=== PATIENT | male | born 1940 | race Caucasian/White ===

== ENCOUNTER 2016-09-22 08:57 | Outpatient (CLI) | payer MEDICARE, MEDICAID ==
[~2016-09-22] VITALS: Ht 175.3 cm; Wt 86.4 kg
--- NOTE | ~2016-09-22 | HEMODYNAMI ---
PATIENT:DANAE HUA MEDICAL RECORD: [id number] : 40 LOCATION:DPITER ADMISSION DATE: 09/22/16 Generatedon:09/22/201611:22 Patient name: DANAE HUA Patient #: [id number] SSN: : 1940 Date of study: 09/22/2016 Page: Of Hemodynamic Procedure Report Patient Data Patient Demographics Procedure consent was obtained First Name: DANAE Gender: Male Last Name: MELITA Suffix: [facility] Initial: LULÚ : 1940 Patient #: [id number] Age: 76 year(s) Race: Additional ID: [id number] Contact details Address: [address] [place] [address] State: [place] City: [facility] Zip code: [address] Past Medical History History of disease Date Diagnosis Comments Peripheral vascular disease CHF->KNIGHT CAD Hypertension Allergies Allergen Reaction Date Comments Reported Penicillins 10/08/2015 Penicillins 09/22/2016 Admission Admission Data Admission Date: 09/22/2016 Admission Time: 8:57 Admit Source: Other Lab Results Lab Result Date: 09/22/2016 Lab Result Time: 0:00 Biochemistry Name Units Result Min Max BUN mg/dl 26 --(----)-* 7 18 Creatinine mg/dl 0.9 --(-*--)-- 0.6 1.3 CBC Name Units Result Min Max Hemoglobin g/dl 14.1 --(*---)-- 13.5 17.5 Procedure Procedure Types Cath Procedure Diagnostic Procedure C LH w/Coronaries PCI Procedure Coronary Stent Initial Peripheral Cath Diagnostic Procedure Cath Peripheral Srtki-Ixsdgzw-Bei-Off Procedure Description Procedure Date Procedure Date: 09/22/2016 Procedure Start Time: 10:50 Procedure End Time: 11:22 Procedure Staff Name Function Oni Isabel MD Performing Physician Mc Vega RT Scrub Bhaskar Bravo RN Nurse Heather Ferreira RT Monitor Gomez Chadwick RT Monitor Procedure Data Cath Procedure Fluoroscopy Diagnostic fluoroscopy Total fluoroscopy Time: 3.3 time: 3.3 min min Diagnostic fluoroscopy Total fluoroscopy dose: 738 dose: 738 mGy mGy Contrast Material Contrast Material Type Amount (ml) Isovue 300 136 Entry Location Entry Primary Successful Side Size Upsize Upsize Entry Closure Succes sful Closure Location (Fr) 1 (Fr) 2 (Fr) Remarks Device Remarks Femoral Left 5 Fr 6 Fr Exoseal artery Short Diagnostic catheters Device Type Used For End Catheter Placement Cordis 5Fr Pigtail Procedure Catheter (MP) Cordis 5Fr JL 4.0 Procedure Catheter (MP) Cordis 5Fr 3DRC Catheter Procedure (MP) Procedure Medications Medication Administration Route Dosage Oxygen NC 2 l/min Heparin Flush Bag added to field 2 bags (1000units/500ml NS) Fentanyl I.V. 50 mcg Versed I.V. 1 mg 0.9% NaCl I.V. 100 ml/hr Fentanyl I.V. 50 mcg Versed I.V. 1 mg Fentanyl I.V. 50 mcg Heparin Bolus I.V. 4000 units Fentanyl I.V. 50 mcg Hemodynamics Rest HGB: 14.1 (g/dl) Heart Rate: 65 (bpm) Pressure Samples Time Site Value (mmHg) Purpose Heart Use Rate(bpm) 10:59 LV 139/11,23 Snapshot 79 10:59 AO 137/75(101) Pullback 73 Gradients Valve Time Site Site 2 Mean SEP/DFP Peak To Heart Use 1 (mmHg) (sec/min) Peak Rate (mmHg) (bpm) Aortic 10:59 LV AO 20 60 73 137/75(101) Calculations Valve P-P Mean Valve Index Valve Source Name Gradient Area Flow (cm2) Aortic 20 20 Snapshots Pre Cath Intra NCS Post Cath Vital Signs Time Heart Resp SPO2 etCO2 [id number] NIBP (mmHg) Rhythm Pain Sedation Rate (ipm) (%) (mmHg) (mmHg) Status Level (bpm) 10:23:00 72 18 96 0 0 146/92(122) NSR 0 (11) 10(A) , No pain 10:27:16 71 18 94 0 0 127/88(113) NSR 0 (11) 10(A) , No pain 10:31:24 69 19 96 0 0 141/86(106) NSR 0 (11) 10(A) , No pain 10:35:40 70 20 97 0 0 131/78(113) NSR 0 (11) 10(A) , No pain 10:39:50 69 19 97 0 0 134/79(116) NSR 0 (11) 10(A) , No pain 10:44:04 69 18 97 0 0 137/77(122) NSR 0 (11) 10(A) , No pain 10:48:19 69 18 98 0 0 138/75(117) NSR 0 (11) 9(A) , No pain 10:52:35 69 18 95 0 0 129/74(107) NSR 0 (11) 9(A) , No pain 10:56:45 69 17 97 0 0 138/81(108) NSR 0 (11) 9(A) , No pain 11:00:57 69 17 95 0 0 131/84(114) NSR 0 (11) 9(A) , No pain 11:05:07 69 17 94 0 0 131/83(103) NSR 0 (11) 9(A) , No pain 11:09:17 70 17 97 0 0 147/85(126) NSR 0 (11) 9(A) , No pain 11:13:35 71 19 95 0 0 150/85(124) NSR 0 (11) 10(A) , No pain 11:17:53 70 17 94 0 0 138/86(127) NSR 0 (11) 10(A) , No pain Medications Time Medication Route Dose Verified Delivered Reason Notes Effectiveness by by 10:26:08 Oxygen NC 2 Bhaskar Bhaskar Per physician l/min Lawrence Bravo RN RN 10:26:18 Heparin Flush added 2 Bhaskar Bhaskar used for Bag to bags Lawrence Bravo procedure rn (1000units/500ml field RN NS) 10:48:25 Fentanyl I.V. 50 Bhaskar Bhaskar for sedation mcg Lawrence Bravo RN RN 10:48:34 Versed I.V. 1 mg Bhaskar Bhaskar for sedation Lawrence Bravo RN RN 10:48:51 0.9% NaCl I.V. 100 Bhaskar Bhaskar Per physician ml/hr Lawrence Bravo RN RN 10:54:35 Fentanyl I.V. 50 Bhaskar Bhaskar for sedation mcg Lawrence Bravo RN RN 10:54:40 Versed I.V. 1 mg Bhaskar Bhaskar for sedation Bravo Bravo RN RN 11:05:29 Fentanyl I.V. 50 Bhaskar Muro for sedation [facility] Lawrence Bravo RN RN 11:05:51 Heparin Bolus I.V. 4000 Bhaskar Muro for units Lawrence Bravo RN anticoagulation RN 11:06:33 Fentanyl I.V. 50 Bhaskar Muro for sedation [facility] Lawrence Bravo RN image editor Log Time Note 10:03:17 Bhaskar Bravo RN sent for patient. Start room use. 10:13:19 Time tracking: Regular hours 10:13:22 Plan of Care:Hemodynamics will remain stable., Cardiac rhythm will remain stable., Comfort level will be maintained., Respiratory function will remain adequate., Patient/ family verbilizes understanding of procedure., Procedure tolerated without complication., Recovers from procedure without complications.. 10:16:25 Patient received from Pre/Post Procedure Room to CCL 1 Alert and oriented. Tansferred to table in Supine position. 10:16:27 Warm blankets applied, and umberto hugger turned on for patient comfort. 10:16:27 Correct patient and procedure confirmed by team. 10:16:30 Signed procedure consent form obtained from patient. 10:16:31 ECG and BP/O2 sat monitors applied to patient. 10:16:32 Full Disclosure recording started 10:21:52 Vital chart was started 10:21:53 Baseline sample Acquired. 10:22:02 Rhythm: sinus rhythm 10:22:32 H&P Date Dictated: 09/13/2016 Within 30 days and on chart., H&P Addendum completed by physician on day of procedure. (MUST COMPLETE FOR ALL OUTPATIENTS). 10:22:34 Pre-procedure instructions explained to patient. 10:22:34 Pre-op teaching completed and patient verbalized understanding. 10:22:37 Family in waiting room. 10:22:40 Patient NPO since Midnight. 10:22:48 Patient allergic to Penicillins 10:22:52 Is the patient allergic to Iodine/contrast media? No. 10:22:55 Is patient on blood thinner?Yes 10:23:00 ACC The patient was administered the following blood thiners within the last 24 hours: ACCPlavix 10:23:04 Patient diabetic? No. 10:23:07 ----Pre-sedation anethsthesia assessment.---- 10:23:10 Previous problem with sedation/anesthesia? No ? 10:23:13 Snore? Yes 10:23:15 Sleep apnea? No 10:23:17 Deviated septum? No 10:23:19 Opens mouth fully? Yes 10:23:20 Sticks out tongue? Yes 10:23:27 Airway obstruction? Yes COPD 10:23:33 Dentures? No ? 10:23:38 Pre procedure: right dorsailis pedis pulse 1+ Palpable, but thready & weak; easily obliterated 10:23:43 Patient pain scale 0/10 ?. 10:23:53 IV patent on arrival in left forearm with 0.9% NaCl at [facility]. 10:26:08 Oxygen 2 l/min NC was administered by Bhaskar Bravo RN; Per physician; 10:26:18 Heparin Flush Bag (1000units/500ml NS) 2 bags added to field was administered by Bhaskar Bravo RN; used for procedure; 10:30:04 Lab Result : BUN 26 mg/dl 10:30:04 Lab Result : Hemoglobin 14.1 g/dl 10:30:04 Lab Result : Creatinine 0.9 mg/dl 10:30:08 Lab results completed and on chart. 10:30:13 Right groin area was prepped with chlora-prep and draped in sterile fashion 10:30:16 Alarms reviewed by R. N. 10:30:31 Sharps counted by scrub and verified by R.N. 10:30:37 Use device set Femoral Dx 10:30:40 Acist Syringe opened to sterile field. 10:30:41 Bag Decanter opened to sterile field. 10:30:43 Medline Cath Pack opened to sterile field. 10:30:44 Terumo 5Fr [place] Sheath opened to sterile field. 10:30:47 St Won 260cm J .035 wire opened to sterile field. 10:30:49 Acist Hand Control opened to sterile field. 10:30:50 Acist Manifold opened to sterile field. 10:30:54 Diagnostic Infinity 5Fr Multipack catheter opened to sterile field. 10:30:56 Tegaderm 4 x 4 opened to sterile field. 10:31:44 Physician arrived 10:31:45 --------ALL STOP TIME OUT------ 10:31:46 Final Timeout: patient, procedure, and site verified with staff and physician. All members of the team are in agreement. 10:31:48 Right groin site verified by team. 10:31:52 Physical assessment completed. ASA score P 2 - A patient with mild systemic disease as per Oni Isabel MD. 10:31:56 Sedation plan: IV Moderate Sedation Versed, Fentanyl 10:37:08 Zero performed for pressure channel P1 10:40:09 Admit Source: Other 10:40:16 Baseline sample Acquired. 10:48:25 Fentanyl 50 mcg I.V. was administered by Bhaskar Bravo RN; for sedation; 10:48:34 Versed 1 mg I.V. was administered by Bhaskar Bravo RN; for sedation; 10:48:51 0.9% NaCl 100 ml/hr I.V. was administered by Bhaskar Bravo RN; Per physician; 10:50:13 Procedure started. 10:50:21 Local anesthetic to right femoral artery with Lidocaine 2% by Oni Isabel MD.INITIAL ACCESS ONLY 10:54:35 Fentanyl 50 mcg I.V. was administered by Bhaskar Bravo RN; for sedation; 10:54:40 Versed 1 mg I.V. was administered by Bhaskar Bravo RN; for sedation; 10:57:15 UNABLE TO ADVANCE J WIRE INTO RIGHT ILIAC 10:57:25 Local anesthetic to left femerol artery with Lidocaine 2% by Oni Isabel MD.ADDITIONAL ACCESS 10:57:43 A 5 Fr sheath was inserted into the Left Femoral artery 10:58:00 A Cordis 5Fr Pigtail Catheter (MP) was advanced over the wire and used for Procedure. 10:58:17 Procedure type changed to Cath procedure, Diagnostic procedure, LHC, LHC w/Coronaries, PCI procedure, Coronary Stent Initial, Peripheral Cath Diagnostic Procedure, Cath Peripheral, Vcidw-Izkiqay-Grc-Off 10:59:37 Abdominal Aortagram was performed. 10:59:56 Left leg runoff performed. 11:01:01 Right leg runoff performed. 11:03:06 LV gram done using ALMEIDA 11:03:08 LV hemodynamics recorded. 11:03:17 Catheter removed. 11:03:22 A Cordis 5Fr JL 4.0 Catheter (MP) was advanced over the wire and used for Procedure. 11:03:25 LCA angiography performed. 11:03:32 Catheter removed. 11:03:37 A Cordis 5Fr 3DRC Catheter () was advanced over the wire and used for Procedure. 11:04:13 [place] Whisper J 300cm 0.014 guide wire opened to sterile field. 11:04:14 [place] BasixCompak Inflation Kit opened to sterile field. 11:04:20 RCA angiography performed. 11:04:47 Catheter removed. 11:04:48 Proceeding to intervention. 11:04:57 PCI Cath status Elective 11:05:16 Terumo 6Fr [place] Sheath opened to sterile field. 11:05:29 Fentanyl 50 mcg I.V. was administered by Bhaskar Bravo RN; for sedation; 11:05:35 Sheath upsized to a 6 Fr Short. 11:05:51 Heparin Bolus 4000 units I.V. was administered by Bhaskar Bravo RN; for anticoagulation; 11:06:04 Cordis 6FR XBLAD 4.0 guide catheter opened to sterile field. 11:06:32 ACC PCI Site: [facility] has 80% stenosis. 11:06:33 Fentanyl 50 mcg I.V. was administered by Bhaskar Bravo RN; for sedation; 11:06:42 6 Fr XBLAD 4 guide catheter was inserted over the wire 11:07:43 TimeBridgeISPER wire advanced. 11:09:24 Inflation Number: 1 A Medtronic Resolute 3.0 X 12 stent was prepped and advanced across the Mid CX. The stent was deployed at 17 JOSE for 0:10 (min:sec). 11:09:33 Stent catheter was removed intact over wire. 11:09:34 Wire removed. 11:09:35 Guide catheter removed. 11:09:46 Cordis 6Fr Exoseal opened to sterile field. 11:09:59 Sheath removed intact; hemostasis achieved with Exoseal to the Left Femoral artery. 11:10:05 Procedure ended.(Physican Out) 11:11:48 Fluoroscopy time 03.30 minutes. 11:11:55 Fluoroscopy dose: 738 mGy 11:11:55 Flurop Dose total: 738 11:12:01 Contrast amount:Isovue 300 136ml. 11:12:03 Sharps counted by scrub and verified by R.N. 11:20:09 Post left femerol artery:oozing 11:20:19 Femstop placed over the left femerol artery at 113 mmHg. Hemostasis achieved. 11:20:22 Post Procedure Pulses reassessed and unchanged 11:21:50 Post procedure: left dorsailis pedis pulse Doppler. 11:21:54 Post-procedure physical assessment completed. ASA score P 2 - A patient with mild systemic disease as per Oni Isabel MD. 11:21:58 Post procedure rhythm: sinus rhythm 11:22:00 Procedure and supply charges have been captured, reviewed, submitted and are correct. 11:22:02 Vital chart was stopped 11:22:03 See physician's report for complete and final results. 11:22:07 Report given to Pre/Post Procedure Room. 11:22:12 Patient transfered to Pre/Post Procedure Room with Stretcher. 11:22:15 Procedure ended. 11:22:15 Full Disclosure recording stopped 11:22:27 End room use (Document Last) Intervention Summary Intervention Notes Time ActionType Lesion and Equipment Action# Pressure Duration Attributes Used 11:09:24 Place stent Mid CX Medtronic 1 17 00:10 Resolute 3.0 X 12 stent Device Usage Item Name Manufacture Quantity Catalog Hospital Part Current Minimal Lot# / Number Charge Number Stock Stock Serial# Code Acist Acist 1 59625 093793 061434 832282 20 Syringe Medical Systems Inc Bag Microtek 1 2002S 296998 11500 592432 5 DecGreen Is Good Medical Inc. Medline Cardinal 1 [id number] 902504 26381 426767 5 Cath Pack Health Terumo 5Fr Terumo 1 PEE060 517678 192787 325016 [address] St Won 1 927127 324443 708188 424314 30 260cm J .035 wire Acist Hand Acist 1 73482 651129 471616 178128 5 Control Medical Systems Inc Acist Acist 1 13610 960023 964348 147651 5 Manifold Medical Systems Inc Diagnostic Cardinal 1 PO1021 756421 24792 281379 30 Infinity Health 5Fr Multipack catheter Tegaderm 4 3M 1 1626W 558569 091014 431288 5 x 4 Cordis 5Fr Cardinal 1 996444 5 Pigtail Health Catheter (MP) Cordis 5Fr Cardinal 1 764434 5 JL 4.0 Health Catheter (MP) Cordis 5Fr Cardinal 1 728849 5 3DRC Health Catheter (MP) [place] 1 [id number] 015060 288732 231927 5 Whisper J Vascular 300cm 0.014 guide wire [facility] 1 DO8779 503646 373680 251470 15 [id number] BasixCompak Medical Inflation Kit Terumo 6Fr Terumo 1 JBV392 908002 072834 352991 40 [place] Sheath Cordis 6FR Cardinal 1 [id number] 698399 305688 544924 3 XBLAD 4.0 Health guide catheter Medtronic Medtronic 1 [id number] 899953 969970 9 [id number] Resolute 3.0 X 12 stent Cordis 6Fr Cardinal 1 EX600 061141 662039 977812 10 [facility] Signature Audit [place] Stage Time Signature Unsigned Intra-Procedure 09/22/2016 Gomez Chadwick 11:22:54 AM RT(R) (CV) Signatures Monitor : Heather Signature : Hanna RT Date : Time : Monitor : Gomez Chadwick RT Signature : Date : Time : [place] [id number] [place] [address]
[~2016-09-22 08:57] MED LIST: ASPIRIN81 MG PO; COUMADIN5 MG PO; FOLTX TABLET1 EACH PO; HYDROCODONE-APA1 TAB PO; MUCINEX600 MG PO; PACERONE100 MG PO; PLAVIX75 MG PO
[2016-09-22] MEDS ORDERED: NAMENDA5 MG PO (09:43)
[2016-09-22] MEDS ORDERED: PACERONE200 MG PO (09:44)
[2016-09-22] MEDS ORDERED: LIPITOR10 MG PO (09:44)
[2016-09-22] MEDS ORDERED: FLOMAX0.4 MG PO (09:44)
[2016-09-22] MEDS ORDERED: VIBRAMYCIN 100100 MG PO (09:45)
[2016-09-22 09:54] VITALS: BP 138/79; Ht 175.3 cm; Wt 86.4 kg
[2016-09-22 09:54] LABS: BASOPHILS 0.4 % (0.0-2.0); EOSINOPHILS 1.5 % (0-7); HEMATOCRIT 43.1 % (42.0-54.0); HEMOGLOBIN 14.1 g/dL (13.5-17.5); IMMATURE GRANULOCYTES 0.8 % (0-5); LYMPHOCYTES 19.2 % (15-50); MCH 30.9 pg (26.0-34.0); MCHC 32.7 g/dL (31.0-37.0); MCV 94.5 fL (80.0-100.0); MEAN PLATELET VOLUME 10.3 fL (7.4-10.4); MONOCYTES 6.4 % (2-11); NEUTROPHILS 71.7 % (40-80); PLATELET COUNT 229 10x3/uL (130-400); RBC 4.56 10x6/uL (4.20-6.10); RDW 14.3 % (11.5-14.5)
[2016-09-22 10:05] LABS: CALC OSMOLALITY 282 mosm/kg (275-300); CALCIUM 8.7 mg/dL (8.5-10.1); CARBON DIOXIDE 23.7 mmol/L (21.0-32.0); CHLORIDE - SERUM 103 mmol/L (98-107); CREATININE - SERUM 0.9 mg/dL (0.6-1.3); GLUCOSE 104 mg/dL (74-106); POTASSIUM - SERUM 4.3 mmol/L (3.5-5.1); SODIUM 139 mmol/L (136-145); UREA NITROGEN 26 mg/dL (7-18); eGFR NON AFRICAN AMERICAN 87 mL/min (90-120)
--- NOTE | 2016-09-22 11:45 | NUR ---
RESTING QUIETLY. 2L NC, NO RESP DISTRESS NOTED. VSS. NO C/O CHEST PAIN OR NAUSEA. LEFT GROIN CDI, NO BLEEDING OR HEMATOMA NOTED. FEMSTOP IN PLACE. INSTRUCTED PT TO KEEP HEAD FLAT ON PILLOW AND LEFT LEG STRAIGHT.
--- NOTE | 2016-09-22 12:00 | NUR ---
QUIETLY RESTING IN ROOM. VSS. NO C/O AT THIS TIME. LEFT GROIN CDI, NO BLEEDING OR HEMATOMA NOTED. NO RESP DISTRESS NOTED. WILL CONTINUE TO MONITOR.
--- NOTE | 2016-09-22 12:30 | NUR ---
FEMSTOP PRESSURE DECREASED BY 20. NO BLEEDING NOTED TO LEFT GROIN. VSS. NO C/O CHEST PAIN OR NAUSEA. 2L NC, NO RESP DISTRESS NOTED. AT BEDSIDE, CALL LIGHT WITHIN REACH.
--- NOTE | 2016-09-22 13:03 | NUR ---
FEMSTOP PRESSURE DECREASED BY 20. NO BLEEDING OR HEMATOMA NOTED. VSS. NO C/O CHEST PAIN OR NAUSEA.
--- NOTE | 2016-09-22 13:31 | NUR ---
FEMSTOP PRESSURE DECREASED BY 20. NO BLEEDING NOTED TO SITE. VSS. CALL LIGHT WITHIN REACH.
--- NOTE | 2016-09-22 14:15 | NUR ---
REMAINING FEMSTOP PRESSURE REMOVED. NO BLEEDING NOTED AT SITE. VSS. NO C/O AT THIS TIME.
--- NOTE | 2016-09-22 15:30 | NUR ---
HOB ELEVATED 30 DEGREES. NO BLEEDING NOTED TO LEFT GROIN.
--- NOTE | 2016-09-22 15:50 | NUR ---
LEFT FA PIV D/C'D WITH CATHETER INTACT. BAND AID TO SITE. UP TO BEDSIDE TO GET DRESSED.
--- NOTE | 2016-09-22 16:00 | NUR ---
UP TO RESTROOM TO VOID.
--- NOTE | 2016-09-22 16:10 | NUR ---
DISCHARGE INSTRUCTIONS GIVEN, VERBALIZED UNDERSTANDING.
--- NOTE | 2016-09-22 16:15 | NUR ---
TAKEN OUT VIA WHEELCHAIR BY CATH UX CONSULTANT. LEFT FACILITY WITH FAMILY MEMBER AND ALL PERSONAL BELONGINGS.
--- NOTE | 2016-09-23 08:41 | OP ---
PATIENT NAME: DANAE HUA SR MEDICAL RECORD: [id number] :40 LOCATION:D.CAT ADMISSION DATE: SURGEON: MADHURI MELÉNDEZ MD DATE OF OPERATION: 09/22/2016 PROCEDURES: 1. PTCA stent of the left circumflex. 2. Left heart catheterization. 3. Selective coronary angiography. 4. Left ventriculogram. INDICATIONS: Angina and coronary artery disease. PROCEDURE IN DETAIL: After informed consent was obtained and after a detailed explanation of risks, benefits as well as alternative therapies, the patient elected to proceed with angiogram and angioplasty. The left femoral area had a preexisting sheath from aortofemoral runoff. All catheters exchanged through this sheath. FINDINGS: Left ventriculogram was performed in standard 30-degree ALMEIDA view, reveals good cardiac wall motion throughout all segments. Overall ejection fraction is 60%. SELECTIVE CORONARY ANGIOGRAPHY: 1. Left main has no significant angiographic disease. 2. Left anterior descending has previously placed stents, these are widely patent with no significant restenosis. No disease elsewise throughout the LAD or its branches. 3. Left circumflex has previously placed stents. There is 1 area of 80% in-stent restenosis in the mid vessel. 4. Right coronary has moderate irregularities, but no flow-limiting stenosis. PTCA STENT OF THE LEFT CIRCUMFLEX: The stent used was a 3.0 x 12 mm Resolute, taken to 17 atmospheres. Result was 0% residual stenosis. OVERALL IMPRESSION: Successful percutaneous transluminal coronary angioplasty stent of the left circumflex going from 80% initial stenosis to 0% residual. TRANSINT:[id number] Voice Confirmation ID: [id number] DOCUMENT ID: [id number] MADHURI MELÉNDEZ MD at 0841 CC: [id number] DICTATION DATE: 09/22/16 1114 SUPERVISOR LAUNDRY: 09/22/16 1902 DEP CLI 09/22/16 [facility] [address] [place] [address]
--- NOTE | 2016-09-23 08:41 | OP ---
PATIENT NAME: DANAE HUA SR MEDICAL RECORD: [id number] :40 LOCATION:D.CAT ADMISSION DATE: SURGEON: MADHURI MELÉNDEZ MD DATE OF OPERATION: 09/22/2016 PROCEDURES: 1. Aortofemoral runoff. 2. Abdominal aortography. INDICATIONS: Claudication and peripheral vascular disease. PROCEDURE IN DETAIL: After informed consent was obtained and after a detailed explanation of risks, benefits as well as alternative therapies, the patient elected to proceed with angiogram and aortofemoral runoff. The left femoral area was prepped and draped in normal sterile fashion. The left femoral artery was cannulated via modified Seldinger technique with placement of 6-Danish sheath. All catheters exchanged through this sheath. FINDINGS: Abdominal aortography was performed. The catheter was pulled down for aortofemoral runoff. Abdominal aortography reveals no significant abdominal aortic disease. No dissection or aneurysm formation. No renal artery stenosis. RIGHT LEG: A. Iliac: The common internal and external iliacs are heavily calcified. The external iliacs have previously placed stents, these are patent and very tortuous as well. B. Femoral system: The common and deep femoral are widely patent. Superficial femoral has multiple areas of previously placed stents, these are widely patent with no significant restenosis. No disease elsewise. C. Popliteal and infrapopliteal vessels are patent giving 3-vessel runoff to the foot, although diffusely diseased. LEFT LEG: A. Iliac: The common internal and external iliacs are tortuous, calcified, but no flow-limiting stenosis. B. Femoral system: The common and deep femoral are widely patent. Superficial femoral was totally occluded. There is a very large collateralization off the deep femoral system to distal SFA, this really acts as a femoral popliteal bypass graft due to its size, it is widely patent. The distal SFA is widely patent. C: Popliteal and infrapopliteal vessels are patent giving 3-vessel runoff to the foot. OVERALL IMPRESSION: Wide patency of the previously placed stents on the right SFA. Wide patency of large collateralization off the deep femoral system to the left distal SFA. Continue medical management of peripheral vascular disease and peripheral risk factors. TRANSINT:[id number] Voice Confirmation ID: [id number] DOCUMENT ID: [id number] OPERATIVE REPORT [id number] MELITADANAE MADHURI ZAMORA SR, MD at 0841 CC: [id number] DICTATION DATE: 09/22/16 1113 SNAKER: 09/22/16 1858 DEP CLI 09/22/16 [facility] [address] [place] [address]
== END 2016-09-22 16:15 | disposition home or self-care (01) ==
LOC: D.CATH 08:57
PROVIDERS: Internal Medicine Interventional Cardiology
DX: I25.119 Atherosclerotic heart disease of native coronary artery with unspecified angina pectoris (principal); I70.213 Atherosclerosis of native arteries of extremities with intermittent claudication, bilateral legs
CPT/HCPCS: 93458; C9600

== ENCOUNTER → 2016-10-22 09:03 | Outpatient (CLI) | payer MEDICARE, MEDICAID ==
[2016-09-22 09:54] VITALS: BMI 28.1
[~2016-10-22 09:03] MED LIST changes: +FLOMAX0.4 MG PO; +LIPITOR10 MG PO; +NAMENDA5 MG PO; +PACERONE200 MG PO; +VIBRAMYCIN 100100 MG PO
[2016-10-22 11:13] LABS: % SATURATION 21 % (15-55); IRON 60 ug/dl (35-150); TOTAL IRON BIND CAPACITY 277 ug/dl (260-445); UNSAT IRON BIND CAPACITY 217 ug/dl (150-375)
[2016-10-22 11:37] LABS: MAGNESIUM - SERUM 1.8 mg/dL (1.8-2.4)
[2016-10-22 16:13] LABS: ALBUMIN 3.8 g/dL (3.4-5.0); BILIRUBIN - DIRECT 0.09 mg/dL (0.00-0.30); BILIRUBIN - INDIRECT 0.31 mg/dL (0.00-1.00); BILIRUBIN - TOTAL 0.4 mg/dL (0.2-1.3); CHOL - HDL RATIO 3.7 ratio (2.3-4.9); LDL-HDL RATIO 2.1 ratio (1.5-3.5); PROTEIN - SERUM 7.1 g/dL (6.4-8.2); THYROID STIMULATING HORMONE 0.68 uIU/mL (0.36-3.74)
== END | disposition home or self-care (01) ==
LOC: D.LABREF 09:03
PROVIDERS: Family Medicine
DX: D64.9 Anemia, unspecified (principal); I25.10 Atherosclerotic heart disease of native coronary artery without angina pectoris

== ENCOUNTER → 2016-11-10 15:09 | Outpatient (CLI) | payer MEDICARE, MEDICAID ==
[2016-09-22 09:54] VITALS: BMI 28.1
[~2016-11-10 15:09] MED LIST changes: +HYDROCODON-ACE1 EAC9 PO; +SPIRIVA18 MCG INH; +VENTOLIN HFA18 GM INH
== END | disposition home or self-care (01) ==
LOC: D.LABREF 15:09
DX: L03.119 Cellulitis of unspecified part of limb (principal)

== ENCOUNTER 2016-11-11 10:44 | Inpatient (IN) | payer MEDICARE, MEDICAID ==
[~2016-11-11] VITALS: Ht 175.3 cm; Wt 88.6 kg
[~2016-11-11 10:44] MED LIST changes: -HYDROCODON-ACE1 EAC9 PO; -SPIRIVA18 MCG INH; -VENTOLIN HFA18 GM INH
[2016-11-11 11:00] VITALS: BP 131/73
[2016-11-11] MEDS ORDERED: SPIRIVA18 MCG INH (11:02)
[2016-11-11] MEDS ORDERED: VENTOLIN HFA18 GM INH (11:03)
[2016-11-11] MEDS ORDERED: HYDROCODON-ACE1 EAC9 PO (11:04)
[2016-11-11 12:00] LABS: BASOPHILS 0.2 % (0-2); EOSINOPHILS 1.8 % (0-7); HEMATOCRIT 40.6 % (42.0-54.0); HEMOGLOBIN 13.5 g/dL (13.5-17.5); IMMATURE GRANULOCYTES 0.5 % (0-5); LYMPHOCYTES 12.2 % (15-50); MCH 30.9 pg (26.0-34.0); MCHC 33.3 g/dL (31.0-37.0); MCV 92.9 fL (80.0-100.0); MEAN PLATELET VOLUME 10.7 fL (7.4-10.4); MONOCYTES 9.2 % (2-11); NEUTROPHILS 76.1 % (40-80); PLATELET COUNT 225 10x3/uL (130-400); RBC 4.37 10x6/uL (4.20-6.10); RDW 14.3 % (11.5-14.5); WBC 8.3 10x3/uL (4.8-10.8)
[2016-11-11 12:11] VITALS: BP 161/64; Ht 175.3 cm; Wt 88.6 kg
[2016-11-11 12:13] LABS: ALBUMIN 3.4 g/dL (3.4-5.0); ANION GAP 10.3 mmol/L (8-16); BILIRUBIN - TOTAL 0.29 mg/dL (0.2-1.3); CARBON DIOXIDE 28.9 mmol/L (21.0-32.0); CREATININE - SERUM 1.3 mg/dL (0.6-1.3); POTASSIUM - SERUM 4.2 mmol/L (3.5-5.1); PROTEIN - SERUM 6.9 g/dL (6.4-8.2)
--- NOTE | 2016-11-11 13:44 | NUR ---
RESTING WITH EYES CLOSED,WITHOUT DISTRESS.
[2016-11-11 15:57] VITALS: BP 133/79
[2016-11-11 20:00] VITALS: BP 134/80
[2016-11-12] VITALS: BP 99/54
--- NOTE | 2016-11-12 00:07 | NUR ---
URINE COLECTED AND SENT TO LAB.
[2016-11-12 00:57] LABS: APPEARANCE CLEAR (CLEAR); COLOR STRAW (YELLOW)
[2016-11-12 00:58] LABS: BILIRUBIN NEGATIVE (NEGATIVE); GLUCOSE NEGATIVE (NEGATIVE); KETONE NEGATIVE (NEGATIVE); LEUKOCYTE ESTERASE NEGATIVE (NEGATIVE); NITRITE NEGATIVE (NEGATIVE); PH 6.5 (5.0-6.0); PROTEIN NEGATIVE (NEGATIVE); SPECIFIC GRAVITY 1.005 (1.005-1.020); UROBILINOGEN NORMAL (NORMAL)
[2016-11-12 04:00] VITALS: BP 112/70
--- NOTE | 2016-11-12 04:00 | NUR ---
PATIENT SLEEPING WITH NO DISTRESS NOTED. AGREE WITH STAPLE SIDE LASTER ASSESSMENT.
[2016-11-12 05:44] LABS: BASOPHILS 0.3 % (0-2); EOSINOPHILS 4.3 % (0-7); HEMATOCRIT 40.6 % (42.0-54.0); HEMOGLOBIN 13.2 g/dL (13.5-17.5); IMMATURE GRANULOCYTES 0.3 % (0-5); LYMPHOCYTES 21.9 % (15-50); MCH 30.2 pg (26.0-34.0); MCHC 32.5 g/dL (31.0-37.0); MCV 92.9 fL (80.0-100.0); MEAN PLATELET VOLUME 10.6 fL (7.4-10.4); MONOCYTES 10.2 % (2-11); PLATELET COUNT 240 10x3/uL (130-400); RBC 4.37 10x6/uL (4.20-6.10); RDW 14.2 % (11.5-14.5)
[2016-11-12 05:46] LABS: WBC 5.8 10x3/uL (4.8-10.8)
[2016-11-12 05:56] LABS: ANION GAP 10.5 mmol/L (8-16); BILIRUBIN - TOTAL 0.21 mg/dL (0.2-1.3); CALCIUM 8.8 mg/dL (8.5-10.1); CARBON DIOXIDE 28.6 mmol/L (21.0-32.0); CREATININE - SERUM 1.2 mg/dL (0.6-1.3); POTASSIUM - SERUM 4.1 mmol/L (3.5-5.1); PROTEIN - SERUM 6.4 g/dL (6.4-8.2)
--- NOTE | 2016-11-12 07:00 | NUR ---
REPORT RECEIVED FROM DIAL EQUIPMENT ENGINEER NURSE. CALL LIGHT IN REACH.
[2016-11-12 07:46] VITALS: BP 134/72
--- NOTE | 2016-11-12 08:30 | NUR ---
REQUESTING BENADRYL CREAM FOR ARM. WILL NOTIFY MD. IV TUBING TAGGED. CALL LIGHT IN REACH. PASSWORD OBTAINED AND PLACED IN COMPUTER.
--- NOTE | 2016-11-12 10:55 | NUR ---
ASSESSMENT COMPLETED. AM MEDS ADMINISTERED. SCDs TO BLE. CALL LIGHT IN REACH. WILL CONTINUE WITH PLAN OF CARE.
[2016-11-12 11:51] VITALS: BP 128/68
--- NOTE | 2016-11-12 12:50 | NUR ---
NPO UNTIL AFTER CT. AND GRANDSON IN ROOM. CALL LIGHT IN REACH.
--- NOTE | 2016-11-12 13:06 | NUR ---
TO CT VIA WC.
--- NOTE | 2016-11-12 13:07 | NUR ---
RIGHT ARM VERY REDDENED AND SLIGHTLY SWOLLEN. OFF UNIT AT THIS TIME VIA FOR CT OF CHEST. NO NEW C/O.
--- NOTE | 2016-11-12 13:50 | NUR ---
BACK IN ROOM AT THIS TIME. [facility] IVPB. CALL LIGHT IN REACH.
[2016-11-12 14:44] VITALS: BP 126/70
--- NOTE | 2016-11-12 15:34 | NUR ---
VIBRAMYCIN IVPB. CALL LIGHT IN REACH.
--- NOTE | 2016-11-12 17:32 | NUR ---
NO DISTRESS NOTED AT THIS TIME. CALL LIGHT IN REACH.
--- NOTE | 2016-11-12 18:42 | NUR ---
NO CHANGES IN INITIAL ASSESSMENT. SCDs TO BLE. CALL LIGHT IN REACH. WILL CONTINUE WITH PLAN OF CARE.
[2016-11-12 20:00] VITALS: BP 119/75
[2016-11-13] VITALS: BP 124/82
[2016-11-13 04:00] VITALS: BP 124/57
--- NOTE | 2016-11-13 05:17 | NUR ---
PATIENT SLEPT ALL NIGHT WITH NO COMPLAINTS OR NEEDS REQUESTED. HE IS AMBULATORY AND A&Ox3. PIV TO LEFT FOREARM INFUSING AT 75mL/HR. SCD LEFT OFF PER REQUEST.
--- NOTE | 2016-11-13 07:10 | NUR ---
REPORT RECEIVED FROM SLITTER SCORER CUT OFF OPERATOR NURSE. CALL LIGHT IN REACH.
--- NOTE | 2016-11-13 07:55 | NUR ---
PATIENT IN RIGHT LATERAL POSITION RESTING WITH EYES CLOSED. RESPIRATIONS EVEN AND UNLABORED. BED IN LOW POSITION. SIDE RAILS UP X2. CALL LIGHT IN REACH.
[2016-11-13 08:05] VITALS: BP 114/77
--- NOTE | 2016-11-13 08:18 | NUR ---
ASSESSNEBT COMPLETED. AM MEDS ADMINISTERED. REFUSES SCDs AT THIS TIME. CALL LIGHT IN REACH. WILL CONTINUE WITH PLAN OF CARE.
--- NOTE | 2016-11-13 10:49 | NUR ---
YUNIOR DAVIS. NO NEEDS VOICED AT THIS TIME. CALL LIGHT IN REACH.
--- NOTE | 2016-11-13 12:30 | NUR ---
FAMILY IN ROOM. NO NEEDS VOICED AT THIS TIME. CALL LIGHT IN REACH.
[2016-11-13 12:38] VITALS: BP 131/77
--- NOTE | 2016-11-13 14:29 | NUR ---
ANCEF IVPB AND BENADRYL CREAM TO ARM. CALL LIGHT IN REACH.
--- NOTE | 2016-11-13 15:57 | NUR ---
VIBRAMYCIN IVPB PER ORDER. DR. GARDINER IS IN ROOM TO SPEAK WITH PATIENT AND FAMILY.
[2016-11-13 16:01] VITALS: BP 116/83
--- NOTE | 2016-11-13 17:55 | NUR ---
IV SL'D SO PATIENT CAN TAKE SHOWER.
--- NOTE | 2016-11-13 18:50 | NUR ---
NO CHANGES IN INITIAL ASSESSMENT. CALL LIGHT IN REACH. STILL REFUSES SCDs. CALL LIGHT IN REACH. WILL CONTINUE WITH PLAN OF CARE.
[2016-11-13 20:00] VITALS: BP 132/90
--- NOTE | 2016-11-13 20:17 | NUR ---
PATIENT LAYING IN BED WITH NO COMPLAINTS. BED RAILS UPX2, BED IN LOWEST LOCKED POSITION, CALL LIGHT WITHIN REACH, HOB ELEVATED, SCD's OFF PER REQUEST.
[2016-11-14] VITALS: BP 132/94
--- NOTE | 2016-11-14 00:18 | NUR ---
PATIENT WATCHING TV WITH NO VISIBLE SIGNS OF DISTRESS. BED IN LOWEST POSITION AND CALL LIGHT WITHIN REACH.
[2016-11-14 04:00] VITALS: BP 131/80
[2016-11-14 07:44] VITALS: BP 136/82
[2016-11-14] MEDS ORDERED: VIBRAMYCIN 100100 MG PO (10:07)
--- NOTE | 2016-11-14 10:32 | NUR ---
AM MEDS ADMINISTERED. NORCO PO. IV DC'D WITH TIP INTACT.
--- NOTE | 2016-11-14 11:22 | NUR ---
IV DC'D WITH TIP INTACT.
--- NOTE | 2016-11-14 12:55 | NUR ---
EATING LUNCH AT THIS TIME. DENIES NEEDS.
--- NOTE | 2016-11-14 14:17 | NUR ---
DC INSTRUCTIONS EXPLAINED TO PATIENT AND . VERBALIZED UNDERSTANDING. DC'D TO VEHICLE VIA WC WITH FAMILY.
== END 2016-11-14 14:17 | disposition home or self-care (01) | DRG 603 ==
LOC: D.MS 10:44
PROVIDERS: ADMIT Family Medicine
DX: L03.113 Cellulitis of right upper limb (principal); L03.221 Cellulitis of neck; I89.0 Lymphedema, not elsewhere classified; I50.9 Heart failure, unspecified; I10 Essential (primary) hypertension; E78.5 Hyperlipidemia, unspecified; J44.9 Chronic obstructive pulmonary disease, unspecified; I25.10 Atherosclerotic heart disease of native coronary artery without angina pectoris; I73.9 Peripheral vascular disease, unspecified; F17.200 Nicotine dependence, unspecified, uncomplicated; R91.1 Solitary pulmonary nodule

== ENCOUNTER → 2016-11-24 15:00 | Outpatient (CLI) | payer MEDICARE, MEDICAID ==
[2016-11-11 12:11] VITALS: BMI 28.8
[~2016-11-24 15:00] MED LIST changes: +HYDROCODON-ACE1 EAC9 PO; +SPIRIVA18 MCG INH; +VENTOLIN HFA18 GM INH
== END | disposition home or self-care (01) ==
LOC: D.LABREF 15:00
DX: L03.119 Cellulitis of unspecified part of limb (principal)

== ENCOUNTER → 2016-11-24 19:42 | Outpatient (CLI) | payer MEDICARE, MEDICAID ==
[2016-11-11 12:11] VITALS: BMI 28.8
== END | disposition home or self-care (01) ==
LOC: D.LABREF 19:42
DX: L03.119 Cellulitis of unspecified part of limb (principal)

== ENCOUNTER → 2017-01-28 07:40 | Outpatient (CLI) | payer MEDICARE, MEDICAID ==
[2016-11-11 12:11] VITALS: BMI 28.8
== END | disposition home or self-care (01) ==
LOC: D.RT 07:40
DX: J44.9 Chronic obstructive pulmonary disease, unspecified (principal)

== ENCOUNTER → 2017-05-06 09:03 | Outpatient (CLI) | payer MEDICARE, MEDICAID ==
[2017-04-09 12:34] VITALS: BMI 26.8
[~2017-05-06 09:03] MED LIST changes: +ADVAIR 250/501 DISK INH; +BENZONATATE200 MG PO; +OMNICEF300 MG PO; +PREDNISONE10 MG PO
[2017-05-06 09:41] LABS: CREATININE - SERUM 1.3 mg/dL (0.6-1.3)
== END | disposition home or self-care (01) ==
LOC: D.LAB 09:03 → D.CT 09:30
PROVIDERS: Internal Medicine Pulmonary Disease
DX: R91.1 Solitary pulmonary nodule (principal)

== ENCOUNTER 2017-10-24 07:53 | Outpatient (CLI) | payer MEDICARE, MEDICAID ==
[~2017-10-24] VITALS: Ht 175.3 cm; Wt 87.0 kg
--- NOTE | ~2017-10-24 | DS ---
PATIENT:DANAE SUAZO SR :40 MEDICAL RECORD: [id number] DISCHARGE SUMMARY ADMISSION DATE: 10/24/17 DISCHARGE DATE: 10/25/17 DISCHARGE DIAGNOSES: 1. Angina. 2. Coronary artery disease. 3. Percutaneous transluminal coronary angioplasty stent left anterior descending and left circumflex this admission. 4. Peripheral vascular disease. 5. Claudication. 6. Hypertension. 7. Hyperlipidemia. HOSPITAL COURSE: Mr. Suazo presents with unstable anginal symptomatology, found to have significant disease of the circumflex, LAD and diagonal, underwent successful PTCA stent of these territories, was discharged home with the addition of aspirin and Plavix to his medical regimen. He will follow up with [facility] in 1 month. TRANSINT:[id number] Voice Confirmation ID: [id number] DOCUMENT ID: [id number] MADHURI MELÉNDEZ MD at 1006 CC: [id number] DICTATION DATE: 10/25/17 0937 VETERINARY PATHOLOGIST: 10/26/17 0255 DEP CLI 10/25/[address] [address]
--- NOTE | ~2017-10-24 | OP ---
PATIENT NAME: DANAE HUA SR MEDICAL RECORD: [id number] :40 LOCATION:D.CAT ADMISSION DATE: SURGEON: MADHURI MELÉNDEZ MD DATE OF OPERATION: 10/25/2017 PROCEDURES: 1. PTCA and stent of LAD. 2. PTCA and stent of LAD diagonal. 3. Selective coronary angiography. 4. Intravascular ultrasound. INDICATION: Angina and coronary artery disease. PROCEDURE IN DETAIL: After informed consent was obtained and after detailed explanation of risks, benefits as well as alternative therapies, the patient elected to proceed with angiogram and angioplasty. The left femoral area was prepped and draped in normal sterile fashion. The left femoral artery was cannulated via modified Seldinger technique with placement of a 6-Burkinan sheath. All catheters exchanged through this sheath. FINDINGS: The left anterior descending has greater than 70% in-stent restenosis in the mid vessel confirmed by intravascular ultrasound. This was addressed with a 3.0 x 12-mm Tsaile. The diagonal was 80% to 90% stenosed. This was addressed with a 2.5 x 8-mm Ramírez. Result was 0% residual throughout. OVERALL IMPRESSION: Successful PTCA and stent of the LAD and LAD diagonal going from 80% to 90% initial stenosis to 0% residual stenosis. TRANSINT:[id number] Voice Confirmation ID: [id number] DOCUMENT ID: [id number] MADHURI MELÉNDEZ MD at 1006 CC: [id number] DICTATION DATE: 10/25/17 0936 RESEARCH STATISTICIAN: 10/25/17 1334 DEP CLI 10/25/17 [place] [id number] [place] [id number]
--- NOTE | ~2017-10-24 | HEMODYNAMI ---
PATIENT:DANAE HUA SR MEDICAL RECORD: [id number] : 40 [facility] [id number] ADMISSION DATE: 10/24/17 Generatedon:10/25/20179:33 Patient name: DANAE HUA Patient #: [id number] SSN: : 1940 Date of study: 10/25/2017 Page: Of Hemodynamic Procedure Report Patient Data Patient Demographics Procedure consent was obtained First Name: DANAE Gender: Male Last Name: MELITA Suffix: [facility] Initial: LULÚ : 1940 Patient #: [id number] Age: 77 year(s) Race: Additional ID: [id number] Contact details Address: [address] [place] [address] State: [place] City: [facility] Zip code: [address] Past Medical History History of disease Date Diagnosis Comments Peripheral vascular disease CHF->KNIGHT CAD Hypertension Allergies Allergen Reaction Date Comments Reported Penicillins 10/08/2015 Penicillins 09/22/2016 Penicillins 10/24/2017 Admission Admission Data Admission Date: 10/24/2017 Admission Time: 7:53 Room #: D.2127 Height (in.): 5.9 BSA: 0.34 (m2) Height (cm.): 14.99 BMI: 3716.31 (kg/m2) Weight (lbs.): 184 Weight (kg.): 83.46 Lab Results Lab Result Date: 10/24/2017 Lab Result Time: 0:00 Biochemistry Name Units Result Min Max BUN mg/dl 22 --(----)-* 7 18 Creatinine mg/dl 1.1 --(--*-)-- 0.6 1.3 CBC Name Units Result Min Max Hemoglobin g/dl 13.4 -*(----)-- 13.5 17.5 Procedure Procedure Types Cath Procedure Diagnostic Procedure FFR/IVUS Intra-Coronary IVUS Initial Sedation Charges Moderate Sedation up to 15 minutes PCI Procedure Coronary Stent Coronary Stent Initial Coronary Stent Additional Procedure Description Procedure Date Procedure Date: 10/25/2017 Procedure Start Time: 9:14 Procedure End Time: 9:31 Procedure Staff Name Function Oni Isabel MD Performing Physician Darci Ibrahim RT Monitor Mandy Garcia RT Scrub Bhaskar Bravo RN Nurse Procedure Data Cath Procedure Fluoroscopy Diagnostic fluoroscopy Total fluoroscopy Time: 5.1 time: 5.1 min min Diagnostic fluoroscopy Total fluoroscopy dose: 439 dose: 439 mGy mGy Contrast Material Contrast Material Type Amount (ml) Isovue 300 74 Entry Location Entry Primary Successful Side Size Upsize Upsize Entry Closure Succes sful Closure Location (Fr) 1 (Fr) 2 (Fr) Remarks Device Remarks Femoral Left 6 Fr Exoseal artery Short Estimated blood loss: 10 ml Procedure Complications No complications Procedure Medications Medication Administration Route Dosage Oxygen etCO2 Nasal cannula 2 l/min Heparin Flush Bag added to field 2 bags (1000units/500ml NS) 0.9% NaCl I.V. 100 ml/hr Fentanyl I.V. 50 mcg Versed I.V. 1 mg Heparin Bolus I.V. 4000 units Fentanyl I.V. 50 mcg Versed I.V. 1 mg Hemodynamics Rest BSA: 0.34 (m2) HGB: 13.4 (g/dl) O2 Consumption: Estimated: 39.26 (ml/min) O2 Con sumption indexed: Estimated:115.47 (ml/min/m) Heart Rate: 72 (bpm) Snapshots Pre Cath Intra NCS Post Cath Vital Signs Time Heart Resp SPO2 etCO2 NIBP (mmHg) Rhythm Pain Sedation Rate (ipm) (%) (mmHg) Status Level (bpm) 9:07:16 69 16 97 30.8 Measuring NSR 0 (11) 10(A) , No pain 9:08:38 71 16 97 33 Time NSR 0 (11) 10(A) Exceeded , No pain 9:10:55 69 16 96 22.5 Measuring NSR 0 (11) 9(A) , No pain 9:12:17 69 16 94 28.5 Time NSR 0 (11) 9(A) Exceeded , No pain 9:15:17 69 15 97 26.3 153/79(127) NSR 0 (11) 9(A) , No pain 9:19:33 72 16 96 23.3 138/92(111) NSR 0 (11) 9(A) , No pain 9:23:49 65 17 94 30 135/85(109) NSR 0 (11) 9(A) , No pain 9:28:03 69 16 97 20.3 139/87(114) NSR 0 (11) 9(A) , No pain 9:30:24 69 16 97 29.3 156/81(121) NSR 0 (11) 9(A) , No pain Medications Time Medication Route Dose Verified Delivered Reason Notes Effectiveness by by 9:05:36 Oxygen etCO2 2 Oni Muro Per physician Nasal l/min Chalo Bravo RN cannula 9:05:44 Heparin Flush added 2 Oni Muro used for Bag to bags Chalo Bravo RN procedure (1000units/500ml field NS) 9:05:54 0.9% NaCl I.V. 100 Oni Muro Per physician ml/hr Chalo Bravo RN 9:07:50 Fentanyl I.V. 50 Oni Muro for hypokalemia mcg Chalo Bravo RN 9:07:58 Versed I.V. 1 mg Oni Muro for sedation Chalo Bravo RN 9:17:09 Heparin Bolus I.V. 4000 Oni Muro for units Chalo Bravo RN anticoagulation 9:17:16 Fentanyl I.V. 50 Oni Muro for hypokalemia mcg Chalo Bravo RN 9:17:20 Versed I.V. 1 mg Oni Muro for sedation Chalo Bravo RN Procedure Log Time Note 8:30:24 Bhaskar Bravo RN sent for patient. Start room use. 8:36:18 Time tracking: Regular hours (M-F 7:00 - 5:00) 8:36:19 Patient Height : 5.9 inches 8:36:19 Patient Weight : 184 lbs 8:36:21 Plan of Care:Hemodynamics will remain stable., Cardiac rhythm will remain stable., Comfort level will be maintained., Respiratory function will remain adequate., Patient/ family verbilizes understanding of procedure., Procedure tolerated without complication., Recovers from procedure without complications.. 8:36:23 Signed procedure consent form obtained from patient. 8:36:35 H&P Date Dictated: 10/24/2017 Within 30 days and on chart.. 8:51:20 Patient received from Med II to CCL 3 Alert and oriented. Tansferred to table in Supine position. 8:51:21 Warm blankets applied, and umberto hugger turned on for patient comfort. 8:51:21 Correct patient and procedure confirmed by team. 8:51:24 ECG and BP/O2 sat monitors applied to patient. 9:05:25 Vital chart was started 9:05:36 Oxygen 2 l/min etCO2 Nasal cannula was administered by Bhaskar Bravo RN; Per physician; 9:05:44 Heparin Flush Bag (1000units/500ml NS) 2 bags added to field was administered by Bhaskar Bravo RN; used for procedure; 9:05:48 Baseline sample Acquired. 9:05:54 0.9% NaCl 100 ml/hr I.V. was administered by Bhaskar Bravo RN; Per physician; 9:05:54 Rhythm: paced 9:05:56 Full Disclosure recording started 9:05:57 Pre-procedure instructions explained to patient. 9:05:57 Pre-op teaching completed and patient verbalized understanding. 9:06:01 Family in patients room. 9:06:04 Patient NPO since Midnight. 9:06:05 Is the patient allergic to Iodine/contrast media? No. 9:06:06 Is patient on blood thinner?Yes 9:06:08 ACC The patient was administered the following blood thiners within the last 24 hours: ACCPlavix 9:06:09 Patient diabetic? No. 9:06:12 Previous problem with sedation/anesthesia? No ? 9:06:13 Snore? No 9:06:13 Sleep apnea? No 9:06:14 Deviated septum? No 9:06:15 Opens mouth fully? Yes 9:06:16 Sticks out tongue? Yes 9:06:22 Airway obstruction? Yes COPD 9:06:31 Dentures? No Lost Teeth 9:06:35 Pre procedure: right dorsailis pedis pulse 1+ Palpable, but thready & weak; easily obliterated 9:06:37 Pre procedure: left dorsailis pedis pulse 1+ Palpable, but thready & weak; easily obliterated 9:06:39 Patient pain scale 0/10 ?. 9:06:44 IV patent on arrival in right forearm with 0.9% NaCl at [facility]. 9:06:46 Lab results completed and on chart. 9:06:51 Bilateral groins area was prepped with chlora-prep and draped in sterile fashion 9:06:52 Alarms reviewed by R. N. 9:06:52 Sharps counted by scrub and verified by R.N. 9:06:54 --------ALL STOP TIME OUT------ 9:06:54 Final Timeout: patient, procedure, and site verified with staff and physician. All members of the team are in agreement. 9:06:56 Bilateral groins site verified by team. 9::58 Physical assessment completed. ASA score P 2 - A patient with mild systemic disease as per Oni Isabel MD. 9:07:01 Sedation plan: IV Moderate Sedation Medication:Versed, Fentanyl 9:07:50 Fentanyl 50 mcg I.V. was administered by Bhaskar Bravo RN; for hypokalemia; 9::58 Versed 1 mg I.V. was administered by Bhaskar Bravo RN; for sedation; 9:09:03 Vital chart was stopped 9:09:04 Vital chart was started 9:13:23 Use device set Femoral Dx 9:13:45 Use device set TAUTH PCI 9:13:53 PERCUTANEOUS ENTRY 19GA needle opened to sterile field. 9:13:55 Tegaderm 4 x 4 (1626W) opened to sterile field. 9:13:56 ACIST Hand Control (58877) opened to sterile field. 9:13:56 ACIST Manifold (66908) opened to sterile field. 9:13:57 ACIST Syringe (68184) opened to sterile field. 9:13:58 Bag Decanter (2001S) opened to sterile field. 9:13:59 Medline Cath Pack ([id number]) opened to sterile field. 9:13:59 DIAGNOSTIC WIRE .035 260cm J wire (459063) opened to sterile field. 9:14:02 INFLATOR Merit BasixCompak (US0366) opened to sterile field. 9:14:11 CHOICE PT Extra Support J 300cm guide wire ([id number]) opened to sterile field. 9:14:23 SHEATH Prelude 6Fr 0.035 (MAH-5M-27-035) opened to sterile field. 9:14:23 [place] E[place] IVUS Catheter (72244U) opened to sterile field. 9:14:24 GUIDE 6FR XBLAD 3.5 SH catheter (16898704) opened to sterile field. 9:14:32 Procedure started. 9:14:44 Local anesthetic to left femerol artery with Lidocaine 2% by Oni Isabel MD.INITIAL ACCESS ONLY 9:14:55 A 6 Fr Short sheath was inserted into the Left Femoral artery 9:15:19 6 Fr XBLAD 3.5 SH guide catheter was inserted over the wire 9:16:15 Guide Catheter removed. unable to cannulate vessel. 9:16:25 GUIDE 6FR XBLAD 4.0 SH catheter (16407201) opened to sterile field. 9:16:55 6 Fr XBLAD 4 SH guide catheter was inserted over the wire 9:17:09 Heparin Bolus 4000 units I.V. was administered by Bhaskar Bravo RN; for anticoagulation; 9:17:16 Fentanyl 50 mcg I.V. was administered by Bhaskar Bravo RN; for hypokalemia; 9:17:17 Choice PT XS wire advanced. 9:17:20 Versed 1 mg I.V. was administered by Bhaskar Bravo RN; for sedation; 9:17:32 Wire advanced across lesion. 9:18:21 IVUS catheter advanced over wire. 9:18:23 IVUS pass to LAD lesion performed. 9:18:26 IVUS catheter removed over wire. 9:22:50 Place stent Inflation Number: 1 A NICOLETTE RX 3.0 x 12 stent ([id number]) was prepped and advanced across the Mid LAD. The stent was deployed at 17 JOSE for 0:10 (min:sec). 9::44 Wire redirected to DIAG. 9:24:17 Inflation number: 1 The stent balloon was then re-inflated across the 1st Diag to 11 JOSE for 0:10 (min:sec). 9:25:37 Procedure type changed to Cath procedure, Diagnostic procedure, FFR/IVUS, Intra-Coronary IVUS Initial, Sedation Charges, Moderate Sedation up to 15 minutes, PCI procedure, Coronary Stent, Coronary Stent Initial, Coronary Stent Additional 9:26:00 Stent catheter was removed intact over wire. 9::44 Place stent Inflation Number: 2 A NICOLETTE RX 2.5 x 08 stent ([id number]) was prepped and advanced across the 1st Diag. The stent was deployed at 15 JOSE for 0:10 (min:sec). 9:27:59 Stent catheter was removed intact over wire. 9:28:00 Wire removed. 9:28:00 Guide catheter removed. 9:28:03 EXOSEAL 6Fr (EX600) opened to sterile field. 9:28:13 Sheath removed intact; hemostasis achieved with Exoseal to the Left Femoral artery. 9:28:15 Procedure ended.(Physican Out) 9:30:02 Fluoroscopy time 05.10 minutes. 9:30:05 Flurop Dose total: 439 9:30:05 Fluoroscopy dose: 439 mGy 9:30:09 Contrast amount:Isovue 300 74ml. 9:30:11 Sharps counted by scrub and verified by R.N. 9:30:13 Insertion/operative site no bleeding no hematoma. 9:30:17 Post-op/insertion site Left Femoral artery dressed using a 4 x 4 and Tegaderm. 9:30:19 Post Procedure Pulses reassessed and unchanged 9:30:22 Post-procedure physical assessment completed. ASA score P 2 - A patient with mild systemic disease as per Oni Isabel MD. 9:30:25 Post procedure rhythm: unchanged. 9:30:28 Estimated blood loss: 10 ml 9:30:30 Post procedure instruction explained to patient.Patient verbalizes understanding. 9:30:31 Patient needs reinforcement of post procedure teaching. 9:30:48 Procedure and supply charges have been captured, reviewed, submitted and are correct. 9:30:51 Procedure Complication : No complications 9:31:14 See physician's report for complete and final results. 9:31:16 Report given to Pre/Post Procedure Room. 9:31:19 Patient transfered to Pre/Post Procedure Room with Stretcher. 9:31:20 Procedure Stopped 9:31:21 Procedure ended. 9:31:21 Full Disclosure recording stopped 9:32:49 End room use (Document Last) 9:33:13 Vital chart was stopped Intervention Summary Intervention Notes Time ActionType Lesion and Equipment Used Action# Pressure Duration Attributes 9:22:50 Place stent Mid LAD NICOLETTE RX 3.0 x 1 17 00:10 12 stent ([id number]) 9:24:17 Reinflate 1st Diag NICOLETTE RX 3.0 x 1 11 00:10 stent 12 stent balloon ([id number]) 9:26:44 Place stent 1st Diag NICOLETTE RX 2.5 x 2 15 00:10 08 stent ([id number]) Device Usage Item Name Manufacture Quantity Catalog Number Hospital Part Current Minimal Lot# / Charge Number Stock Stock Serial# Code PERCUTANEOUS [employer] 1 [id number] 366277 5 ENTRY 19GA needle Tegaderm 4 x 4 3M 1 1626W 946365 715608 465084 5 (1626W) ACIST Hand Acist 1 44874 930585 328220 328532 5 Control (79060) Medical Systems Inc ACIST Manifold Acist 1 99153 492840 564203 701141 5 (89245) [employer] Inc ACIST Syringe Acist 1 25960 201559 996050 828948 20 (47687) Medical Systems Inc Bag Decanter Microtek 1 2002S 718605 52372 332615 5 (2002S) Medical Inc. Medline Cath Cardinal 1 [id number] 550193 32075 364067 5 [employer] ([id number]) DIAGNOSTIC WIRE St Won 1 403929 660587 455380 591354 30 .035 260cm J wire (177020) INFLATOR Merit Merit 1 TQ8726 780116 030860 756390 15 [employer]azard[employer]mn[employer]upo Leñoso SACV Medical (BI4627) CHOICE PT Extra Flom 1 [id number] 493192 913317 985827 5 Support J 300cm Scientific guide wire (7605947Y7) SHEATH Prelude Merit 1 VXD-2S-78-35 972028 6251832 778532 5 6Fr 0.035 Medical (HIO-3M-41-035) [place] 1 07180P 557386 160428 228859 8 [place] IVUS Catheter (70717Z) GUIDE 6FR XBLAD Cardinal 1 [id number] 046160 640866 542068 3 3.5 catheter Health (70945424) GUIDE 6FR XBLAD Cardinal 1 [id number] 211362 3080 982203 3 4.0 catheter Health (26192348) NICOLETTE RX 3.0 x Medtronic 1 [id number] 399302 3210979 727667 5 [id number] 12 stent ([id number]) NICOLETTE RX 2.5 x Medtronic 1 [id number] 572722 1629110 162640 5 [id number] 08 stent ([id number]) EXOSEAL 6Fr Cardinal 1 EX600 547013 783833 682967 10 (EX600) Health Signature Audit [place] Stage Time Signature Unsigned Intra-Procedure 10/25/2017 Darci Ibrahim 9:33:01 AM RT(R) Signatures Monitor : Darci Ibrahim RT Signature : Date : Time : [place] [address]84[address] [place] [address]
--- NOTE | ~2017-10-24 | HEMODYNAMI ---
PATIENT:DANAE HUA SR MEDICAL RECORD: [id number] : 40 LOCATION:D.CAT ADMISSION DATE: 10/24/17 Generatedon:10/24/201710:41 Patient name: DANAE HUA Patient #: [id number] SSN: : 1940 Date of study: 10/24/2017 Page: Of Hemodynamic Procedure Report Patient Data Patient Demographics Procedure consent was obtained First Name: DANAE Gender: Male Last Name: MELITA Suffix: [facility] Initial: LULÚ : 1940 Patient #: [id number] Age: 77 year(s) Race: Additional ID: [id number] Contact details Address: [address] [place] [address] State: [place] City: [facility] Zip code: [address] Past Medical History History of disease Date Diagnosis Comments Peripheral vascular disease CHF->KNIGHT CAD Hypertension Allergies Allergen Reaction Date Comments Reported Penicillins 10/08/2015 Penicillins 09/22/2016 Penicillins 10/24/2017 Admission Admission Data Admission Date: 10/24/2017 Admission Time: 7:53 Height (in.): 5.9 BSA: 0.34 (m2) Height (cm.): 14.99 BMI: 3716.31 (kg/m2) Weight (lbs.): 184 Weight (kg.): 83.46 Lab Results Lab Result Date: 10/24/2017 Lab Result Time: 0:00 Biochemistry Name Units Result Min Max BUN mg/dl 22 --(----)-* 7 18 Creatinine mg/dl 1.1 --(--*-)-- 0.6 1.3 CBC Name Units Result Min Max Hemoglobin g/dl 13.4 -*(----)-- 13.5 17.5 Procedure Procedure Types Cath Procedure Diagnostic Procedure [facility] w/Coronaries FFR/IVUS Intra-Coronary IVUS Initial PCI Procedure Coronary Stent Coronary Stent Initial Peripheral Cath Diagnostic Procedure Cath Peripheral Ardyc-Cpzybkr-Cpq-Off Procedure Description Procedure Date Procedure Date: 10/24/2017 Procedure Start Time: 10:16 Procedure End Time: 10:38 Procedure Staff Name Function Oni Isabel MD Performing Physician Lona Moreno RN Nurse Mandy Garcia RT Scrub Mc Vega RT Monitor Procedure Data Cath Procedure Fluoroscopy Diagnostic fluoroscopy Total fluoroscopy Time: 4.3 time: 4.3 min min Diagnostic fluoroscopy Total fluoroscopy dose: 970 dose: 970 mGy mGy Contrast Material Contrast Material Type Amount (ml) Isovue 300 119 Entry Location Entry Primary Successful Side Size Upsize Upsize Entry Closure Succes sful Closure Location (Fr) 1 (Fr) 2 (Fr) Remarks Device Remarks Femoral Left 5 Fr 6 Fr Exoseal artery Short Estimated blood loss: 10 ml Diagnostic catheters Device Type Used For End Catheter Placement MULTIPACK Pigtail 5 Fr Procedure catheter MULTIPACK JL 4.0 5Fr Procedure catheter MULTIPACK 3DRC 5Fr Procedure catheter Procedure Complications No complications Procedure Medications Medication Administration Route Dosage Oxygen NC 2 l/min Lidocaine 2% added to field 20 Heparin Flush Bag added to field 2 bags (1000units/500ml NS) 0.9% NaCl I.V. 100 ml/hr Versed I.V. 1 mg Fentanyl I.V. 50 mcg Versed I.V. 1 mg Fentanyl I.V. 50 mcg Heparin Bolus I.V. 4000 units Versed I.V. 1 mg Fentanyl I.V. 50 mcg Integrilin (Bolus I.V. 7.9 ml 2mg/ml) Versed I.V. 1 mg Fentanyl I.V. 50 mcg Plavix P.O. 600 mg Hemodynamics Rest BSA: 0.34 (m2) HGB: 13.4 (g/dl) O2 Consumption: Estimated: 38.97 (ml/min) O2 Con sumption indexed: Estimated:114.62 (ml/min/m) Heart Rate: 70 (bpm) Pressure Samples Time Site Value (mmHg) Purpose Heart Use Rate(bpm) 10:18 LV 133/50,64 Snapshot 73 10:18 LV 141/6,8 Snapshot 73 Snapshots Pre Cath Intra NCS Post Cath Vital Signs Time Heart Resp SPO2 etCO2 NIBP (mmHg) Rhythm Pain Sedation Rate (ipm) (%) (mmHg) Status Level (bpm) 10:03:01 70 10 96 18.8 137/84(117) NSR 0 (11) 10(A) , No pain 10:07:44 71 13 93 30.2 145/81(111) NSR 0 (11) 10(A) , No pain 10:12:27 69 14 95 34.5 144/82(110) NSR 0 (11) 10(A) , No pain 10:17:07 70 13 95 0 145/83(112) NSR 0 (11) 10(A) , No pain 10:21:48 71 11 97 30.7 136/78(105) NSR 0 (11) 10(A) , No pain 10:26:33 71 14 98 36.9 152/77(126) NSR 0 (11) 9(A) , No pain 10:31:13 70 13 98 13.5 138/74(116) NSR 0 (11) 9(A) , No pain 10:36:12 69 13 98 36.2 Measuring NSR 0 (11) 9(A) , No pain 10:36:39 69 14 98 36.9 148/76(120) NSR 0 (11) 10(A) , No pain Medications Time Medication Route Dose Verified Delivered Reason Notes Effectiveness by by 10:01:42 Oxygen NC 2 Oni Buffie used for l/min Chalo Moreno RN procedure 10:01:49 Lidocaine 2% added 20ml Oni Oni for local to vial Chalo Isabel MD anesthetic field 10:01:56 Heparin Flush added 2 Oni Oni used for Bag to bags Chalo Isabel MD procedure (1000units/500ml field NS) 10:02:06 0.9% NaCl I.V. 100 Oni Buffie Per ml/hr Chalo Moreno RN physician 10:14:43 Versed I.V. 1 mg Oni Buffie for sedation Chalo Moreno RN 10:14:49 Fentanyl I.V. 50 Oni Buffie for sedation mcg Chalo Moreno RN 10:18:33 Versed I.V. 1 mg Oni Buffie for sedation Chalo Moreno RN 10:18:37 Fentanyl I.V. 50 Oni Buffie for sedation mcg Chalo Moreno RN 10:24:11 Versed I.V. 1 mg Oni Buffie for sedation Chalo Moreno RN 10:24:14 Fentanyl I.V. 50 Oni Buffie for sedation mcg Chalo Moreno RN 10:26:15 Heparin Bolus I.V. 4000 Oni Zamorano for sedation verified units Chalo Moreno RN with dr isabel 10:28:52 Versed I.V. 1 mg Oni Zamorano for sedation Chalo Moreno RN 10:28:55 Fentanyl I.V. 50 Oni Zamorano for sedation mcg Chalo Moreno RN 10:30:41 Integrilin I.V. 7.9 Oni Zamorano for Wasted (Bolus 2mg/ml) ml Chalo Moreno RN antiplatelet 2.1 ml therapy of vial 10:37:11 Plavix P.O. 600 Oni Zamorano for mg Chalo Moreno RN antiplatelet therapy Procedure Log Time Note 9:24:10 Signed procedure consent form obtained from patient. 9:24:12 Time tracking: Regular hours (M-F 7:00 - 5:00) 9:24:17 Plan of Care:Hemodynamics will remain stable., Cardiac rhythm will remain stable., Comfort level will be maintained., Respiratory function will remain adequate., Patient/ family verbilizes understanding of procedure., Procedure tolerated without complication., Recovers from procedure without complications.. 9:24:32 H&P Date Dictated: 10/19/2017 Within 30 days and on chart., H&P Addendum completed by physician on day of procedure. (MUST COMPLETE FOR ALL OUTPATIENTS). 9:24:53 Lab Result : BUN 22 mg/dl 9:24:53 Lab Result : Creatinine 1.1 mg/dl 9:24:53 Lab Result : Hemoglobin 13.4 g/dl 9:25:02 Patient allergic to Penicillins 9:28:04 Patient Height : 5.9 inches 9:28:08 Patient Weight : 184 lbs 9:38:50 Mandy Garcia RT(R) sent for patient. Start room use. 9:45:05 Patient received from Pre/Post Procedure Room to CCL 1 Alert and oriented. Tansferred to table in Supine position. 9:45:06 Warm blankets applied, and umberto hugger turned on for patient comfort. 9:45:06 Correct patient and procedure confirmed by team. 9:45:07 ECG and BP/O2 sat monitors applied to patient. 9:45:08 Pre-procedure instructions explained to patient. 9:45:09 Pre-op teaching completed and patient verbalized understanding. 9:45:10 Family in waiting room. 9:45:11 Patient NPO since Midnight. 9:45:16 Is the patient allergic to Iodine/contrast media? No. 9:57:59 Is patient on blood thinner?No 9:58:00 Patient diabetic? No. 9:58:04 Previous problem with sedation/anesthesia? No ? 9:58:05 Snore? No 9:58:06 Sleep apnea? No 9:58:08 Deviated septum? No 9:58:09 Opens mouth fully? Yes 9:58:11 Sticks out tongue? Yes 9:58:14 Airway obstruction? Yes copd 9:58:22 Dentures? No Lost teeth 10:01:42 Oxygen 2 l/min NC was administered by Lona Moreno RN; used for procedure; 10:01:49 Lidocaine 2% 20ml vial added to field was administered by Oni Isabel MD; for local anesthetic; 10:01:56 Heparin Flush Bag (1000units/500ml NS) 2 bags added to field was administered by Oni Isabel MD; used for procedure; 10:02:06 0.9% NaCl 100 ml/hr I.V. was administered by Lona Moreno RN; Per physician; 10:02:11 Vital chart was started 10:02:12 Pre procedure: right dorsailis pedis pulse Doppler 10:02:15 Pre procedure: left dorsailis pedis pulse Doppler 10:02:17 Patient pain scale 0/10 ?. 10:02:28 IV patent on arrival in left antecubital with 0.9% NaCl at [facility]. 10:02:30 Lab results completed and on chart. 10:02:38 Bilateral groins area was prepped with chlora-prep and draped in sterile fashion 10:02:39 Alarms reviewed by R. N. 10:02:39 Sharps counted by scrub and verified by R.N. 10:02:41 Use device set Femoral Dx 10:02:43 ACIST Syringe (08438) opened to sterile field. 10:02:43 Bag Decanter () opened to sterile field. 10:02:43 Medline Cath Pack ([id number]) opened to sterile field. 10:02:46 ACIST Hand Control (82353) opened to sterile field. 10:02:47 ACIST Manifold (88360) opened to sterile field. 10:02:48 Tegaderm 4 x 4 (1626W) opened to sterile field. 10:02:48 PERCUTANEOUS ENTRY 19GA needle opened to sterile field. 10:02:50 DIAGNOSTIC Multipack 5Fr catheter set (DR7961) opened to sterile field. 10:02:51 DIAGNOSTIC WIRE .035 260cm J wire (278418) opened to sterile field. 10:02:53 SHEATH Prelude 5Fr 0.035 (JDW-5Q-34-035) opened to sterile field. 10::57 Baseline sample Acquired. 10:03:04 Rhythm: paced 10:03:06 Full Disclosure recording started 10:04:29 Baseline sample Acquired. 10:12:52 Physician arrived 10::53 --------ALL STOP TIME OUT------ ::53 Final Timeout: patient, procedure, and site verified with staff and physician. All members of the team are in agreement. 10:12:55 Bilateral groins site verified by team. 10::57 Physical assessment completed. ASA score P 2 - A patient with mild systemic disease as per Oni Isabel MD. 10:12:59 Sedation plan: IV Moderate Sedation Medication:Versed, Fentanyl 10:14:43 Versed 1 mg I.V. was administered by Lona Moreno RN; for sedation; 10:14:49 Fentanyl 50 mcg I.V. was administered by Lona Moreno RN; for sedation; 10:16:50 Procedure started. 10:16:54 Local anesthetic to left femerol artery with Lidocaine 2% by Oni Isabel MD.INITIAL ACCESS ONLY 10:17:12 Zero performed for pressure channel P1 10:17:43 A 5 Fr sheath was inserted into the Left Femoral artery 10:18:23 A MULTIPACK Pigtail 5 Fr catheter was advanced over the wire and used for Procedure. 10:18:33 Versed 1 mg I.V. was administered by Lona Moreno RN; for sedation; 10:18:37 Fentanyl 50 mcg I.V. was administered by Lona Moreno RN; for sedation; 10:19:01 LV gram done using ALMEIDA 10:19:03 Injector settings: Ml/sec: 10, Volume: 20, 10:19:09 EF : 60 % 10::53 Abdominal angiogram w/ runoff was performed. 10:19:59 Left leg runoff performed. 10:19:59 Right leg runoff performed. 10:20:53 Catheter exchanged over wire. 10:20:58 A MULTIPACK JL 4.0 5Fr catheter was advanced over the wire and used for Procedure. 10:21:40 LCA angiography performed. 10:22:15 Catheter exchanged over wire. 10:22:19 A MULTIPACK 3DRC 5Fr catheter was advanced over the wire and used for Procedure. 10:23:32 CHOICE PT Extra Support 182cm wire ([id number]) opened to sterile field. 10:23:32 SHEATH Prelude 6Fr 0.035 (ULY-5D-38-035) opened to sterile field. 10:23:33 INFLATOR Merit BasixCompak (WP0519) opened to sterile field. 10:23:41 RCA angiography performed. 10:24:11 Versed 1 mg I.V. was administered by Lona Moreno RN; for sedation; 10:24:14 Fentanyl 50 mcg I.V. was administered by Lona Moreno RN; for sedation; 10:24:22 Catheter removed. 10:24:45 Sheath upsized to a 6 Fr Short. 10:25:04 [place] IVUS Catheter (54614P) opened to sterile field. 10:25:58 GUIDE 6FR XB 4.0 catheter ([id number]) opened to sterile field. 10:26:03 6 Fr xb4 guide catheter was inserted over the wire 10:26:11 choice pt wire advanced. 10:26:15 Heparin Bolus 4000 units I.V. was administered by Lona Moreno RN; for sedation; verified with dr isabel 10:26:28 Wire advanced across lesion. 10:26:34 IVUS catheter advanced over wire. 10:27:05 IVUS pass to Circ lesion performed. 10:28:52 Versed 1 mg I.V. was administered by Lona Moreno RN; for sedation; 10::55 Fentanyl 50 mcg I.V. was administered by Lona Moreno RN; for sedation; 10:30:41 Integrilin (Bolus 2mg/ml) 7.9 ml I.V. was administered by Lona Moreno RN; for antiplatelet therapy; Wasted 2.1 ml of vial 10:30:42 IVUS catheter removed over wire. 10:31:28 Place stent Inflation Number: 1 A NICOLETTE RX 3.5 x 15 stent ([id number]) was prepped and advanced across the Mid CX. The stent was deployed at 17 JOSE for 0:10 (min:sec). 10:31:37 Inflation number: 2 The stent balloon was then re-inflated across the Mid CX to 17 JOSE for 0:10 (min:sec). 10:32:44 Stent catheter was removed intact over wire. 10:32:45 Wire removed. 10:32:45 Guide catheter removed. 10:32:51 EXOSEAL 6Fr (EX600) opened to sterile field. 10:32:58 Sheath removed intact; hemostasis achieved with Exoseal to the Left Femoral artery. 10:32:59 Procedure ended.(Physican Out) 10:35:06 Fluoroscopy time 04.30 minutes. 10:35:09 Flurop Dose total: 970 10:35:09 Fluoroscopy dose: 970 mGy 10:35:12 Contrast amount:Isovue 300 119ml. 10:35:14 Sharps counted by scrub and verified by R.N. 10:35:14 Insertion/operative site no bleeding no hematoma. 10:35:17 Post-op/insertion site Left Femoral artery dressed using a 4 x 4 and Tegaderm. 10:35:22 Post left femerol artery:stable, soft, clean and dry 10:35:35 Post Procedure Pulses reassessed and unchanged 10:35:38 Post-procedure physical assessment completed. ASA score P 2 - A patient with mild systemic disease as per Oni Isabel MD. 10:35:40 Post procedure rhythm: unchanged. 10:35:42 Estimated blood loss: 10 ml 10:35:44 Post procedure instruction explained to patient.Patient verbalizes understanding. 10:35:44 Patient needs reinforcement of post procedure teaching. 10:36:00 Procedure type changed to Cath procedure, Diagnostic procedure, LHC, LHC w/Coronaries, FFR/IVUS, Intra-Coronary IVUS Initial, PCI procedure, Coronary Stent, Coronary Stent Initial, Peripheral Cath Diagnostic Procedure, Cath Peripheral, Qvukl-Hrovkje-Vvy-Off 10:36:38 Procedure and supply charges have been captured, reviewed, submitted and are correct. 10:36:40 Procedure Complication : No complications 10:36:42 Vital chart was stopped 10:36:43 See physician's report for complete and final results. 10:36:45 Report given to Pre/Post Procedure Room. 10:36:48 Patient transfered to Pre/Post Procedure Room with Stretcher. 10:37:11 Plavix 600 mg P.O. was administered by Lona Moreno RN; for antiplatelet therapy; 10:38:51 Procedure ended. 10:38:51 Full Disclosure recording stopped 10:38:55 End room use (Document Last) Intervention Summary Intervention Notes Time ActionType Lesion and Equipment Used Action# Pressure Duration Attributes 10:31:28 Place stent Mid CX NICOLETTE RX 3.5 x 1 17 00:10 15 stent ([id number]) 10:31:37 Reinflate Mid CX NICOLETTE RX 3.5 x 2 17 00:10 stent 15 stent balloon ([id number]) Device Usage Item Name Manufacture Quantity Catalog Number Hospital Part Current Minimal Lot# / Charge Number Stock Stock Serial# Code ACIST Syringe Acist 1 32140 980736 703181 [id number] 20 (85201) Medical Systems AdelaVoice Bag Decanter Microtek 1 2001S 103152 07585 884187 5 (2001S) Medical Inc. Medline Cath Cardinal 1 [id number] 375226 37549 462397 5 Pack Health ([id number]) ACIST Hand Acist 1 34921 195327 691461 418112 5 Control (76158) Medical Systems AdelaVoice ACIST Manifold Acist 1 50405 929680 179819 705190 5 (71061) Medical Systems Inc Tegaderm 4 x 4 3M 1 1626W 929210 362984 374919 5 (1626W) PERCUTANEOUS Cook Medical 1 C86091 617933 807986 5 ENTRY 19GA needle DIAGNOSTIC Cardinal 1 GM1217 336673 00154 290801 30 Multipack 5Fr Health catheter set (AC8972) DIAGNOSTIC WIRE St Won 1 797135 668022 302921 175691 30 .035 260cm J wire (827880) SHEATH Prelude Merit 1 NWK-9V-95-035 102748 564234 403671 5 5Fr 0.035 Medical (DDC-8J-15-035) MULTIPACK Cardinal 1 934861 5 Pigtail 5 Fr Health catheter MULTIPACK JL Cardinal 1 035220 5 4.0 5Fr Health catheter MULTIPACK 3DRC Cardinal 1 057340 5 5Fr catheter Health CHOICE PT Extra [place] 1 [id number] 645158 527042 859842 5 Support 182cm Scientific wire ([id number]) SHEATH Prelude Merit 1 HVW-5Y-56-35 478620 2089894 564961 5 6Fr 0.035 Medical (ZYJ-2O-49-035) INFLATOR Merit Merit 1 HW8602 103688 912251 652435 15 BasixCompak Medical (YJ7486) [place] 1 99754C 938501 942977 557765 8 [place] IVUS Catheter (82948C) GUIDE 6FR XB Cardinal 1 [id number] 926077 048173 859850 2 4.0 catheter Health (60503748) NICOLETTE RX 3.5 x Medtronic 1 [id number] 519054 8309603 857537 5 [id number] 15 stent ([id number]) EXOSEAL 6Fr Cardinal 1 EX600 338844 014271 292926 10 (EX600) Health Signature Audit Mobile Stage Time Signature Unsigned Intra-Procedure 10/24/2017 Mc Vega 10:41:01 AM RT(R) Signatures Monitor : Mc Vega RT Signature : Date : Time : [facility] [address] [place] [address]
--- NOTE | ~2017-10-24 | OP ---
PATIENT NAME: DANAE HUA SR MEDICAL RECORD: [id number] :40 LOCATION:D.CAT ADMISSION DATE: SURGEON: MADHURI MELÉNDEZ MD DATE OF OPERATION: 10/24/2017 PROCEDURES: 1. Aortofemoral runoff. 2. Abdominal aortography. INDICATION: Claudication and peripheral vascular disease. PROCEDURE IN DETAIL: After informed consent was obtained and after a detailed description of risks, benefits as well as alternative therapies, the patient elected to proceed with angiogram and aortofemoral runoff. The left femoral area was prepped and draped in normal sterile fashion. Left femoral artery was cannulated via modified Seldinger technique with placement of 6-Kazakh sheath. All catheters exchanged through this sheath. FINDINGS: The abdominal aortography was performed. The catheter was pulled down for aortofemoral runoff. Abdominal angiography reveals no significant abdominal aortic disease, no dissection or aneurysm formation. RIGHT LEG: A. Iliac: The common internal and external iliacs have moderate irregularities, but no flow-limiting stenosis. B. Femoral system: The common and deep femoral are widely patent. Superficial femoral has multiple previously placed stents. These are patent with no significant restenosis. Moderate irregularities else [place] throughout the femoral system. C. Popliteal and infrapopliteal system: The popliteal is widely patent. Infrapopliteal vessels are diffusely diseased. The anterior tibial is totally occluded. There is 2-vessel runoff through the posterior tibial and peroneal although diffusely diseased. LEFT LEG: A. Iliac: The common internal and external iliacs have moderate irregularities, but no flow-limiting stenosis. B. Femoral system: The common and deep femoral are widely patent. Superficial femoral was totally occluded throughout the entire proximal to mid course. Distal superficial femoral fills via collaterals off the deep system. This is widely patent. These are very large collaterals with excellent flow. Previously placed stents below this are widely patent. C. Popliteal and infrapopliteal vessels: The popliteal is widely patent and the anterior tibial is totally occluded. There is 2-vessel runoff through the peroneal and popliteal. OVERALL IMPRESSION: Wide patency of the previously placed stents. Excellent collateralization on the left SFA with previously placed stents widely patent. Continue medical management of the peripheral vascular disease. TRANSINT:[id number] Voice Confirmation ID: [id number] DOCUMENT ID: [id number] OPERATIVE REPORT [id number] MELITADANAE RODRIGUES SR, JEFFREY MD at 1006 CC: [id number] DICTATION DATE: 10/24/17 1045 ACCOUNT SERVICE REPRESENTATIVE: 10/24/17 1137 DEP CLI 10/25/17 [place] [address] [place] [address]
--- NOTE | ~2017-10-24 | OP ---
PATIENT NAME: DANAE HUA SR MEDICAL RECORD: [id number] :40 LOCATION:D.CAT ADMISSION DATE: SURGEON: MADHURI MELÉNDEZ MD DATE OF OPERATION: 10/24/2017 PROCEDURES: 1. PTCA stent left circumflex. 2. Left heart catheterization. 3. Selective angiography. 4. Left ventriculogram. 5. Intravascular ultrasound. INDICATION: Angina and coronary artery disease. PROCEDURE IN DETAIL: After informed consent was obtained and after a detailed description of risks, benefits as well as alternative therapies, the patient elected to proceed with angiogram and angioplasty. The left femoral area had a preexisting sheath from aortofemoral runoff. All catheters exchanged through this sheath. FINDINGS: Left ventriculogram was performed in standard 30-degree ALMEIDA view, reveals preserved cardiac wall motion, ejection fraction 55% to 60%. SELECTIVE CORONARY ANGIOGRAPHY: 1. Left main is with no significant angiographic disease. 2. Left anterior descending has a 70+ percent stenosis in the mid vessel. The diagonal has 80+ percent stenosis. 3. The left circumflex has a greater than 70% stenosis in the mid vessel confirmed by intravascular ultrasound. 4. Right coronary artery has moderate irregularities, but no flow-limiting stenosis. PTCA STENT OF THE LEFT CIRCUMFLEX: The stent used was 3.5 x 15 mm [place]. Result was 0% residual stenosis. OVERALL IMPRESSION: Successful percutaneous transluminal coronary angioplasty stent of the left circumflex going from 70% to 80% initial stenosis to 0% residual. PLAN: For EXPERIMENTAL PSYCHOLOGIST stent of the LAD in the near future. TRANSINT:[id number] Voice Confirmation ID: [id number] DOCUMENT ID: [id number] MADHURI MELÉNDEZ MD at 1006 CC: [id number] DICTATION DATE: 10/24/17 1045 POLICE CHIEF DEPUTY: 10/24/17 1136 DEP CLI 10/25/17 [place] [id number] [place] [id number]
[2017-10-24 08:38] VITALS: BP 139/89; BMI 29.1
[2017-10-24 08:41] LABS: BASOPHILS 0.2 % (0-2); HEMOGLOBIN 13.4 g/dL (13.5-17.5); IMMATURE GRANULOCYTES 0.3 % (0-5); LYMPHOCYTES 26.3 % (15-50); MCH 30.5 pg (26.0-34.0); MCHC 33.5 g/dL (31.0-37.0); MCV 90.9 fL (80.0-100.0); MEAN PLATELET VOLUME 10.8 fL (7.4-10.4); MONOCYTES 9.3 % (2-11); NEUTROPHILS 60.9 % (40-80); PLATELET COUNT 219 10x3/uL (130-400); RDW 15.1 % (11.5-14.5); WBC 8.6 10x3/uL (4.8-10.8)
[2017-10-24 08:54] LABS: ANION GAP 13.5 mmol/L (8-16); CALCIUM 8.9 mg/dL (8.5-10.1); CARBON DIOXIDE 25.9 mmol/L (21.0-32.0); CREATININE - SERUM 1.1 mg/dL (0.6-1.3); POTASSIUM - SERUM 4.4 mmol/L (3.5-5.1)
[2017-10-24 13:45] VITALS: BP 134/94; Ht 175.3 cm; Wt 87.0 kg
[2017-10-24 15:17] VITALS: BP 134/94
[2017-10-24 20:49] VITALS: BP 130/85
[2017-10-25 01:03] VITALS: BP 120/76
[2017-10-25 05:01] VITALS: BP 132/74
== END 2017-10-25 13:40 | disposition home or self-care (01) ==
LOC: D.CATH 07:53 → D.M2 07:53 → D.CATH 10:00 → D.M2 13:30 → D.CLR 10-25 09:41 → D.CATH 10-25 13:40
PROVIDERS: Internal Medicine Interventional Cardiology
DX: I25.119 Atherosclerotic heart disease of native coronary artery with unspecified angina pectoris (principal); T82.855A Stenosis of coronary artery stent, initial encounter; I70.213 Atherosclerosis of native arteries of extremities with intermittent claudication, bilateral legs; I10 Essential (primary) hypertension; E78.5 Hyperlipidemia, unspecified; Z01.812 Encounter for preprocedural laboratory examination
CPT/HCPCS: 93458; 92978 ×2; C9600 ×2; C9601

== ENCOUNTER → 2017-11-02 09:19 | Outpatient (CLI) | payer MEDICARE, MEDICAID ==
[2017-10-24 13:45] VITALS: BMI 27.3
== END | disposition home or self-care (01) ==
LOC: D.CT 09:00
DX: R91.1 Solitary pulmonary nodule (principal)

== ENCOUNTER 2018-03-09 08:00 | Outpatient (CLI) | payer MEDICARE, MEDICAID ==
[2018-03-09] MEDS ORDERED: SUDAFED 30 MG T30 MG (08:18)
[2018-03-09] MEDS ORDERED: [UNRECOGNIZED DRUG - OTHER] (08:27)
[2018-03-09] MEDS ORDERED: ALKA SELTZER COLD (08:27)
[2018-03-14 09:49] VITALS: BMI 26.2
== END 2018-03-09 08:01 | disposition home or self-care (01) ==
LOC: D.OPS 08:00
DX: R91.1 Solitary pulmonary nodule (principal); Z53.9 Procedure and treatment not carried out, unspecified reason

== ENCOUNTER 2018-03-14 08:07 | Outpatient (CLI) | payer MEDICARE, MEDICAID ==
[2018-03-09 07:59] LABS: BASOPHILS 0.4 % (0-2); EOSINOPHILS 2.2 % (0-7); HEMATOCRIT 35.3 % (42.0-54.0); HEMOGLOBIN 11.7 g/dL (13.5-17.5); IMMATURE GRANULOCYTES 0.2 % (0-5); LYMPHOCYTES 24.7 % (15-50); MCH 29.6 pg (26.0-34.0); MCHC 33.1 g/dL (31.0-37.0); MCV 89.4 fL (80.0-100.0); NEUTROPHILS 62.5 % (40-80); PLATELET COUNT 216 10x3/uL (130-400); RBC 3.95 10x6/uL (4.20-6.10); RDW 15.9 % (11.5-14.5); WBC 8.3 10x3/uL (4.8-10.8)
[2018-03-09 08:08] LABS: INR 1.03 (0.85-1.17); PROTIME 13.1 SECONDS (11.6-15.0)
[2018-03-09 08:09] LABS: APTT 28.3 SECONDS (22.8-39.4)
[2018-03-09 08:22] LABS: CALCIUM 8.8 mg/dL (8.5-10.1); CARBON DIOXIDE 26.6 mmol/L (21.0-32.0); CREATININE - SERUM 1.2 mg/dL (0.6-1.3); POTASSIUM - SERUM 4.6 mmol/L (3.5-5.1)
[2018-03-09 08:40] VITALS: BP 149/80; BMI 26.2
[~2018-03-14] VITALS: Ht 175.3 cm; Wt 80.5 kg
[~2018-03-14 08:07] MED LIST changes: +ALKA SELTZER COLD; +SUDAFED 30 MG T30 MG; +[UNRECOGNIZED DRUG - OTHER]
[2018-03-14 09:49] VITALS: BP 136/78; Ht 175.3 cm; Wt 80.5 kg
== END 2018-03-14 14:00 ==
LOC: D.SP 08:07
PROVIDERS: Specialist
DX: R91.1 Solitary pulmonary nodule (principal); Z01.810 Encounter for preprocedural cardiovascular examination; Z01.811 Encounter for preprocedural respiratory examination; Z01.812 Encounter for preprocedural laboratory examination

== ENCOUNTER 2018-04-07 10:45 | Inpatient (IN) | payer MEDICARE, MEDICAID ==
[~2018-04-07] VITALS: Ht 175.3 cm; Wt 77.6 kg
--- NOTE | ~2018-04-07 | MORECARE ---
CASE MANAGEMENT DISCHARGE SUMMARY PATIENT: DANAE HUA UNIT: [id number] ADM DATE: 04/07/18 AGE: 77 : [birth year] SEX: M ROOM/BED: D.2226 AUTHOR: HEVER CAMPO PHYSICIAN: REFERRING PHYSICIAN: KATHARINA GONZALES DO DATE OF SERVICE: 04/10/18 Discharge Plan Patient Name: DANAE HUA Facility: [facility]:[place] : 1940 Planned Disposition: Home Anticipated Discharge Date: Discharge Date: Expected LOS: Initial Reviewer: [email or web address] Initial Review Date: 04/10/2018 Generated: 04/10/18 10:56 am Comments DCP- Discharge Planning Updated by [email or web address]: Yulia Reece on 04/10/18 8:[address] Patient Name: DANAE HUA Admission Status: Elective Accout number: [id number] Admission Date: 04-07-2018 : 1940 Admission Diagnosis: Attending: KATHARINA GONZALES Current LOS: 3 Anticipated DC Date: Planned Disposition: Home Primary Insurance: [facility] [employer] Discharge Planning Comments: CM SPOKE WITH PATIENT ABOUT DC PLANNING/NEEDS. STATES TO DC TO HOME WITH TODAY OR TOMORROW. STATES HAS NUBULIZER MACHINE AT HOME. STATES NO NEEDS. CM WILL FOLLOW AND ASSIST NEEDED WITH DC PLANNING/NEEDS. IMM SIGNED. Inside B2B Sales: Yulia Reece DCPIA - Discharge Planning Initial Assessment Updated by [email or web address]: Yulia Reece on 04/10/18 9:52 am * Is the patient Alert and Oriented? Yes * PCP LAUREN * Pharmacy [facility] [address] * Preadmission Environment Home with Family * ADLs Independent * Equipment Nebulizer * List name and contact numbers for known caregivers / representatives who currently or will assist patient after discharge: KETTY, , * Community resources currently utilized None * Additional services required to return to the preadmission environment? No * Can the patient safely return to the preadmission environment? Yes * Has this patient been hospitalized within the prior 30 days at any hospital? No Coverage Notice Reviewer: [email or web address] - Yulia Reece Notice Issued Date-Time: 04/10/2018 9:54 Notice Type: IM Discharge Notice Notice Delivered To: Patient Relationship to Patient: Self Television And Radio Repairer Name: Delivery Method: HAND - Hand Delivered Pooja Days: Prior Verbal Notification: Recipient Understood Notice: Yes Recipient Signature: Yes Med Rec Note Co-signed by Attending: Coverage Notice Comment: Patient Name: DANAE HUA Page [phone] at 0956 All edits/amendments must be made on the electronic document DICTATION DATE: 04/10/18955 CENTRAL SUPPLY SUPERVISOR: GARCIA 04/10/18955 RPT#: [id number] DC DATE: STATUS: ADM IN [facility] [address] [place] [address] END OF REPORT
--- NOTE | ~2018-04-07 | MORECARE ---
CASE MANAGEMENT DISCHARGE SUMMARY PATIENT: DANAE HUA UNIT: [id number] ADM DATE: 04/07/18 AGE: 77 : 40 SEX: M ROOM/BED: D.2226 AUTHOR: HEVER CAMPO PHYSICIAN: REFERRING PHYSICIAN: KATHARINA GONZALES DO DATE OF SERVICE: 04/11/18 Discharge Plan Patient Name: DANAE HUA Facility: [facility]:[place] : 1940 Planned Disposition: Home Anticipated Discharge Date: Discharge Date: Expected LOS: Initial Reviewer: [id number] Initial Review Date: 04/10/2018 Generated: 04/11/18 1:13 pm Comments DCP- Discharge Planning Updated by [email or web address]: Yulia Reece on 04/11/18 11:[address] Patient Name: DANAE HUA Encounter No: [id number] : 1940 Primary Insurance: [facility] MEDICARE SOLUTIONS Anticipated DC Date: Planned Disposition: Home External Planned Provider: : DCP follow-up note: Patient and family in agreement with discharge plan. No changes to plan. Case management will follow and assist as needed. IMM HAS BEEN SERVED. Yulia Reece DCP- Discharge Planning Updated by [id number]: Yulia Reece on 04/10/18 8:[address] Patient Name: DANAE HUA Admission Status: Elective Accout number: [id number] Admission Date: 04-07-2018 : 1940 Admission Diagnosis: Attending: KATHARINA GONZALES Current LOS: 3 Anticipated DC Date: Planned Disposition: Home Primary Insurance: [employer] MEDICARE SOLUTIONS Discharge Planning Comments: CM SPOKE WITH PATIENT ABOUT DC PLANNING/NEEDS. STATES TO DC TO HOME WITH TODAY OR TOMORROW. STATES HAS NUBULIZER MACHINE AT HOME. STATES NO NEEDS. CM WILL FOLLOW AND ASSIST NEEDED WITH DC PLANNING/NEEDS. IMM SIGNED. Incident Response Specialist: Yulia Reece DCPIA - Discharge Planning Initial Assessment Updated by [email or web address]: Yulia Reece on 04/10/18 9:52 am * Is the patient Alert and Oriented? Yes * PCP HAGNRO * Pharmacy [facility] [address] * Preadmission Environment Home with Family * ADLs Independent * Equipment Nebulizer * List name and contact numbers for known caregivers / representatives who currently or will assist patient after discharge: KETTY, MALIA, * Community resources currently utilized None * Additional services required to return to the preadmission environment? No * Can the patient safely return to the preadmission environment? Yes * Has this patient been hospitalized within the prior 30 days at any hospital? 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
--- NOTE | ~2018-04-07 | CN ---
PATIENT NAME:DANAE SUAZO MEDICAL RECORD: [id number] : 40 LOCATION:D.MS [address]26 ADMIT DATE: 04/07/18 ACCOUNT: [id number] CONSULTING PHYSICIAN: MADHURI MELÉNDEZ MD REFERRING PHYSICIAN: KATHARINA GONZALES DO DATE OF CONSULTATION: 04/10/2018 DIAGNOSES: 1. Paroxysmal atrial fibrillation. 2. Sick sinus syndrome. 3. Status post pacemaker. 4. Shortness of breath, dyspnea on exertion. 5. Coronary artery disease. 6. Previous PTCA stent. 7. COPD. 8. Hyperlipidemia. HISTORY OF PRESENT ILLNESS: Mr. Suazo presents with shortness of breath, dyspnea on exertion, found to be in and out of atrial fibrillation, pacemaker was interrogated. He does have paroxysmal atrial fibrillation. His atrial fibrillation burden is approximately 9.3%. He is on amiodarone 200 mg b.i.d. He did not tolerate sotalol secondary to the beta blockade affect. He is on no other AV blocking medications. His systolic blood pressure is approximately 100. PHYSICAL EXAMINATION: GENERAL APPEARANCE: Well-nourished, well-developed, appears stated age. Level of distress, comfortable. PSYCHIATRIC: Mental status, alert, normal affect. Orientation, oriented to time, place and person. EYES: Lids and conjunctiva, noninjected. No discharge, no pallor. ENT: Lips, teeth, gums, normal dentition. Oropharynx, no cyanosis, no pallor. NECK: Carotid arteries, bilateral normal upstroke, no bruits, no thrills. JUGULAR VEINS: No jugular venous pressure or distention. CERVICAL LYMPH NODES: Nontender, nonenlarged. THYROID: Not enlarged. Nontender. No nodules. LUNGS: Respiratory effort, unlabored. CHEST: Normal curvature. No thoracic deformity. No chest wall tenderness. Percussion, resonant. Auscultation, clear. No wheezes, no rales, no rhonchi. CARDIOVASCULAR: Precordial exam, nondisplaced. No heaves or pericardial thrills. Rate and rhythm, regular. Heart sounds, normal S1, normal S2. No S3, no gallop, no rub. Systolic murmur, not heard. Diastolic murmur, not heard. EXTREMITIES: No cyanosis, no edema. Peripheral pulses, full and equal in all extremities, except as noted. No bruits appreciated. ABDOMEN: Soft, nondistended. Normal aorta. No bruit. Nontender. No masses. Liver, nontender, no hepatomegaly. Spleen, nontender, no splenomegaly. MUSCULOSKELETAL: No joint tenderness. No joint swelling. No erythema. NEUROLOGICAL: Normal gait, normal strength, normal tone. SKIN: Warm and dry. OVERALL IMPRESSION: Paroxysmal atrial fibrillation. At this time, really the only agent we can add is digoxin due to his low blood pressure and clearly bradycardias is not of concern secondary to the pacemaker. We will add digoxin on a daily basis and I hope this will decrease his atrial fibrillation burden. CONSULT REPORT [id number] DANAE SUAZO SR TRANSINT:[id number] Voice Confirmation ID: [id number] DOCUMENT ID: [id number] MADHURI MELÉNDEZ MD at 0924 CC: [id number] DICTATION DATE: 04/10/18 1031 DELIVERY DEPARTMENT SUPERVISOR: 04/10/18 1219 DIS IN 04/11/18 [address] [place] [address]
--- NOTE | ~2018-04-07 | MORECARE ---
CASE MANAGEMENT DISCHARGE SUMMARY PATIENT: DANAE HUA UNIT: [id number] ADM DATE: 04/07/18 AGE: 77 : 40 SEX: M ROOM/BED: D.2226 AUTHOR: HEVER CAMPO PHYSICIAN: REFERRING PHYSICIAN: KATHARINA GONZALES DO DATE OF SERVICE: 04/17/18 Discharge Plan Patient Name: DANAE HUA Facility: [facility]:[place] : 1940 Planned Disposition: Home Anticipated Discharge Date: Discharge Date: 04/11/2018 Expected LOS: Initial Reviewer: [id number] Initial Review Date: 04/10/2018 Generated: 04/17/18 9:21 am Comments DCP- Discharge Planning Updated by [id number]: Yulia Reece on 04/11/18 11:[address] Patient Name: DANAE HUA Encounter No: [id number] : 1940 Primary Insurance: [facility] MEDICARE SOLUTIONS Anticipated DC Date: Planned Disposition: Home External Planned Provider: : DCP follow-up note: Patient and family in agreement with discharge plan. No changes to plan. Case management will follow and assist as needed. IMM HAS BEEN SERVED. Yulia Reece DCP- Discharge Planning Updated by [email or web address]: Yulia Reece on 04/10/18 8:[address] Patient Name: DANAE HUA Admission Status: Elective Accout number: [id number] Admission Date: 04-07-2018 : 1940 Admission Diagnosis: Attending: KATHARINA GONZALES Current LOS: 3 Anticipated DC Date: Planned Disposition: Home Primary Insurance: [employer] SOLUTIONS Discharge Planning Comments: CM SPOKE WITH PATIENT ABOUT DC PLANNING/NEEDS. STATES TO DC TO HOME WITH TODAY OR TOMORROW. STATES HAS NUBULIZER MACHINE AT HOME. STATES NO NEEDS. CM WILL FOLLOW AND ASSIST NEEDED WITH DC PLANNING/NEEDS. IMM SIGNED. Room Attendant: Yulia Reece DCPIA - Discharge Planning Initial Assessment Updated by [email or web address]: Yulia Reece on 04/10/18 9:52 am * Is the patient Alert and Oriented? Yes * PCP HANGRO * Pharmacy [facility] [address] * Preadmission Environment Home with Family * ADLs Independent * Equipment Nebulizer * List name and contact numbers for known caregivers / representatives who currently or will assist patient after discharge: KETTY, MALIA, * Community resources currently utilized None * Additional services required to return to the preadmission environment? No * Can the patient safely return to the preadmission environment? Yes * Has this patient been hospitalized within the prior 30 days at any hospital? 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
[2018-04-07 17:15] LABS: BASOPHILS 0.1 % (0-2); EOSINOPHILS 0.7 % (0-7); HEMATOCRIT 38.1 % (42.0-54.0); HEMOGLOBIN 12.7 g/dL (13.5-17.5); IMMATURE GRANULOCYTES 0.7 % (0-5); LYMPHOCYTES 20.8 % (15-50); MCH 29.2 pg (26.0-34.0); MCHC 33.3 g/dL (31.0-37.0); MCV 87.6 fL (80.0-100.0); MEAN PLATELET VOLUME 9.8 fL (7.4-10.4); MONOCYTES 8.7 % (2-11); PLATELET COUNT 224 10x3/uL (130-400); RBC 4.35 10x6/uL (4.20-6.10); WBC 10.5 10x3/uL (4.8-10.8)
[2018-04-07 17:35] LABS: ALBUMIN 2.9 g/dL (3.4-5.0); ANION GAP 14.1 mmol/L (8-16); BILIRUBIN - TOTAL 0.41 mg/dL (0.2-1.3); CALCIUM 8.2 mg/dL (8.5-10.1); CARBON DIOXIDE 27.1 mmol/L (21.0-32.0); CREATININE - SERUM 1.2 mg/dL (0.6-1.3); MAGNESIUM - SERUM 2.1 mg/dL (1.8-2.4); POTASSIUM - SERUM 4.2 mmol/L (3.5-5.1); PROTEIN - SERUM 6.2 g/dL (6.4-8.2)
[2018-04-07 17:53] VITALS: BP 141/80; BMI 25.3
[2018-04-07 20:56] VITALS: BP 112/58
[2018-04-08 00:51] VITALS: BP 117/71
[2018-04-08 05:09] VITALS: BP 118/73
[2018-04-08 06:22] LABS: BASOPHILS 0 % (0-2); EOSINOPHILS 0 % (0-7); HEMATOCRIT 35.4 % (42.0-54.0); HEMOGLOBIN 11.7 g/dL (13.5-17.5); IMMATURE GRANULOCYTES 0.5 % (0-5); LYMPHOCYTES 8.1 % (15-50); MCH 28.7 pg (26.0-34.0); MCHC 33.1 g/dL (31.0-37.0); MCV 86.8 fL (80.0-100.0); MONOCYTES 1.7 % (2-11); NEUTROPHILS 89.7 % (40-80); PLATELET COUNT 209 10x3/uL (130-400); RBC 4.08 10x6/uL (4.20-6.10); RDW 15.8 % (11.5-14.5)
[2018-04-08 06:25] LABS: WBC 5.8 10x3/uL (4.8-10.8)
[2018-04-08 06:45] LABS: ALBUMIN 2.6 g/dL (3.4-5.0); ALKALINE PHOSPHATASE 32 U/L (46-116); ALT (SGPT) 30 U/L (10-68); BILIRUBIN - TOTAL 0.25 mg/dL (0.2-1.3); CALC OSMOLALITY 281 mosm/kg (275-300); CALCIUM 8.5 mg/dL (8.5-10.1); CARBON DIOXIDE 24.4 mmol/L (21.0-32.0); CHLORIDE - SERUM 103 mmol/L (98-107); POTASSIUM - SERUM 4.5 mmol/L (3.5-5.1); PROTEIN - SERUM 6.3 g/dL (6.4-8.2); SODIUM 137 mmol/L (136-145); UREA NITROGEN 21 mg/dL (7-18); eGFR NON AFRICAN AMERICAN 77 mL/min (90-120)
[2018-04-08 06:47] LABS: GLUCOSE 187 mg/dL (74-106)
[2018-04-08 09:42] VITALS: Ht 175.3 cm; Wt 77.6 kg
[2018-04-08 12:49] VITALS: BP 133/70
[2018-04-08 17:47] VITALS: BP 140/88
[2018-04-08 20:50] VITALS: BP 144/62
[2018-04-09 05:27] VITALS: BP 121/60
[2018-04-09 05:32] LABS: BASOPHILS 0 % (0-2); EOSINOPHILS 0 % (0-7); HEMATOCRIT 33.3 % (42.0-54.0); HEMOGLOBIN 10.9 g/dL (13.5-17.5); IMMATURE GRANULOCYTES 0.5 % (0-5); LYMPHOCYTES 4.2 % (15-50); MCH 28.6 pg (26.0-34.0); MCHC 32.7 g/dL (31.0-37.0); MCV 87.4 fL (80.0-100.0); MEAN PLATELET VOLUME 9.9 fL (7.4-10.4); MONOCYTES 4.1 % (2-11); NEUTROPHILS 91.2 % (40-80); PLATELET COUNT 234 10x3/uL (130-400); RBC 3.81 10x6/uL (4.20-6.10); RDW 15.9 % (11.5-14.5)
[2018-04-09 05:36] LABS: WBC 13.1 10x3/uL (4.8-10.8)
[2018-04-09 06:07] LABS: ALBUMIN 2.5 g/dL (3.4-5.0); ALKALINE PHOSPHATASE 43 U/L (46-116); ALT (SGPT) 26 U/L (10-68); BILIRUBIN - TOTAL 0.17 mg/dL (0.2-1.3); CALC OSMOLALITY 285 mosm/kg (275-300); CALCIUM 8.6 mg/dL (8.5-10.1); CARBON DIOXIDE 25.2 mmol/L (21.0-32.0); CHLORIDE - SERUM 104 mmol/L (98-107); GLUCOSE 172 mg/dL (74-106); PHOSPHOROUS 1.7 mg/dL (2.5-4.9); POTASSIUM - SERUM 4.1 mmol/L (3.5-5.1); PROTEIN - SERUM 6.1 g/dL (6.4-8.2); SODIUM 139 mmol/L (136-145); UREA NITROGEN 25 mg/dL (7-18); eGFR NON AFRICAN AMERICAN 77 mL/min (90-120)
[2018-04-09 10:28] VITALS: BP 153/72
[2018-04-09 12:37] VITALS: BP 123/74
[2018-04-09 17:10] VITALS: BP 120/64
[2018-04-09 22:54] VITALS: BP 106/68
[2018-04-10 05:09] VITALS: BP 133/68
[2018-04-10 05:50] LABS: BASOPHILS 0 % (0-2); EOSINOPHILS 0 % (0-7); HEMATOCRIT 32.3 % (42.0-54.0); HEMOGLOBIN 10.7 g/dL (13.5-17.5); IMMATURE GRANULOCYTES 0.7 % (0-5); LYMPHOCYTES 4.3 % (15-50); MCH 29.1 pg (26.0-34.0); MCHC 33.1 g/dL (31.0-37.0); MCV 87.8 fL (80.0-100.0); MEAN PLATELET VOLUME 10.1 fL (7.4-10.4); MONOCYTES 3.9 % (2-11); NEUTROPHILS 91.1 % (40-80); PLATELET COUNT 235 10x3/uL (130-400); RBC 3.68 10x6/uL (4.20-6.10); RDW 16.3 % (11.5-14.5)
[2018-04-10 06:01] LABS: ALBUMIN 2.4 g/dL (3.4-5.0); ALKALINE PHOSPHATASE 41 U/L (46-116); ALT (SGPT) 30 U/L (10-68); BILIRUBIN - TOTAL 0.13 mg/dL (0.2-1.3); CALC OSMOLALITY 288 mosm/kg (275-300); CALCIUM 8.6 mg/dL (8.5-10.1); CARBON DIOXIDE 27.3 mmol/L (21.0-32.0); CHLORIDE - SERUM 105 mmol/L (98-107); CREATININE - SERUM 0.9 mg/dL (0.6-1.3); GLUCOSE 132 mg/dL (74-106); MAGNESIUM - SERUM 1.9 mg/dL (1.8-2.4); POTASSIUM - SERUM 4.2 mmol/L (3.5-5.1); PROTEIN - SERUM 5.7 g/dL (6.4-8.2); SODIUM 141 mmol/L (136-145); UREA NITROGEN 29 mg/dL (7-18); eGFR NON AFRICAN AMERICAN 87 mL/min (90-120)
[2018-04-10 06:09] LABS: PHOSPHOROUS 2.3 mg/dL (2.5-4.9)
[2018-04-10 06:29] LABS: WBC 17.1 10x3/uL (4.8-10.8)
[2018-04-10 11:26] LABS: PLT FUNCT.(P2Y12) PLAVIX 277 PRU (194-418)
[2018-04-10 12:51] LABS: APPEARANCE CLEAR (CLEAR); BILIRUBIN NEGATIVE (NEGATIVE); COLOR YELLOW (YELLOW); GLUCOSE 50 mg/dL (NEGATIVE); KETONE SMALL mg/dL (NEGATIVE); NITRITE NEGATIVE (NEGATIVE); PROTEIN NEGATIVE (NEGATIVE); SPECIFIC GRAVITY 1.025 (1.005-1.020); UROBILINOGEN NORMAL (NORMAL)
[2018-04-10 13:05] VITALS: BP 91/45
[2018-04-10 16:25] VITALS: BP 105/52
[2018-04-10 20:00] VITALS: BP 107/62
[2018-04-11 04:00] VITALS: BP 148/75
[2018-04-11 04:57] LABS: BASOPHILS 0.1 % (0-2); EOSINOPHILS 0.1 % (0-7); HEMATOCRIT 32.9 % (42.0-54.0); HEMOGLOBIN 10.6 g/dL (13.5-17.5); IMMATURE GRANULOCYTES 1.1 % (0-5); LYMPHOCYTES 13.9 % (15-50); MCH 28.6 pg (26.0-34.0); MCHC 32.2 g/dL (31.0-37.0); MCV 88.7 fL (80.0-100.0); MEAN PLATELET VOLUME 9.9 fL (7.4-10.4); MONOCYTES 6.6 % (2-11); NEUTROPHILS 78.2 % (40-80); PLATELET COUNT 237 10x3/uL (130-400); RBC 3.71 10x6/uL (4.20-6.10); RDW 16.3 % (11.5-14.5)
[2018-04-11 05:02] LABS: ALBUMIN 2.3 g/dL (3.4-5.0); BILIRUBIN - TOTAL 0.2 mg/dL (0.2-1.3); CALCIUM 8.6 mg/dL (8.5-10.1); CARBON DIOXIDE 31.1 mmol/L (21.0-32.0); CREATININE - SERUM 1.1 mg/dL (0.6-1.3); POTASSIUM - SERUM 4.1 mmol/L (3.5-5.1); PROTEIN - SERUM 5.4 g/dL (6.4-8.2)
[2018-04-11 05:03] LABS: WBC 12.7 10x3/uL (4.8-10.8)
[2018-04-11 08:33] VITALS: BP 159/73
[2018-04-11] MEDS ORDERED: MEDROL DOSE PACK4 MG PO (11:27)
[2018-04-11] MEDS ORDERED: DOXYCYCLINE HY100 M2 PO (11:29)
[2018-04-11 11:55] VITALS: BP 156/88
[2018-04-11 16:41] VITALS: BP 123/81
== END 2018-04-11 19:35 | disposition home or self-care (01) | DRG 190 ==
LOC: D.RT 10:45 → D.MS 15:47 → D.RT 05-08 11:00
PROVIDERS: Family Medicine; Thoracic Surgery (Cardiothoracic Vascular Surgery)
DX: J44.0 Chronic obstructive pulmonary disease with (acute) lower respiratory infection (principal); J18.9 Pneumonia, unspecified organism; C34.92 Malignant neoplasm of unspecified part of left bronchus or lung; F17.203 Nicotine dependence unspecified, with withdrawal; J98.11 Atelectasis; I50.32 Chronic diastolic (congestive) heart failure; J44.1 Chronic obstructive pulmonary disease with (acute) exacerbation; D72.829 Elevated white blood cell count, unspecified; J30.1 Allergic rhinitis due to pollen; E27.8 Other specified disorders of adrenal gland; I25.10 Atherosclerotic heart disease of native coronary artery without angina pectoris; I11.0 Hypertensive heart disease with heart failure; R63.4 Abnormal weight loss; G89.29 Other chronic pain; N40.0 Benign prostatic hyperplasia without lower urinary tract symptoms; Z95.0 Presence of cardiac pacemaker; I48.0 Paroxysmal atrial fibrillation; Z68.25 Body mass index [BMI] 25.0-25.9, adult

== ENCOUNTER 2018-06-23 08:33 | Outpatient (CLI) | payer MEDICARE, MEDICAID ==
[~2018-06-23] VITALS: Ht 175.3 cm; Wt 80.5 kg
--- NOTE | ~2018-06-23 | HEMODYNAMI ---
PATIENT:DAANE HUA SR MEDICAL RECORD: [id number] : 40 LOCATION:D.CAT ADMISSION DATE: 06/23/18 Generatedon:06/23/201813:24 Patient name: DANAE HUA Patient #: [id number] SSN: : 1940 Date of study: 06/23/2018 Page: Of Hemodynamic Procedure Report Patient Data Patient Demographics Procedure consent was obtained First Name: DANAE Gender: Male Last Name: MELITA Suffix: [facility] Initial: LULÚ : 1940 Patient #: [id number] Age: 77 year(s) Race: Additional ID: [id number] Contact details Address: [address] [place] [address] State: [place] City: [facility] Zip code: [address] Past Medical History History of disease Date Diagnosis Comments Peripheral vascular disease CHF->KNIGHT CAD Hypertension Allergies Allergen Reaction Date Comments Reported Penicillins 10/08/2015 Penicillins 09/22/2016 Penicillins 10/24/2017 Penicillins 06/23/2018 Admission Admission Data Admission Date: 06/23/2018 Admission Time: 8:33 Height (in.): 69 BSA: 1.96 (m2) Height (cm.): 175.26 BMI: 25.99 (kg/m2) Weight (lbs.): 176 Weight (kg.): 79.83 Lab Results Lab Result Date: 06/23/2018 Lab Result Time: 0:00 Biochemistry Name Units Result Min Max BUN mg/dl 20 --(----)*- 7 18 Creatinine mg/dl 1.2 --(---*)-- 0.6 1.3 CBC Name Units Result Min Max Hemoglobin g/dl 12.5 *-(----)-- 13.5 17.5 Procedure Procedure Types Cath Procedure Diagnostic Procedure LHC LH w/Coronaries Sedation Charges Moderate Sedation up to 15 minutes PCI Procedure Coronary Stent Coronary Stent Initial Procedure Description Procedure Date Procedure Date: 06/23/2018 Procedure Start Time: 13:04 Procedure End Time: 13:23 Procedure Staff Name Function Oni Isabel MD Performing Physician Mandy Garcia RT Monitor Marciano Patel RT Scrub Socorro Hudson RN Nurse Procedure Data Cath Procedure Fluoroscopy Diagnostic fluoroscopy Total fluoroscopy Time: 4 time: 4 min min Diagnostic fluoroscopy Total fluoroscopy dose: 702 dose: 702 mGy mGy Contrast Material Contrast Material Type Amount (ml) Isovue 300 101 Entry Location Entry Primary Successful Side Size Upsize Upsize Entry Closure Succes sful Closure Location (Fr) 1 (Fr) 2 (Fr) Remarks Device Remarks Femoral Right 5 Fr 6 Fr Exoseal artery Short Estimated blood loss: 10 ml Diagnostic catheters Device Type Used For End Catheter Placement MULTIPACK Pigtail 5 Fr Procedure catheter MULTIPACK JL 4.0 5Fr Procedure catheter MULTIPACK 3DRC 5Fr Procedure catheter Procedure Complications No complications Procedure Medications Medication Administration Route Dosage 0.9% NaCl I.V. 100 ml/hr Oxygen etCO2 Nasal cannula 2 l/min Lidocaine 2% added to field 20 Heparin Flush Bag added to field 2 bags (1000units/500ml NS) Versed I.V. 2 mg Fentanyl I.V. 50 mcg Versed I.V. 2 mg Fentanyl I.V. 50 mcg Heparin Bolus I.V. 4000 units Hemodynamics Rest BSA: 1.96 (m2) HGB: 12.5 (g/dl) O2 Consumption: Estimated: 229.17 (ml/min) O2 Co nsumption indexed: Estimated:116.92 (ml/min/m) Heart Rate: 76 (bpm) Snapshots Pre Cath Intra NCS Post Cath Vital Signs Time Heart Resp SPO2 etCO2 NIBP (mmHg) Rhythm Pain Sedation Rate (ipm) (%) (mmHg) Status Level (bpm) 12:24:40 82 19 99 33.7 130/76(97) NSR 0 (11) 10(A) , No pain 12:28:50 77 14 99 34.5 129/80(110) NSR 0 (11) 10(A) , No pain 12:33:00 73 13 98 32 132/77(110) NSR 0 (11) 10(A) , No pain 12:45:33 62 14 99 24.7 125/78(104) NSR 0 (11) 10(A) , No pain 12:49:43 69 14 98 19.5 126/79(107) NSR 0 (11) 10(A) , No pain 12:53:47 69 12 97 28.5 107/91(103) NSR 0 (11) 10(A) , No pain 12:58:42 69 11 98 28 117/77(108) NSR 0 (11) 10(A) , No pain 13:02:48 56 12 98 21 124/79(115) NSR 0 (11) 10(A) , No pain 13:06:58 69 13 98 20 129/70(103) NSR 0 (11) 10(A) , No pain 13:11:08 60 11 98 16 134/76(113) NSR 0 (11) 9(A) , No pain 13:15:22 63 11 97 32.3 130/74(123) NSR 0 (11) 9(A) , No pain 13:19:31 70 12 99 33 129/82(110) NSR 0 (11) 10(A) , No pain 13:23:43 69 12 98 30 130/72(112) NSR 0 (11) 10(A) , No pain Medications Time Medication Route Dose Verified Delivered Reason Notes Effectiveness by by 12:26:58 0.9% NaCl I.V. 100 Oni Socorro used for ml/hr Chalo Hudson rehab manager 12:27:05 Oxygen etCO2 2 Oni Socorro used for Nasal l/min Chalo Hudson procedure cannula RN 12:27:10 Lidocaine 2% added 20ml Oni Oni for local to vial Chalo Isabel MD anesthetic field 12:27:15 Heparin Flush added 2 Oni Oni used for Bag to bags Chalo Isabel MD procedure (1000units/500ml field NS) 13:02:08 Versed I.V. 2 mg Oni Socorro for sedation Chalo Hudson RN 13:02:14 Fentanyl I.V. 50 Oni Socorro for sedation mcg Chalo Hudson RN 13:09:04 Versed I.V. 2 mg Oni Socorro for sedation Chalo Hudson RN 13:09:08 Fentanyl I.V. 50 Oni Socorro for sedation mcg Chalo Hudson RN 13:14:00 Heparin Bolus I.V. 4000 Oni Socorro for verif ied units Chalo Hudson anticoagulation with Dr. KIRK Isabel Procedure Log Time Note 12:11:03 Marciano Patel RT(R) sent for patient. Start room use. 12:11:04 Diagnostic Cath status Elective 12::05 Signed procedure consent form obtained from patient. 12:11:06 Time tracking: Regular hours (M-F 7:00 - 5:00) 12:11:11 Plan of Care:Hemodynamics will remain stable., Cardiac rhythm will remain stable., Comfort level will be maintained., Respiratory function will remain adequate., Patient/ family verbilizes understanding of procedure., Procedure tolerated without complication., Recovers from procedure without complications.. 12:11:35 H&P Date Dictated: 06/14/2018 Within 30 days and on chart., H&P Addendum completed by physician on day of procedure. (MUST COMPLETE FOR ALL OUTPATIENTS). 12:13:26 Patient allergic to Penicillins 12::44 Lab Result : Hemoglobin 12.5 g/dl 12::44 Lab Result : Creatinine 1.2 mg/dl 12::44 Lab Result : BUN 20 mg/dl 12:19:18 Patient received from Pre/Post Procedure Room to CCL 1 Alert and oriented. Tansferred to table in Supine position. 12:19:23 Warm blankets applied, and umberto hugger turned on for patient comfort. 12:19:24 Correct patient and procedure confirmed by team. 12:19:25 ECG and BP/O2 sat monitors applied to patient. 12:23:43 Vital chart was started 12:26:58 0.9% NaCl 100 ml/hr I.V. was administered by Socorro Hudson RN; used for procedure; 12:27:05 Oxygen 2 l/min etCO2 Nasal cannula was administered by Socorro Husdon RN; used for procedure; 12:27:10 Lidocaine 2% 20ml vial added to field was administered by Oni Isabel MD; for local anesthetic; 12:27:15 Heparin Flush Bag (1000units/500ml NS) 2 bags added to field was administered by Oni Isabel MD; used for procedure; 12:30:01 Baseline sample Acquired. 12:30:05 Rhythm: sinus rhythm , paced 12:30:06 Pre-procedure instructions explained to patient. 12:30:06 Full Disclosure recording started 12:30:07 Pre-op teaching completed and patient verbalized understanding. 12:30:08 Family in patients room. 12:30:09 Patient NPO since Midnight. 12:30:11 Is patient on blood thinner?Yes 12:30:13 ACC The patient was administered the following blood thiners within the last 24 hours: ACCPlavix 12:30:15 Patient diabetic? No. 12:30:17 Previous problem with sedation/anesthesia? No ? 12:30:18 Snore? Yes 12:30:19 Sleep apnea? No 12:30:20 Opens mouth fully? Yes 12:30:20 Deviated septum? No 12:30:21 Sticks out tongue? Yes 12:30:25 Airway obstruction? Yes COPD 12:30:33 Dentures? Yes OUT 12:30:46 Pre procedure: right dorsailis pedis pulse 2+ Normal; easily identifiable; not easily obliterated 12:30:48 Patient pain scale 0/10 ?. 12:30:52 IV patent on arrival in left hand with 0.9% NaCl at [facility]. 12:30:54 Lab results completed and on chart. 12:31:00 Right groin area was prepped with chlora-prep and draped in sterile fashion 12:31:02 Sharps counted by scrub and verified by R.N. 12:31:02 Alarms reviewed by R. N. 12:31:06 Use device set Femoral Dx 12:31:07 ACIST Syringe (41571) opened to sterile field. 12:31:08 ACIST Hand Control (94133) opened to sterile field. 12:31:08 Bag Decanter (2002S) opened to sterile field. 12:31:09 ACIST Manifold (28794) opened to sterile field. 12:31:10 Tegaderm 4 x 4 (1626W) opened to sterile field. 12:31:11 DIAGNOSTIC WIRE .035 260cm J wire (787331) opened to sterile field. 12:31:11 Medline Cath Pack ([id number]) opened to sterile field. 12:31:13 DIAGNOSTIC Multipack 5Fr catheter set ([id number]) opened to sterile field. 12:31:15 SHEATH 5FR [place] (YLP156) opened to sterile field. 12:32:36 Patient Height : 69 inches 12:32:41 Patient Weight : 176 lbs 12:44:37 Vital chart was started 12:57:42 Baseline sample Acquired. 13::05 --------ALL STOP TIME OUT------ 13::06 Final Timeout: patient, procedure, and site verified with staff and physician. All members of the team are in agreement. 13:01:08 Right groin site verified by team. 13:01:11 Physical assessment completed. ASA score P 2 - A patient with mild systemic disease as per Oni Isabel MD. 13:01:15 Sedation plan: IV Moderate Sedation Medication:Versed, Fentanyl 13::08 Versed 2 mg I.V. was administered by Socorro Hudson RN; for sedation; 13::14 Fentanyl 50 mcg I.V. was administered by Socorro Hudson RN; for sedation; ::29 Procedure started. 13:04:29 Full Disclosure recording started 13:04:47 Local anesthetic to right femoral artery with Lidocaine 2% by Oni Isabel MD.INITIAL ACCESS ONLY 13:05:29 Use device set Multipack Set 13:05:32 DIAGNOSTIC Multipack 5Fr catheter set ([id number]) opened to sterile field. 13:07:28 A 5 Fr sheath was inserted into the Right Femoral artery 13:08:09 A MULTIPACK Pigtail 5 Fr catheter was advanced over the wire and used for Procedure. 13:08:41 LV gram done using ALMEIDA 13:08:45 Injector settings: Ml/sec: 10, Volume: 20, 13:09:04 Versed 2 mg I.V. was administered by Socorro Hudson RN; for sedation; 13:09:08 Fentanyl 50 mcg I.V. was administered by Socorro Hudson RN; for sedation; 13:09:41 EF : 55 % 13:09:50 Catheter exchanged over wire. 13:10:16 A MULTIPACK JL 4.0 5Fr catheter was advanced over the wire and used for Procedure. 13:11:29 LCA angiography performed. 13:11:40 Catheter exchanged over wire. 13:12:42 A MULTIPACK 3DRC 5Fr catheter was advanced over the wire and used for Procedure. 13:13:00 LV gram done using ALMEIDA 13:13:02 Catheter exchanged over wire. 13:13:26 SHEATH 6FR [place] (QED669) opened to sterile field. 13:13:26 CHOICE PT Extra Support 182cm wire ([id number]) opened to sterile field. 13:13:27 INFLATOR Merit BasixCompak (NJ5677) opened to sterile field. 13:13:27 GUIDE 6FR XBLAD 4.0 catheter ([id number]) opened to sterile field. 13:13:35 Sheath upsized to a 6 Fr Short. 13:14:00 Heparin Bolus 4000 units I.V. was administered by Socorro Hudson RN; for anticoagulation; verified with Dr. Isabel 13:14:22 6 Fr XBLAD 4 guide catheter was inserted over the wire 13:15:04 CHOICE ES 182 wire advanced. 13:15:56 Wire advanced across lesion. 13:17:13 Place stent Inflation Number: 1 A NICOLETTE RX 3.5 x 12 stent ([id number]) was prepped and advanced across the Mid LAD. The stent was deployed at 19 JOSE for 0:10 (min:sec). 13:17:40 Inflation number: 2 The stent balloon was then re-inflated across the Mid LAD to 21 JOSE for 0:10 (min:sec). 13:18:05 Stent catheter was removed intact over wire. 13:18:06 Wire removed. 13:18:07 Guide catheter removed. 13:18:13 EXOSEAL 6Fr (EX600) opened to sterile field. 13:18:28 Sheath removed intact; hemostasis achieved with Exoseal to the Right Femoral artery. 13:18:30 Procedure ended.(Physican Out) 13:21:41 Fluoroscopy time 04.00 minutes. 13:21:45 Flurop Dose total: 702 13:21:45 Fluoroscopy dose: 702 mGy 13:21:48 Contrast amount:Isovue 300 101ml. 13:21:51 Sharps counted by scrub and verified by R.N. 13:22:04 Post-op/insertion site Right Femoral artery dressed using a 4 x 4 and Tegaderm. 13:22:09 Post-procedure physical assessment completed. ASA score P 2 - A patient with mild systemic disease as per Oin Isabel MD. 13:22:12 Post procedure rhythm: paced 13:22:14 Estimated blood loss: 10 ml 13:22:15 Post procedure instruction explained to patient.Patient verbalizes understanding. 13:22:16 Patient needs reinforcement of post procedure teaching. 13:23:19 Procedure type changed to Cath procedure, Diagnostic procedure, LHC, LHC w/Coronaries, Sedation Charges, Moderate Sedation up to 15 minutes, PCI procedure, Coronary Stent, Coronary Stent Initial 13:23:43 Procedure and supply charges have been captured, reviewed, submitted and are correct. 13:23:45 Procedure Complication : No complications 13:23:47 Vital chart was stopped 13:23:47 See physician's report for complete and final results. 13:23:48 Report given to Pre/Post Procedure Room. 13:23:51 Patient transfered to Pre/Post Procedure Room with Bed. 13:23:53 Procedure ended. 13:23:53 Full Disclosure recording stopped 13:23:56 End room use (Document Last) Intervention Summary Intervention Notes Time ActionType Lesion and Equipment Used Action# Pressure Duration Attributes 13:17:13 Place stent Mid LAD NICOLETTE RX 3.5 x 1 19 00:10 12 stent ([id number]) 13:17:40 Reinflate Mid LAD NICOLETTE RX 3.5 x 2 21 00:10 stent 12 stent balloon ([id number]) Device Usage Item Name Manufacture Quantity Catalog Number Hospital Part Current M inimal Lot# / Charge Number Stock Stock Serial# Code ACIST Syringe Acist 1 51716 806154 467973 137416 2 0 (16573) Medical Systems Inc Bag Decanter Microtek 1 2001S 673299 17878 727920 5 (2001S) Medical Inc. ACIST Hand Acist 1 90995 456936 207165 466978 5 Control Medical (14429) Systems Inc ACIST Manifold Acist 1 93650 932481 218933 863008 5 (38521) Medical Systems Inc Tegaderm 4 x 4 3M 1 1626W 042521 499061 829704 5 (1626W) Medline Cath Medline 1 [id number] 350987 68199 562271 5 Pack ([id number]) DIAGNOSTIC St Won 1 551043 626161 162888 321887 3 0 WIRE .035 260cm J wire (050006) DIAGNOSTIC Cardinal 2 DS0453 386918 86647 673876 3 0 Multipack 5Fr Health catheter set (NZ4156) SHEATH 5FR Terumo 1 MGK707 579691 759771 078147 5 [place] (NFC146) MULTIPACK Cardinal 1 196690 5 Pigtail 5 Fr Health catheter MULTIPACK JL Cardinal 1 [id number] 5 4.0 5Fr Health catheter MULTIPACK 3DRC Cardinal 1 585502 5 5Fr catheter Health SHEATH 6FR Terumo 1 TSV162 506740 679211 456843 4 0 [place] (IOC188) CHOICE PT [facility] 1 [id number] 044561 273943 192298 5 Extra Support Scientific 182cm wire ([id number]) INFLATOR Merit Merit 1 PW5001 923858 231168 973294 1 5 [place] (MR7090) GUIDE 6FR Cardinal 1 [id number] 180453 489735 332375 3 XBLAD 4.0 Health catheter ([id number]) NICOLETTE RX 3.5 x Medtronic 1 [id number] 577237 0331474 029628 5 [id number] 12 stent ([id number]) EXOSEAL 6Fr Cardinal 1 EX600 321288 727849 344324 1 0 (EX600) Health Signature Audit [place]ado Stage Time Signature Unsigned Intra-Procedure 06/23/2018 Mandy Garcia 1:24:14 PM RT(R) Signatures Monitor : Mandy Garcia Signature : RT Date : Time : [place] [id number] [place] [address]
[~2018-06-23 08:33] MED LIST changes: +DOXYCYCLINE HY100 M2 PO; +MEDROL DOSE PACK4 MG PO
[2018-06-23] MEDS ORDERED: DECADRON4 MG PO (08:49)
[2018-06-23] MEDS ORDERED: REMERON15 MG PO (08:50)
[2018-06-23 08:58] VITALS: BP 121/85; Ht 175.3 cm; Wt 80.5 kg
[2018-06-23 09:21] LABS: ANION GAP 14.2 mmol/L (8-16); CALCIUM 8.7 mg/dL (8.5-10.1); CARBON DIOXIDE 26.6 mmol/L (21.0-32.0); CREATININE - SERUM 1.2 mg/dL (0.6-1.3); POTASSIUM - SERUM 3.8 mmol/L (3.5-5.1)
[2018-06-23 09:34] LABS: BASOPHILS 0.3 % (0-2); EOSINOPHILS 1.5 % (0-7); HEMATOCRIT 38.4 % (42.0-54.0); HEMOGLOBIN 12.5 g/dL (13.5-17.5); IMMATURE GRANULOCYTES 0.1 % (0-5); MCH 28.9 pg (26.0-34.0); MCHC 32.6 g/dL (31.0-37.0); MCV 88.9 fL (80.0-100.0); MEAN PLATELET VOLUME 10.4 fL (7.4-10.4); MONOCYTES 11.4 % (2-11); NEUTROPHILS 58.7 % (40-80); RBC 4.32 10x6/uL (4.20-6.10); RDW 17.2 % (11.5-14.5); WBC 7.3 10x3/uL (4.8-10.8)
[2018-06-23 09:35] LABS: PLATELET COUNT 349 10x3/uL (130-400)
--- NOTE | 2018-06-23 19:41 | OP ---
PATIENT NAME: DANAE HUA SR MEDICAL RECORD: [id number] :[birth year] LOCATION:D.CAT ADMISSION DATE: SURGEON: MADHURI MELÉNDEZ MD DATE OF OPERATION: 06/23/2018 PROCEDURES: 1. PTCA and stent of LAD. 2. Left heart catheterization. 3. Selective coronary angiography. 4. Left ventriculogram. INDICATION: Angina and coronary artery disease. PROCEDURE IN DETAIL: After informed consent was obtained and after detailed explanation of risks, benefits as well as alternative therapies, the patient elected to proceed with angiogram and angioplasty. The right femoral area was prepped and draped in normal sterile fashion. Right femoral artery was cannulated via modified Seldinger technique with placement of a 6-[place] sheath. All catheters exchanged through this sheath. FINDINGS: Left ventriculogram was performed in a standard 30-degree [place] view, reveals good cardiac wall motion throughout all segments. Overall ejection fraction estimated 60%. SELECTIVE CORONARY ANGIOGRAPHY: 1. Left main is with no significant angiographic disease. 2. Left anterior descending has previously placed stents, these have up to 80% in-stent restenosis in the mid vessel, otherwise only mild irregularities. 3. Left circumflex has previously placed stents, these are widely patent with no significant restenosis. 4. Right coronary has mild irregularities, but no flow-limiting stenosis. PTCA AND STENT OF THE LAD: The stent used is a 3.5 x 12-mm [place]. Result was 0% residual stenosis. OVERALL IMPRESSION: Successful PTCA and stent of the left anterior descending going from 80% in-stent restenosis to 0% residual stenosis. TRANSINT:[id number] Voice Confirmation ID: [id number] DOCUMENT ID: [id number] MADHURI MELÉNDEZ MD at 1941 CC: [id number] DICTATION DATE: 06/23/18 1322 AIRCRAFT ENGINE DISMANTLER: 06/23/18 1408 DEP CLI 06/23/18 [address] [place] [address]
== END 2018-06-23 17:45 ==
LOC: D.CATH 08:33
PROVIDERS: Internal Medicine Interventional Cardiology
DX: I25.119 Atherosclerotic heart disease of native coronary artery with unspecified angina pectoris (principal); Z01.812 Encounter for preprocedural laboratory examination

== ENCOUNTER → 2018-07-26 12:05 | Outpatient (CLI) | payer MEDICARE, MEDICAID ==
[2018-06-23 08:58] VITALS: BMI 26.2
[~2018-07-26 12:05] MED LIST changes: +CARBOPLATIN; +DECADRON4 MG PO; +FOLIC ACID1 MG PO; +KEYTRUDA; +LANOXIN125 MCG PO; +PEMETREXED; +REMERON15 MG PO; +ZOFRAN4 MG PO
== END | disposition home or self-care (01) ==
LOC: D.US 12:05
DX: M79.661 Pain in right lower leg (principal)

== ENCOUNTER 2018-08-04 14:12 | Emergency (ER) | payer MEDICARE, MEDICAID ==
[~2018-08-04] VITALS: Ht 175.3 cm; Wt 79.5 kg
[~2018-08-04 14:12] MED LIST changes: -CARBOPLATIN; -FOLIC ACID1 MG PO; -KEYTRUDA; -LANOXIN125 MCG PO; -PEMETREXED; -ZOFRAN4 MG PO
[2018-08-04 14:17] VITALS: Ht 175.3 cm; Wt 79.5 kg
[2018-08-04] MEDS ORDERED: LANOXIN125 MCG PO (14:19)
[2018-08-04] MEDS ORDERED: FOLIC ACID1 MG PO (14:19)
[2018-08-04] MEDS ORDERED: DECADRON4 MG PO (14:20)
[2018-08-04] MEDS ORDERED: ZOFRAN4 MG PO (14:21)
[2018-08-04] MEDS ORDERED: CARBOPLATIN (14:24)
[2018-08-04] MEDS ORDERED: PEMETREXED (14:24)
[2018-08-04] MEDS ORDERED: KEYTRUDA (14:25)
[2018-08-04 15:14] LABS: BASOPHILS 0.1 % (0-2); EOSINOPHILS 0 % (0-7); HEMATOCRIT 37.2 % (42.0-54.0); HEMOGLOBIN 12.3 g/dL (13.5-17.5); IMMATURE GRANULOCYTES 2.4 % (0-5); LYMPHOCYTES 7.9 % (15-50); MCH 29.1 pg (26.0-34.0); MCHC 33.1 g/dL (31.0-37.0); MCV 87.9 fL (80.0-100.0); MEAN PLATELET VOLUME 10.1 fL (7.4-10.4); MONOCYTES 5.2 % (2-11); NEUTROPHILS 84.4 % (40-80); PLATELET COUNT 319 10x3/uL (130-400); RBC 4.23 10x6/uL (4.20-6.10); RDW 18.1 % (11.5-14.5); WBC 14.3 10x3/uL (4.8-10.8)
[2018-08-04 15:26] LABS: ANION GAP 18.3 mmol/L (8-16); BILIRUBIN - TOTAL 0.35 mg/dL (0.2-1.3); CALCIUM 8.9 mg/dL (8.5-10.1); CARBON DIOXIDE 21.6 mmol/L (21.0-32.0); CREATININE - SERUM 1.3 mg/dL (0.6-1.3); POTASSIUM - SERUM 3.9 mmol/L (3.5-5.1)
[2018-08-04 15:53] LABS: THYROID STIMULATING HORMONE 0.12 uIU/mL (0.36-3.74)
[2018-08-04 16:10] LABS: APPEARANCE CLEAR (CLEAR); BILIRUBIN NEGATIVE (NEGATIVE); COLOR STRAW (YELLOW); GLUCOSE 250 mg/dL (NEGATIVE); KETONE NEGATIVE (NEGATIVE); NITRITE NEGATIVE (NEGATIVE); PROTEIN NEGATIVE (NEGATIVE); UROBILINOGEN NORMAL (NORMAL)
[2018-08-04 16:29] VITALS: BP 136/73
== END 2018-08-04 16:33 | disposition home or self-care (01) ==
LOC: D.ER 14:12
PROVIDERS: Emergency Medicine
DX: T45.1X5A Adverse effect of antineoplastic and immunosuppressive drugs, initial encounter (principal); Y92.019 Unspecified place in single-family (private) house as the place of occurrence of the external cause; F09 Unspecified mental disorder due to known physiological condition; E74.39 Other disorders of intestinal carbohydrate absorption; C34.90 Malignant neoplasm of unspecified part of unspecified bronchus or lung

== ENCOUNTER → 2018-08-28 15:10 | Outpatient (CLI) | payer MEDICARE, MEDICAID ==
[2018-08-04 14:17] VITALS: BMI 25.9
[~2018-08-28 15:10] MED LIST changes: +CARBOPLATIN; +FLUTICASONE PRO16 GM NASAL; +FOLIC ACID1 MG PO; +KEYTRUDA; +LANOXIN125 MCG PO; +MEGACE400 MG/10 PO; +PEMETREXED; +SINGULAIR10 MG PO; +ZOFRAN4 MG PO
== END | disposition home or self-care (01) ==
LOC: D.CT 15:10
PROVIDERS: ATTEND Internal Medicine Pulmonary Disease
DX: C34.12 Malignant neoplasm of upper lobe, left bronchus or lung (principal)

== ENCOUNTER 2018-09-01 09:15 | Outpatient (CLI) | payer MEDICARE, MEDICAID ==
[~2018-09-01] VITALS: Ht 175.3 cm; Wt 85.0 kg
--- NOTE | ~2018-09-01 | HEMODYNAMI ---
PATIENT:DANAE HUA SR MEDICAL RECORD: [id number] : 40 LOCATION:D.CAT ADMISSION DATE: 09/01/18 Generatedon:09/01/201812:10 Patient name: DANAE HUA Patient #: [id number] SSN: : 1940 Date of study: 09/01/2018 Page: Of Hemodynamic Procedure Report Patient Data Patient Demographics Procedure consent was obtained First Name: DANAE Gender: Male Last Name: MELITA Suffix: [facility] Initial: LULÚ : 1940 Patient #: [id number] Age: 78 year(s) Race: Additional ID: [id number] Contact details Address: [address] [place] [address] State: [place] City: [facility] Zip code: [address] Past Medical History History of disease Date Diagnosis Comments Peripheral vascular disease CHF->KNIGHT CAD Hypertension Allergies Allergen Reaction Date Comments Reported Penicillins 10/08/2015 Penicillins 09/22/2016 Penicillins 10/24/2017 Penicillins 06/23/2018 Penicillins 09/01/2018 Admission Admission Data Admission Date: 09/01/2018 Admission Time: 9:15 Height (in.): 69 BSA: 1.96 (m2) Height (cm.): 175.26 BMI: 25.99 (kg/m2) Weight (lbs.): 176 Weight (kg.): 79.83 Lab Results Lab Result Date: 09/01/2018 Lab Result Time: 0:00 Biochemistry Name Units Result Min Max BUN mg/dl 20 --(----)*- 7 18 Creatinine mg/dl 1.1 --(--*-)-- 0.6 1.3 CBC Name Units Result Min Max Hematocrit % 36 *-(----)-- 42 54 Hemoglobin g/dl 12.1 *-(----)-- 13.5 17.5 Procedure Procedure Types Cath Procedure Peripheral Cath Diagnostic Procedure Quarry Manager Peripheral Procedures Cwulb-Vturbdx-Ebf-Off Procedure Description Procedure Date Procedure Date: 09/01/2018 Procedure Start Time: 12:01 Procedure End Time: 12:08 Procedure Staff Name Function Oni Isabel MD Performing Physician Mandy Garcia RT Monitor Darci Ibrahim RT Scrub Fabrice Kinsey RN Nurse Procedure Data Cath Procedure Fluoroscopy Diagnostic fluoroscopy Total fluoroscopy dose: 156 dose: 156 mGy mGy Contrast Material Contrast Material Type Amount (ml) Isovue 300 57 Entry Location Entry Primary Successful Side Size Upsize Upsize Entry Closure Succes sful Closure Location (Fr) 1 (Fr) 2 (Fr) Remarks Device Remarks Femoral Left 6 Fr Exoseal artery Short Estimated blood loss: 5 ml Diagnostic catheters Device Type Used For End Catheter Placement DIAGNOSTIC UF 5Fr Procedure catheter ([id number]) Procedure Complications No complications Procedure Medications Medication Administration Route Dosage 0.9% NaCl I.V. 100 ml/hr Oxygen etCO2 Nasal cannula 2 l/min Heparin Flush Bag added to field 2 bags (1000units/500ml NS) Lidocaine 2% added to field 20 Versed I.V. 2 mg Fentanyl I.V. 100 mcg Versed I.V. 1 mg Hemodynamics Rest BSA: 1.96 (m2) HGB: 12.1 (g/dl) O2 Consumption: Estimated: 227.29 (ml/min) O2 Co nsumption indexed: Estimated:115.96 (ml/min/m) Heart Rate: 74 (bpm) Snapshots Pre Cath Intra NCS Post Cath Vital Signs Time Heart Resp SPO2 etCO2 NIBP (mmHg) Rhythm Pain Sedation Rate (ipm) (%) (mmHg) Status Level (bpm) 11:45:39 87 15 97 0 160/90(121) Paced 0 (11) 10(A) , No pain 11:49:53 72 16 99 25.4 136/92(121) Paced 0 (11) 10(A) , No pain 11:54:01 59 14 99 29.1 138/83(117) Paced 0 (11) 10(A) , No pain 11:58:11 74 16 98 38.1 136/78(103) Paced 0 (11) 10(A) , No pain 12:02:19 70 13 99 31.4 128/80(114) Paced 0 (11) 9(A) , No pain 12:06:26 69 15 99 32.8 120/77(113) Paced 0 (11) 9(A) , No pain Medications Time Medication Route Dose Verified Delivered Reason Notes Eff ectiveness by by 11:52:37 0.9% NaCl I.V. 100 Fabrice Fabrice Per ml/hr Tio Kinsey physician RN RN 11:52:56 Oxygen etCO2 2 Fabrice Fabrice for low 02 Nasal l/min Lorigan Lorigan sats cannula RN RN 11:53:09 Heparin Flush added 2 Fabrice Fabrice used for Bag to bags Lorigan Tio procedure (1000units/500ml field RN RN NS) 11:53:19 Lidocaine 2% added 20ml Fabrice Fabrice for local to vial Lorigan Lorigan anesthetic field RN RN 11:58:34 Versed I.V. 2 mg Fabrice Fabrice for Lorigan Lorigan sedation RN RN 11:58:42 Fentanyl I.V. 100 Fabrice Fabrice for mcg Lorigan Lorigan sedation RN RN 12:02:08 Versed I.V. 1 mg Fabrice Fabrice for Lorigan Lorigan sedation RN c iron worker Log Time Note 11:29:45 Signed procedure consent form obtained from patient. 11:29:46 Diagnostic Cath status Elective 11:29:48 Time tracking: Regular hours (M-F 7:00 - 5:00) 11:29:57 Plan of Care:Hemodynamics will remain stable., Cardiac rhythm will remain stable., Comfort level will be maintained., Respiratory function will remain adequate., Patient/ family verbilizes understanding of procedure., Procedure tolerated without complication., Recovers from procedure without complications.. 11:30:22 Darci ROE(R) sent for patient. Start room use. 11:32:00 H&P Date Dictated: 08/24/2018 Within 30 days and on chart., H&P Addendum completed by physician on day of procedure. (MUST COMPLETE FOR ALL OUTPATIENTS). 11:32:09 Patient Height : 69 inches 11:32:12 Patient Weight : 176 lbs 11:32:20 Patient allergic to Penicillins 11:39:19 Patient received from Pre/Post Procedure Room to CCL 2 Alert and oriented. Tansferred to table in Supine position. 11:39:20 Warm blankets applied, and umberto hugger turned on for patient comfort. 11:39:23 Correct patient and procedure confirmed by team. 11:39:24 ECG and BP/O2 sat monitors applied to patient. 11:44:33 Vital chart was started 11:49:55 Baseline sample Acquired. 11:50:01 Rhythm: sinus rhythm , paced 11:50:02 Full Disclosure recording started 11:50:02 Pre-procedure instructions explained to patient. 11:50:03 Pre-op teaching completed and patient verbalized understanding. 11:50:09 Family in patients room. 11:50:10 Patient NPO since Midnight. 11:50:13 Is patient on blood thinner?Yes 11:50:16 ACC The patient was administered the following blood thiners within the last 24 hours: ACCPlavix 11:50:18 Patient diabetic? No. 11:50:20 Previous problem with sedation/anesthesia? No ? 11:50:22 Snore? Yes 11:50:23 Sleep apnea? No 11:50:24 Deviated septum? No 11:50:24 Opens mouth fully? Yes 11:50:25 Sticks out tongue? Yes 11:50:27 Airway obstruction? No ? 11:50:29 Dentures? No ? 11:50:33 Pre procedure: right dorsailis pedis pulse Doppler 11:50:36 Pre procedure: left dorsailis pedis pulse 2+ Normal; easily identifiable; not easily obliterated 11:50:40 Patient pain scale 0/10 ?. 11:50:49 IV patent on arrival in left hand with 0.9% NaCl at [facility]. 11:51:14 Lab Result : BUN 20 mg/dl 11:51:14 Lab Result : Creatinine 1.1 mg/dl 11:51:14 Lab Result : Hemoglobin 12.1 g/dl 11:51:14 Lab Result : Hematocrit 36 % 11:51:17 Lab results completed and on chart. 11:51:21 Bilateral groins area was prepped with chlora-prep and draped in sterile fashion 11:51:21 Alarms reviewed by R. N. 11:51:22 Sharps counted by scrub and verified by R.N. 11:51:25 Use device set CATH PACK 11:51:26 ACIST Syringe (69393) opened to sterile field. 11:51:27 ACIST Hand Control (13904) opened to sterile field. 11:51:27 ACIST Manifold (40090) opened to sterile field. 11:51:27 Medline Cath Pack ([id number]) opened to sterile field. 11:51:28 Bag Decanter (2002S) opened to sterile field. 11:51:28 DIAGNOSTIC WIRE .035 260cm J wire (282045) opened to sterile field. 11:51:35 SHEATH 6FR [place] (VGU244) opened to sterile field. 11:52:37 0.9% NaCl 100 ml/hr I.V. was administered by Fabrice Kinsey RN; Per physician; 11:52:56 Oxygen 2 l/min etCO2 Nasal cannula was administered by Fabrice Kinsey RN; for low 02 sats; 11:53:09 Heparin Flush Bag (1000units/500ml NS) 2 bags added to field was administered by Fabrice Kinsey RN; used for procedure; 11:53:19 Lidocaine 2% 20ml vial added to field was administered by Fabrice Kinsey RN; for local anesthetic; 11:55:24 --------ALL STOP TIME OUT------ 11:55:24 Final Timeout: patient, procedure, and site verified with staff and physician. All members of the team are in agreement. 11:55:26 Bilateral groins site verified by team. 11:55:30 Maximum allowable Isovue 300 dose 300ml. Physician notified. (300ml for normal creatinines. For patients with creatinine of 1.7 or higher multiply weight(kg) x 5 divided by creatinine.) 11:55:33 Fire Safety Assessment: A--An alcohol-based skin anteseptic being used preoperatively., C--Open oxygen or nitrous oxide is being used., D--An ESU, laser, or fiber-optic light is being used. 11:55:40 Physical assessment completed. ASA score P 2 - A patient with mild systemic disease as per Oni Isabel MD. 11:55:43 Sedation plan: IV Moderate Sedation Medication:Versed, Fentanyl 11:58:34 Versed 2 mg I.V. was administered by Fabrice Kinsey RN; for sedation; 11:58:42 Fentanyl 100 mcg I.V. was administered by Fabrice Kinsey RN; for sedation; 12:00:26 Procedure started. 12:00:45 Zero performed for pressure channel P1 12:01:06 Local anesthetic to left femerol artery with Lidocaine 2% by Oni Isabel MD.INITIAL ACCESS ONLY 12:01:25 A 6 Fr Short sheath was inserted into the Left Femoral artery 12:01:51 A DIAGNOSTIC UF 5Fr catheter ([id number]) was advanced over the wire and used for Procedure. 12:02:08 Versed 1 mg I.V. was administered by Fabrice Kinsey RN; for sedation; 12:02:45 Abdominal angiogram w/ runoff was performed. 12:02:48 Left leg runoff performed. 12:03:39 Right leg runoff performed. 12:04:33 Catheter removed. 12:04:49 EXOSEAL 5Fr (EX500) opened to sterile field. 12:05:12 Sheath removed intact; hemostasis achieved with Exoseal to the Left Femoral artery. 12:05:22 Procedure ended.(Physican Out) 12:06:25 Flurop Dose total: 156 12:06:25 Fluoroscopy dose: 156 mGy 12:06:36 Contrast amount:Isovue 300 57ml. 12:06:44 Sharps counted by scrub and verified by R.N. 12:06:48 Post-op/insertion site Left Femoral artery dressed using a 4 x 4 and Tegaderm. 12:06:59 Post-procedure physical assessment completed. ASA score P 2 - A patient with mild systemic disease as per Oni Isabel MD. 12:07:03 Post procedure rhythm: sinus rhythm , paced 12:07:06 Estimated blood loss: 5 ml 12:07:08 Post procedure instruction explained to patient.Patient verbalizes understanding. 12:07:08 Patient needs reinforcement of post procedure teaching. 12:08:08 Procedure and supply charges have been captured, reviewed, submitted and are correct. 12:08:09 Procedure Complication : No complications 12:08:12 Vital chart was stopped 12:08:13 See physician's report for complete and final results. 12:08:15 Report given to Pre/Post Procedure Room. 12:08:17 Patient transfered to Pre/Post Procedure Room with Bed. 12:08:19 Procedure ended. 12:08:19 Full Disclosure recording stopped 12:08:22 End room use (Document Last) Device Usage Item Name Manufacture Quantity Catalog Hospital Part Current Minimal L ot# / Number Charge Number Stock Stock Serial# Code ACIST Acist 1 50721 [id number] 624416 839044 20 Syringe Medical (65235) Systems Inc ACIST Hand Acist 1 41408 578550 915118 907923 5 Control Medical (50226) Systems Inc ACIST Acist 1 97673 790894 435649 886611 5 Manifold Medical (67975) Systems Inc Medline Medline 1 [id number] 246057 76107 490914 5 Cath Pack ([id number]) Bag Microtek 1 2002S 329670 49521 007634 5 Decanter Medical Inc. (2001S) DIAGNOSTIC St Won 1 559913 777245 669335 743225 30 WIRE .035 260cm J wire (972501) SHEATH 6FR Terumo 1 ZXP874 564944 561781 029914 40 [place] (BAB987) DIAGNOSTIC Cardinal 1 [id number] 005536 392047 306160 10 UF 5Fr Health catheter ([id number]) EXOSEAL 5Fr Cardinal 1 EX500 908231 273203 097404 10 (EX500) Health Signature Audit [place] Stage Time Signature Unsigned Intra-Procedure 09/01/2018 Mandy Garcia 12:10:30 PM RT(R) Signatures Monitor : Mandy Garcia Signature : RT Date : Time : [id number] [place] [address]
[~2018-09-01 09:15] MED LIST changes: -FLUTICASONE PRO16 GM NASAL; -MEGACE400 MG/10 PO; -SINGULAIR10 MG PO
[2018-09-01 10:07] VITALS: BP 143/83; Ht 175.3 cm; Wt 85.0 kg
[2018-09-01] MEDS ORDERED: FLUTICASONE PRO16 GM NASAL (10:14)
[2018-09-01] MEDS ORDERED: SINGULAIR10 MG PO (10:16)
[2018-09-01] MEDS ORDERED: FLOMAX0.4 MG PO (10:16)
[2018-09-01] MEDS ORDERED: MEGACE400 MG/10 PO (10:16)
[2018-09-01 10:23] LABS: ANION GAP 15.9 mmol/L (8-16); CARBON DIOXIDE 24.3 mmol/L (21.0-32.0); CREATININE - SERUM 1.1 mg/dL (0.6-1.3); POTASSIUM - SERUM 4.2 mmol/L (3.5-5.1)
[2018-09-01 11:05] LABS: BASOPHILS 0.4 % (0-2); EOSINOPHILS 0.8 % (0-7); HEMOGLOBIN 12.1 g/dL (13.5-17.5); IMMATURE GRANULOCYTES 1.3 % (0-5); MCH 29.8 pg (26.0-34.0); MCHC 33.6 g/dL (31.0-37.0); MCV 88.7 fL (80.0-100.0); MEAN PLATELET VOLUME 10.4 fL (7.4-10.4); MONOCYTES 13.6 % (2-11); NEUTROPHILS 55.9 % (40-80); PLATELET COUNT 298 10x3/uL (130-400); RBC 4.06 10x6/uL (4.20-6.10); RDW 19.5 % (11.5-14.5)
--- NOTE | 2018-09-01 12:31 | NUR ---
RECEIVED PT FROM PLATING ENGINEER, PT IS DROWSY, DENIES ANY C/O PAIN OR NAUSEA. DRESSING IS CDI TO LEFT GROIN, PEDAL PULSES PALPABLE. HOB IS FLAT, P TINSTRUCTED TO KEEP HEAD FLAT TO PILLOW AND LEFT LEG STRAIGHT AND PT VERBALIZES UNDERSTANDING. CALL LIGHT IN REACH, NO FAMILY AT BEDSIDE.
--- NOTE | 2018-09-01 12:38 | NUR ---
DRESSING REMAINS CDI TO LEFT GROIN, AREA IS SOFT AND NONTENDER. VSS. HOB IS FLAT, PEDAL PULSES PALPABLE. SON AT BEDSIDE.
--- NOTE | 2018-09-01 13:31 | NUR ---
1245 DRESSING CDI TO LEFT GROIN, PACED RHYTHM, PT DENIES ANY C/O CHEST PAIN. PEDAL PULSES PALPABLE, HOB IS FLAT,SON AT BEDSIDE.
--- NOTE | 2018-09-01 13:32 | NUR ---
HOB ELEVATD 30 DEGREES AND SANDWICH/O FLUIDS SERVED. PT IS ALERT AND DENIES ANY C/O. DRESSING REMAINS CDI, PEDAL PULSES PALPABLE. SONE AT BEDSIDE, PT DENIES NEEDS AT THIS TIME.
--- NOTE | 2018-09-01 13:54 | NUR ---
HOB FULLY ELEVATED, DRESSING IS CDI TO LEFT GROIN, AREA IS SOFT AND NONTENDER. PEDAL PULSES PALPABLE. DC INSTRUCTIONS REVIEWED WITH PT AND SON WHO VERBALIZE UNDERSTANDING. WRITTEN COPIES PROVIDED.
--- NOTE | 2018-09-01 14:50 | NUR ---
1410 DRESSING REMAINS CDI TO LEFT GROIN, AREA IS SOFT AND NONTENDER. PEDAL PULSES PALPABLE. VSS. DR MELÉNDEZ HAS ROUNDED. IV DC'D WITH CATH INTACT AND PT IS DRESSING FOR DC TO HOME WITH ASSIST 1420 PT HAS DRESSED FOR DC TO HOME, DENIES ANY C/O. PT ESCORTED TO PRIVATE AUTO VIA WC BY NURSE WITH SON DRIVING HIM HOME.
== END 2018-09-01 14:20 | disposition home or self-care (01) ==
LOC: D.CATH 09:15
PROVIDERS: ATTEND Internal Medicine Interventional Cardiology
DX: I70.219 Atherosclerosis of native arteries of extremities with intermittent claudication, unspecified extremity (principal)

== ENCOUNTER → 2018-12-14 15:22 | Outpatient (CLI) | payer MEDICARE, MEDICAID ==
[2018-09-01 10:07] VITALS: BMI 27.6
[~2018-12-14 15:22] MED LIST changes: +FLUTICASONE PRO16 GM NASAL; +MEGACE400 MG/10 PO; +SINGULAIR10 MG PO
== END | disposition home or self-care (01) ==
LOC: D.RAD 14:00
PROVIDERS: ATTEND Family Medicine
DX: R05 Cough (principal); J44.9 Chronic obstructive pulmonary disease, unspecified

== ENCOUNTER → 2018-12-27 08:50 | Outpatient (CLI) | payer MEDICARE, MEDICAID ==
[2018-09-01 10:07] VITALS: BMI 27.6
--- NOTE | ~2018-12-27 | EC ---
PATIENT:DANAE HUA SR DATE OF SERVICE: 12/27/18 SEX: M MEDICAL RECORD: [id number] DATE OF : 40 LOCATION:[facility] AGE OF PATIENT: 78 ADMISSION DATE: 12/27/18 REFERRING PHYSICIAN: INTERPRETING PHYSICIAN: MADHURI ISABEL MD ECHOCARDIOGRAM REPORT ECHO CHARGES 4 ECHO COMPLETE Date: 12/27/18 CLINICAL DIAGNOSIS: A-FIB/LUNG CANCER H/O PVD/CAD/COPD/PACEMAKER PLACEMENT ECHOCARDIOGRAPHIC MEASUREMENTS (adult normal given) AC root (d.<3.7cm) 3.6 cm LV Septum d (<1.2 cm> 1.4 cm Valve Excursion 0.9 cm LV Septum (systole) 1.6 cm Left Atria (s.<4.0cm> 4.4 cm LVPW d(<1.2cm) 1.1 cm RV (d.<2.3cm) 2.8 cm LVPW (sytole) 1.8 cm LV diastole(<5.6CM) 4.8 cm MV E-F(>70mm/sec) cm LV systole 2.8 cm LVOT Diameter 1.9 cm MV exc.(>10mm) cm Est.ejection fraction (50-75%) % DOPPLER: LVIT cm/sec A 116 cm/sec E 61.0 cm/sec LA cm/sec RVSP 36.2 mmHg LVOT 110 cm/sec AOP1/2T m/s Asc. Ao 235 cm/sec RVOT 73.0 cm/sec RA cm/sec PA 117 cm/sec AV Gradient Peak 22.0 mmHg AV Mean 8.8 mmHg AV Area 1.3 cm MV Gradient Peak 5.9 mmHg MV Mean 2.0 mmHg MV Area cm COMMENTS: OP - HC Foreign Languages Professor: 1 CESAR JOSEPH Executive Producer Promos: 1 Dr. Isabel TAPE# PACS Pericardial Effusion N DATE OF SERVICE: 12/27/2018 FINDINGS: 1. Left ventricular chamber size is within normal limits. Left ventricular systolic function is mildly depressed at 40%. 2. Left atrium is enlarged at 4.4 cm. Right atrium is as well mildly dilated. 3. Right atrium has an echogenic structure that appears to be thrombus. 4. Valvular structures: Aortic valve demonstrates mild calcific aortic stenosis. Valve area calculates to 1.3 cm-squared with a gradient of 22 mm ECHOCARDIOGRAM REPORT [id number] DANAE HUA SR across the valve. 5. Elsewise Doppler interrogation reveals trace tricuspid regurgitation. No other valvular insufficiency or stenosis. Pulmonary systolic pressure is estimated at 36 mmHg. OVERALL IMPRESSION: 1. Mildly depressed ejection fraction at 40%. Mild aortic stenosis. 2. Echogenic structure seen in IVC and right atrium, compatible with thrombus. TRANSINT:[id number] Voice Confirmation ID: [id number] DOCUMENT ID: [id number] MADHURI ISABEL MD CC: [id number] DICTATION DATE: 12/27/18 1102 WASTEWATER PROJECT ENGINEER: 12/27/18 1212 [facility] [address] [id number]
== END | disposition home or self-care (01) ==
LOC: D.HCCARDIO 12-25 11:00
PROVIDERS: ATTEND Internal Medicine Interventional Cardiology
DX: I25.10 Atherosclerotic heart disease of native coronary artery without angina pectoris (principal)

== ENCOUNTER 2019-04-13 10:02 | Outpatient (CLI) | payer MEDICARE, MEDICAID ==
[~2019-04-13] VITALS: Ht 175.3 cm; Wt 86.8 kg
--- NOTE | ~2019-04-13 | HEMODYNAMI ---
PATIENT:DANAE HUA MEDICAL RECORD: [id number] : 40 LOCATION:[facility]ITER ADMISSION DATE: 04/13/19 Generatedon:04/13/201913:34 Patient name: DANAE HUA Patient #: [id number] SSN: : 1940 Date of study: 04/13/2019 Page: Of Hemodynamic Procedure Report Patient Data Patient Demographics Procedure consent was obtained First Name: DANAE Gender: Male Last Name: MELITA Suffix: [facility] Initial: LULÚ : 1940 Patient #: [id number] Age: 78 year(s) Race: Additional ID: [id number] Contact details Address: [address] [place] [address] State: [place] City: [facility] Zip code: [address] Past Medical History History of disease Date Diagnosis Comments Peripheral vascular disease CHF->KNIGHT CAD Hypertension Allergies Allergen Reaction Date Comments Reported Penicillins 10/08/2015 Penicillins 09/22/2016 Penicillins 10/24/2017 Penicillins 06/23/2018 Penicillins 09/01/2018 Admission Admission Data Admission Date: 04/13/2019 Admission Time: 10:02 Procedure Procedure Types Cath Procedure Diagnostic Procedure ROLANDO Procedure Description Procedure Date Procedure Date: 04/13/2019 Procedure Start Time: 13:23 Procedure End Time: 13:33 Procedure Staff Name Function Oni Isabel MD Performing Physician Darci Ibrahim RT Monitor Lona Moreno RN Nurse Jose Alejandro Cam CRNA Additional personnel Noe Rivas Network Project Manager Procedure Data Cath Procedure Fluoroscopy Diagnostic fluoroscopy Total fluoroscopy Time: 0 time: 0 min min Diagnostic fluoroscopy Total fluoroscopy dose: 0 dose: 0 mGy mGy Estimated blood loss: 0 ml Procedure Complications No complications Procedure Medications Medication Administration Route Dosage Oxygen etCO2 Nasal cannula 2 l/min Refer to Anesthesia Notes for Sedation Medications Hurricaine [place] P.O. 1 Sprays Hemodynamics Rest Pre Cath Intra NCS Post Cath Vital Signs Time Heart Resp SPO2 etCO2 NIBP (mmHg) Rhythm Pain Sedation Rate (ipm) (%) (mmHg) Status Level (bpm) 13:11:21 80 23 98 29.1 138/81(100) NSR (Missing) 10(A) 13:17:17 129 36 98 26.9 109/89(102) NSR (Missing) 10(A) 13:21:23 103 18 98 21.6 110/62(70) NSR (Missing) 10(A) 13:26:22 107 21 96 16.4 Measuring NSR (Missing) 9(A) 13:28:48 106 28 96 22.4 90/55(73) NSR (Missing) 9(A) 13:31:40 102 20 97 23.1 121/70(96) NSR (Missing) 9(A) Medications Time Medication Route Dose Verified Delivered Reason Notes Effectiv eness by by 13:10:55 Oxygen etCO2 2 Oni Zamorano used for Nasal l/min Chalo Moreno RN procedure cannula 13:11:02 Refer to Oni Zamorano Anesthesia Chalo Moreno RN Notes for Sedation Medications 13:11:12 Hurricaine P[address] Oni Zamorano Per [place] Sprays Chalo Moreno RN physician Procedure Log Time Note 12:45:58 Lona Moreno RN sent for patient. Start room use. 13:05:12 Time tracking: Regular hours (M-F 7:00 - 5:00) 13:05:16 Plan of Care:Hemodynamics will remain stable., Cardiac rhythm will remain stable., Comfort level will be maintained., Respiratory function will remain adequate., Patient/ family verbilizes understanding of procedure., Procedure tolerated without complication., Recovers from procedure without complications.. 13:05:31 Patient arrived from Pre/Post Procedure Room to CCL 3. Patient remains on bed/stretcher for procedure. 13:05:33 Signed procedure consent form obtained from patient. 13:05:34 Warm blankets applied, and umberto hugger turned on for patient comfort. 13:05:34 Correct patient and procedure confirmed by team. 13:05:35 ECG and BP/O2 sat monitors applied to patient. 13:10:07 Jose Alejandro Cam CRNA present and monitoring patient for TIVA. 13:10:17 Vital chart was started 13:10:26 Rhythm: sinus rhythm 13:10:27 Full Disclosure recording started 13:10:35 H&P Date Dictated: 04/10/2019 Within 30 days and on chart., H&P Addendum completed by physician on day of procedure. (MUST COMPLETE FOR ALL OUTPATIENTS). 13:10:35 Pre-procedure instructions explained to patient. 13:10:36 Pre-op teaching completed and patient verbalized understanding. 13:10:43 Family in patients room. 13:10:45 Patient NPO since Midnight. 13:10:47 Is the patient allergic to Iodine/contrast media? No. 13:10:49 Noe Rivas Crm Consultant present for ROLANDO. 13:10:55 Oxygen 2 l/min etCO2 Nasal cannula was administered by Lona Moreno RN; used for procedure; Verbal order read back and verified. 13:10:58 Is patient on blood thinner?Yes 13:11:02 Refer to Anesthesia Notes for Sedation Medications was administered by Lona Moreno RN; ; Verbal order read back and verified. 13:11:12 Hurricaine [place] 1 Sprays P.O. was administered by Lona Moreno RN; Per physician; Verbal order read back and verified. 13:12:08 ACC The patient was administered the following blood thiners within the last 24 hours: ACCPlavix 13:12:10 Patient diabetic? No. 13:12:12 Previous problem with sedation/anesthesia? No ? 13:12:14 Snore? Yes 13:12:34 Sleep apnea? No 13:12:36 Deviated septum? No 13:12:37 Opens mouth fully? Yes 13:12:38 Sticks out tongue? Yes 13:12:42 Airway obstruction? Yes COPD 13:12:50 Dentures? No ? 13:13:00 Patient pain scale 0/10 ?. 13:13:07 IV patent on arrival in left forearm with 0.9% NaCl at O. 13:13:09 Lab results completed and on chart. 13:13:15 Alarms reviewed by Ev Montesinos 13:21:57 --------ALL STOP TIME OUT------ 13:21:58 Final Timeout: patient, procedure, and site verified with staff and physician. All members of the team are in agreement. 13:22:17 Physical assessment completed. ASA score P 3 - A patient with severe systemic disease as per Oni Isabel MD. 13:22:22 Sedation plan: TIVA Medication:Propofol 13:23:29 Procedure started. 13:23:36 ROLANDO started. 13:27:14 ROLANDO completed. 13:27:26 Procedure ended.(Physican Out) 13:27:29 Fluoroscopy time 00.00 minutes. 13:27:30 Fluoroscopy dose: 0 mGy 13:27:30 Flurop Dose total: 0 13:27:45 Dose Area Product 0 mGy/cm. 13:27:54 Post-procedure physical assessment completed. ASA score P 3 - A patient with severe systemic disease as per Oni Isabel MD. 13:27:58 Post procedure rhythm: unchanged. 13:28:00 Estimated blood loss: 0 ml 13:28:01 Post procedure instruction explained to patient.Patient verbalizes understanding. 13:28:02 Patient needs reinforcement of post procedure teaching. 13:28:08 Procedure and supply charges have been captured, reviewed, submitted and are correct. 13:28:11 Procedure Complication : No complications 13:29:59 ROLANDO Findings: other (see MD operative note) 13:33:26 Vital chart was stopped 13:33:27 Operative report dictated upon procedure completion. 13:33:27 See physician's report for complete and final results. 13:33:29 Report given to Pre/Post Procedure Room. 13:33:33 Patient transfered to Pre/Post Procedure Room with Stretcher. 13:33:35 Procedure ended. 13:33:35 Full Disclosure recording stopped 13:33:37 End room use (Document Last) Signature Audit [place] Stage Time Signature Unsigned Intra-Procedure 04/13/2019 Darci Ibrahmi 1:30:43 PM RT(R) Intra-Procedure 04/13/2019 Lona Moreno RN 1:31:14 PM Intra-Procedure 04/13/2019 Oni Isabel 1:34:16 PM [id number] [facility] [place] [address]
[2019-04-13] MEDS ORDERED: OMNICEF300 MG PO (10:34)
[2019-04-13] MEDS ORDERED: DICLOFENAC SODI50 MG PO (10:37)
[2019-04-13] MEDS ORDERED: TESSALON PERLE100 MG PO (10:38)
[2019-04-13] MEDS ORDERED: MULTAQ400 MG PO ×2 (10:38→10:39)
[2019-04-13] MEDS ORDERED: NAMENDA5 MG PO (10:40)
[2019-04-13 10:42] VITALS: BP 137/71; Ht 175.3 cm; Wt 86.8 kg
[2019-04-13] MEDS ORDERED: HYDROCODON-ACE1 EA10 PO (10:42)
[2019-04-13] MEDS ORDERED: PHENERGAN6.25 MG/5 PO (10:42)
[2019-04-13 11:02] LABS: BASOPHILS 0.1 % (0-2); HEMATOCRIT 35.6 % (42.0-54.0); HEMOGLOBIN 11.5 g/dL (13.5-17.5); IMMATURE GRANULOCYTES 0.9 % (0-5); LYMPHOCYTES 22.9 % (15-50); MCH 30.1 pg (26.0-34.0); MCHC 32.3 g/dL (31.0-37.0); MCV 93.2 fL (80.0-100.0); MONOCYTES 9.3 % (2-11); NEUTROPHILS 64.8 % (40-80); PLATELET COUNT 271 10x3/uL (130-400); RBC 3.82 10x6/uL (4.20-6.10); RDW 15.4 % (11.5-14.5); WBC 8.1 10x3/uL (4.8-10.8)
[2019-04-13 11:09] LABS: ANION GAP 12.9 mmol/L (8-16); CALCIUM 9.3 mg/dL (8.5-10.1); CREATININE - SERUM 1.3 mg/dL (0.6-1.3); POTASSIUM - SERUM 3.9 mmol/L (3.5-5.1)
--- NOTE | 2019-04-13 14:00 | NUR ---
PATIENT RESTING, VSS ON 1L NC. NO C/O PAIN, NUMBNESS, OR TINGLING. WILL CONTINUE TO MONITOR.
--- NOTE | 2019-04-13 14:30 | NUR ---
PATIENT AWAKE, VSS ON ROOM AIR. NO C/O PAIN, NUMBNESS, OR TINGLING. PHYSICIAN PRESENT AT BEDSIDE TO UPDATE PATIENT.
--- NOTE | 2019-04-13 14:45 | NUR ---
PATIENT GIVEN ICE CHIPS, TOLERATED WITH NO DIFFICULTY SWALLOWING. PATIENT GIVEN SODA PER REQUEST, NO N/V OR DIFFICULTY SWALLOWING. VSS ON ROOM AIR. NO C/O PAIN, NUMBNESS, OR TINGLING. IV REMOVED. PATIENT VOIDED WITHOUT DIFFICULTY.
[2019-04-13] MEDS ORDERED: CYCLOBENZAPRINE5 MG PO (14:53)
[2019-04-13] MEDS ORDERED: LASIX20 MG PO (14:55)
[2019-04-13] MEDS ORDERED: SOMA350 MG PO (14:57)
[2019-04-13] MEDS ORDERED: XARELTO20 MG PO (14:58)
--- NOTE | 2019-04-13 15:00 | NUR ---
PATIENT TRANSPORTED VIA WHEELCHAIR TO CAR WITH FAMILY DRIVING, ALL BELONGINGS WITH PATIENT.
--- NOTE | 2019-04-24 11:40 | TEE ---
PATIENT:DANAE HUA MEDICAL RECORD: [id number] LOCATION:[facility] AGE OF PATIENT: 78 ADMISSION DATE: 04/13/19 SEX: M REFERRING PHYSICIAN: INTERPRETING PHYSICIAN: MADHURI ISABEL MD TRANSESOPHAGEAL ECHOCARDIOGRAM Date: 04/13/19 ROLANDO CHARGE Y INDICATIONS: ASSESS FOR THROMBUS, RA/IVC PREMEDICATIONS: PATIENT'S RESPONSE PROCEDURE DOPPLER MEASUREMENTS: LVIT LA PA RA LVOT RVOT Asc. Ao AV Gradient Peak AV Mean AV Area MV Gradient Peak MV Mean MV Area INTERPRETATION: Doppler: 2-D: COLOR FLOW DOPPLER NORMAL SALINE STUDY: MISCELLANOUS: DIAGNOSIS: PLAN: Audio Visual Equipment Rental Clerk:1 Dr. Isabel Manager Inspection: Flores ZULUAGA COMMENTS: DATE OF SERVICE: 04/13/2019 PROCEDURE: Transesophageal echo evaluation of left atrial and right atrial thrombus. IV conscious sedation per anesthesia. Continuous heart rate, O2 saturation, blood pressure monitoring all undertaken, all of which remained stable. He tolerated the procedure well. FINDINGS: 1. Left ventricular chamber size is within normal limits. Left ventricular TRANSESOPHAGEAL ECHOCARDIOGRAM REPORT [id number] DANAE HUA systolic function is mildly depressed at 40%. 2. Left atrium, right atrium, and right ventricular chamber sizes are mildly dilated. 3. Valvular structures: Aortic valve demonstrates calcific aortic stenosis that is moderate. The remaining valvular structures have normal structure and motion. 4. Doppler interrogation else [place] reveals no other valvular insufficiency or stenosis. 5. There is echogenic structure in left atrium, right atrium compatible with thrombus. TRANSINT:[id number] Voice Confirmation ID: [id number] DOCUMENT ID: [id number] at [id number] CC: [id number] DICTATION DATE: 04/13/19 1331 PRETZEL TWISTING MACHINE OPERATOR: 04/14/19 0239 DEP CLI 04/13/19 [id number] [place] [id number]
== END 2019-04-13 15:00 ==
LOC: D.CATH 10:02 → D.ECHO 12:00 → D.CATH 15:00
PROVIDERS: ATTEND Internal Medicine Interventional Cardiology
DX: I82.220 Acute embolism and thrombosis of inferior vena cava (principal); I82.890 Acute embolism and thrombosis of other specified veins

== ENCOUNTER 2019-04-27 19:00 | Inpatient (IN) | payer MEDICARE, MEDICAID ==
[~2019-04-27] VITALS: Ht 175.3 cm; Wt 91.0 kg
[~2019-04-27 19:00] MED LIST changes: +CYCLOBENZAPRINE5 MG PO; +DICLOFENAC SODI50 MG PO; +HYDROCODON-ACE1 EA10 PO; +LASIX20 MG PO; +MULTAQ400 MG PO; +PHENERGAN6.25 MG/5 PO; +SOMA350 MG PO; +TESSALON PERLE100 MG PO; +XARELTO20 MG PO
[2019-04-27 19:38] LABS: APTT 46.5 SECONDS (22.8-39.4); CALC OSMOLALITY 283 mosm/kg (275-300); CALCIUM 8.6 mg/dL (8.5-10.1); CARBON DIOXIDE 26.5 mmol/L (21.0-32.0); CHLORIDE - SERUM 103 mmol/L (98-107); GLUCOSE 139 mg/dL (74-106); INR 1.77 (0.85-1.17); POTASSIUM - SERUM 4.2 mmol/L (3.5-5.1); SODIUM 138 mmol/L (136-145); UREA NITROGEN 30 mg/dL (7-18); eGFR NON AFRICAN AMERICAN 77 mL/min (90-120)
[2019-04-27 19:43] LABS: BASOPHILS 0.1 % (0-2); EOSINOPHILS 1.1 % (0-7); HEMATOCRIT 26.2 % (42.0-54.0); HEMOGLOBIN 8.2 g/dL (13.5-17.5); IMMATURE GRANULOCYTES 1.1 % (0-5); LYMPHOCYTES 7.2 % (15-50); MCH 29.9 pg (26.0-34.0); MCHC 31.3 g/dL (31.0-37.0); MCV 95.6 fL (80.0-100.0); MEAN PLATELET VOLUME 9.9 fL (7.4-10.4); MONOCYTES 7.5 % (2-11); PLATELET COUNT 262 10x3/uL (130-400); RBC 2.74 10x6/uL (4.20-6.10); RDW 17.1 % (11.5-14.5); WBC 10.6 10x3/uL (4.8-10.8)
[2019-04-27 19:54] LABS: ALBUMIN 2.4 g/dL (3.4-5.0); ALKALINE PHOSPHATASE 52 U/L (46-116); ALT (SGPT) 34 U/L (10-68); PRO BNP 1213 pg/mL (0-450); PROTEIN - SERUM 6.7 g/dL (6.4-8.2); TROPONIN-I < 0.017 ng/mL (0.000-0.060)
[2019-04-27] MEDS ORDERED: IPRAT-ALBUT 0.5-3 ML UPD (20:29)
[2019-04-27] MEDS ORDERED: MUCINEX DM ER1 EAC1 PO ×2 (20:34→21:35)
[2019-04-27] MEDS ORDERED: MULTAQ400 MG PO (20:35)
[2019-04-27] MEDS ORDERED: NITROSTAT0.4 MG SL (20:36)
[2019-04-27] MEDS ORDERED: ZOFRAN4 MG PO (20:36)
[2019-04-27] MEDS ORDERED: SOMA350 MG (20:37)
[2019-04-27] MEDS ORDERED: ZANAFLEX4 MG ×2 (20:38→20:39)
[2019-04-27] MEDS ORDERED: POTASSIUM99 M1 PO (20:39)
--- NOTE | 2019-04-27 21:01 | NUR ---
PT REQUESTING WATER AT THIS TIME. ICE WATER PROVIDED. NO SIGNS DISTRESS. WILL CONTINUE TO MONITOR.
--- NOTE | 2019-04-27 21:20 | NUR ---
PT ARRIVED ON UNIT VIA STRETCHER ESCORTED BY ER NURSE AND SPOUSE. POSITIONED IN BED FOR COMFORT. ORIENTED TO ROOM AND CALL LIGHT.
[2019-04-27 21:36] VITALS: BP 126/63
[2019-04-27] MEDS ORDERED: MULTI-DAY VITAM1 TAB PO (21:37)
[2019-04-27] MEDS ORDERED: SPIRIVA18 MCG INH (21:39)
[2019-04-27] MEDS ORDERED: EFFER-K 25 MEQ25 MEQ PO (21:40)
--- NOTE | 2019-04-27 21:45 | NUR ---
CALLED BRANDEE ALFRED APN TO ADVISE THAT HOME MED REC WAS UPDATED.
--- NOTE | 2019-04-27 23:10 | NUR ---
CALLED BRANDEE ALFRED APN TO CLARIFY POTASSIUM ORDER.
--- NOTE | 2019-04-27 23:29 | NUR ---
HS MEDICATIONS GIVEN. MORPHINE 2 MG IVP GIVEN FOR PAIN. WILL CONTINUE TO MONITOR FOR NEEDS.
--- NOTE | 2019-04-27 23:48 | NUR ---
COLLECTED URINE AND SPUTUM FOR ORDERED STUDIES AND DELIVERED TO LAB.
[2019-04-27 23:50] LABS: APPEARANCE CLEAR (CLEAR); BILIRUBIN NEGATIVE (NEGATIVE); COLOR YELLOW (YELLOW); GLUCOSE NEGATIVE (NEGATIVE); KETONE NEGATIVE (NEGATIVE); NITRITE NEGATIVE (NEGATIVE); PROTEIN NEGATIVE (NEGATIVE)
[2019-04-28 01:52] VITALS: BP 126/63; BMI 28.8
--- NOTE | 2019-04-28 02:05 | NUR ---
ADMISSION ASSESSMENT AND HISTORY COMPLETE.
[2019-04-28 05:16] VITALS: BP 124/65
[2019-04-28 06:20] LABS: ANION GAP 14.3 mmol/L (8-16); CALCIUM 8.5 mg/dL (8.5-10.1); CARBON DIOXIDE 25.7 mmol/L (21.0-32.0); CREATININE - SERUM 1.1 mg/dL (0.6-1.3); DIGOXIN 1.21 ng/mL (0.90-2.00); MAGNESIUM - SERUM 1.7 mg/dL (1.8-2.4); PHOSPHOROUS 2.6 mg/dL (2.5-4.9)
[2019-04-28 06:21] LABS: BASOPHILS 0.1 % (0-2); HEMATOCRIT 26.4 % (42.0-54.0); HEMOGLOBIN 8.1 g/dL (13.5-17.5); IMMATURE GRANULOCYTES 1.4 % (0-5); LYMPHOCYTES 11.1 % (15-50); MCH 29.5 pg (26.0-34.0); MCHC 30.7 g/dL (31.0-37.0); MEAN PLATELET VOLUME 10.4 fL (7.4-10.4); MONOCYTES 10.5 % (2-11); NEUTROPHILS 75.9 % (40-80); PLATELET COUNT 280 10x3/uL (130-400); RBC 2.75 10x6/uL (4.20-6.10); RDW 17.3 % (11.5-14.5); WBC 10.4 10x3/uL (4.8-10.8)
--- NOTE | 2019-04-28 08:00 | NUR ---
PATIENT IN BED WITH IV INTACT. NO COMPLAINTS OR SIGNS OF DISTRESS. EYES CLOSED RESTING QUIETLY. CALL LIGHT WITHIN REACH.
[2019-04-28 08:12] VITALS: BP 114/66
--- NOTE | 2019-04-28 11:00 | NUR ---
PATIENT SITTING UP IN BED WITH EYES CLOSED RESTING. ABLE TO WAKE UP EASILY, PATIENT JUST DROWSY. IV INTACT. NO DISTRESS. CALL LIGHT WITHIN REACH.
[2019-04-28 13:33] VITALS: BP 136/63
--- NOTE | 2019-04-28 14:02 | NUR ---
NOTIFIED NURSE KAITLIN, UNABLE TO DO MRI. PATIENT HAS A PACEMAKER.
[2019-04-28 15:05] LABS: % SATURATION 11 % (15-55); IRON 28 ug/dl (35-150); TOTAL IRON BIND CAPACITY 237 ug/dl (260-445); UNSAT IRON BIND CAPACITY 209 ug/dl (150-375)
--- NOTE | 2019-04-28 15:45 | NUR ---
PATIENT TO CT
--- NOTE | 2019-04-28 16:20 | NUR ---
PATIENT BLOOD STARTED AT THIS TIME. VS STABLE, IV INTACT. NO COMPLAINTS OR SIGNS OF DISTRESS. CALL LIGHT WITHIN REACH.
--- NOTE | 2019-04-28 16:35 | NUR ---
PATIENT IN BED WITH VS STABLE. BLOOD INFUSING WITH NO PROBLEMS. IV INTACT. PATIENT RESTING WITH CALL LIGHT WITHIN REACH.
--- NOTE | 2019-04-28 18:36 | NUR ---
PATIENT BLOOD FINISHED. VS STABLE. NO COMPLAINTS OR SIGNS OF DISTRESS. IV INTACT. CALL LIGHT WITHIN REACH.
[2019-04-28 19:30] VITALS: BP 136/66
--- NOTE | 2019-04-28 21:39 | NUR ---
AROUSES EASILY TO VERBAL STIMULI. RESP EVEN AND UNLABORED.NO DISTRESS NOTED. O2 @ 2L PER NC ON. IV TO LEFT HAND INTACT WITHOUT REDNESS OR EDEMA NOTED. CL IN REACH
--- NOTE | 2019-04-28 23:16 | NUR ---
I have reviewed this patient and I concur with the Shift Assessment completed by the Licensed Practical Nurse today this shift.
[2019-04-29 00:30] VITALS: BP 138/70; BP 153/82
[2019-04-29 04:30] VITALS: BP 142/76
[2019-04-29 06:13] LABS: BASOPHILS 0.1 % (0-2); EOSINOPHILS 0.1 % (0-7); HEMOGLOBIN 9.1 g/dL (13.5-17.5); LYMPHOCYTES 8.6 % (15-50); MCH 29.6 pg (26.0-34.0); MCHC 31.4 g/dL (31.0-37.0); MCV 94.5 fL (80.0-100.0); MEAN PLATELET VOLUME 10.2 fL (7.4-10.4); MONOCYTES 7.6 % (2-11); NEUTROPHILS 80.6 % (40-80); PLATELET COUNT 263 10x3/uL (130-400); RBC 3.07 10x6/uL (4.20-6.10); RDW 16.5 % (11.5-14.5); WBC 7.4 10x3/uL (4.8-10.8)
[2019-04-29 06:49] LABS: ANION GAP 15.1 mmol/L (8-16); CALCIUM 8.7 mg/dL (8.5-10.1); CARBON DIOXIDE 24.8 mmol/L (21.0-32.0); CREATININE - SERUM 1.1 mg/dL (0.6-1.3); MAGNESIUM - SERUM 1.9 mg/dL (1.8-2.4); PHOSPHOROUS 3.6 mg/dL (2.5-4.9); POTASSIUM - SERUM 4.9 mmol/L (3.5-5.1)
[2019-04-29 08:09] VITALS: BP 137/74
--- NOTE | 2019-04-29 08:30 | NUR ---
PATIENT SITTING UP IN BED WITH IV INTACT. NO COMPLAINTS OR SIGNS OF DISTRESS. STATED HE WANTS HIS O2 OFF. REMOVED O2. WILL CHECK SATS. PATIENT MORE AWAKE AND ALERT TODAY. CALL LIGHT WITHIN REACH.
--- NOTE | 2019-04-29 08:40 | NUR ---
PATIENT SATS ON RA AT THIS TIME ARE 96 %
--- NOTE | 2019-04-29 11:30 | NUR ---
PATIENT SITTING UP IN CHAIR AT THIS TIME. NO COMPLAINTS OR PROBLEMS. IV INTACT. CALL LIGHT WITHIN REACH.
[2019-04-29 12:28] VITALS: BP 132/70
[2019-04-29 16:54] VITALS: BP 117/56
--- NOTE | 2019-04-29 18:49 | NUR ---
PATIENT IN BED WITH IV INTACT. NO COMPLAINTS OR SIGNS OF DISTRESS. DENIES PAIN. PHONE PLACED ON SHIRRING TENDER. CALL LIGHT WITHIN REACH.
[2019-04-29 19:30] VITALS: BP 131/71
--- NOTE | 2019-04-29 20:35 | NUR ---
AWAKE,ALERT.NO COMPLAITNS VOICED. RESP UNLABORED. NO DISTRESS NOTED. OW @ 2L PER NC ON. CL IN REACH
[2019-04-30 00:30] VITALS: BP 120/64
[2019-04-30 04:00] VITALS: BP 135/78
--- NOTE | 2019-04-30 04:43 | NUR ---
I have reviewed this patient and I concur with the Shift Assessment completed by the Licensed Practical Nurse today this shift.
[2019-04-30 07:52] LABS: BASOPHILS 0 % (0-2); EOSINOPHILS 0 % (0-7); HEMATOCRIT 28.1 % (42.0-54.0); HEMOGLOBIN 8.9 g/dL (13.5-17.5); IMMATURE GRANULOCYTES 4.3 % (0-5); MCH 29.4 pg (26.0-34.0); MCHC 31.7 g/dL (31.0-37.0); MCV 92.7 fL (80.0-100.0); MEAN PLATELET VOLUME 10.2 fL (7.4-10.4); MONOCYTES 9.4 % (2-11); NEUTROPHILS 78.3 % (40-80); RBC 3.03 10x6/uL (4.20-6.10); RDW 16.3 % (11.5-14.5)
[2019-04-30 07:53] LABS: ANION GAP 14.7 mmol/L (8-16); CALCIUM 8.6 mg/dL (8.5-10.1); CARBON DIOXIDE 25.8 mmol/L (21.0-32.0); CREATININE - SERUM 1.2 mg/dL (0.6-1.3); MAGNESIUM - SERUM 2.1 mg/dL (1.8-2.4); PHOSPHOROUS 3.2 mg/dL (2.5-4.9); POTASSIUM - SERUM 4.5 mmol/L (3.5-5.1)
[2019-04-30 08:11] LABS: PLATELET COUNT 336 10x3/uL (130-400); WBC 10.1 10x3/uL (4.8-10.8)
[2019-04-30 08:51] VITALS: BP 122/68
--- NOTE | 2019-04-30 09:00 | NUR ---
ASSESSMENT PER FLOW SHEET. PT IS WITHOUT DISTRESS.FALL PREVENTION IN PLACE.MONITOR FOR NEEDS.
[2019-04-30 12:30] VITALS: BP 131/75
[2019-04-30 15:10] VITALS: BMI 29.6
[2019-04-30 16:21] VITALS: BP 124/69
--- NOTE | 2019-04-30 18:36 | NUR ---
REMAINS WITHOUT NEEDS.CONT PLAN OF CARE
[2019-04-30 19:30] VITALS: BP 131/74
--- NOTE | 2019-04-30 23:32 | NUR ---
A&O X 4. SPO2 IS 97% ON 2L. PRODUCTIVE COUGH NOTED. CRACKLES HEARD BILATERALLY, INSPIRATORY WHEEZES NOTED TO RIGHT SIDE. PT DENIES NEEDS AT THIS TIME, WILL CONTINUE TO MONITOR
[2019-05-01 00:30] VITALS: BP 137/71
--- NOTE | 2019-05-01 03:37 | NUR ---
I have reviewed this patient and I concur with the Shift Assessment completed by the Licensed Practical Nurse today this shift.
[2019-05-01 04:30] VITALS: BP 141/68
[2019-05-01 07:57] LABS: BASOPHILS 0.2 % (0-2); EOSINOPHILS 0.1 % (0-7); HEMATOCRIT 32.6 % (42.0-54.0); HEMOGLOBIN 10.3 g/dL (13.5-17.5); IMMATURE GRANULOCYTES 7.9 % (0-5); LYMPHOCYTES 7.6 % (15-50); MCH 29.6 pg (26.0-34.0); MCHC 31.6 g/dL (31.0-37.0); MCV 93.7 fL (80.0-100.0); MONOCYTES 7.9 % (2-11); NEUTROPHILS 76.3 % (40-80); PLATELET COUNT 396 10x3/uL (130-400); RBC 3.48 10x6/uL (4.20-6.10); RDW 16.1 % (11.5-14.5); WBC 11.7 10x3/uL (4.8-10.8)
[2019-05-01 08:15] LABS: ANION GAP 13.1 mmol/L (8-16); CALCIUM 8.8 mg/dL (8.5-10.1); CARBON DIOXIDE 26.7 mmol/L (21.0-32.0); CREATININE - SERUM 1.3 mg/dL (0.6-1.3); MAGNESIUM - SERUM 2.2 mg/dL (1.8-2.4); PHOSPHOROUS 3.4 mg/dL (2.5-4.9); POTASSIUM - SERUM 4.8 mmol/L (3.5-5.1)
[2019-05-01 08:27] VITALS: BP 142/86
--- NOTE | 2019-05-01 09:00 | NUR ---
ASSESSMENT PER FLOW SHEET. PT IS WITHOUT DISTRESS.MONITOR FOR NEEDS.
--- NOTE | 2019-05-01 12:11 | MORECARE ---
CASE MANAGEMENT DISCHARGE SUMMARY PATIENT: DANAE HUA UNIT: [id number] ADM DATE: 04/27/19 AGE: 78 : 40 SEX: M ROOM/BED: D.2225 AUTHOR: HEVER CAMPO PHYSICIAN: REFERRING PHYSICIAN: BANDAR HARTMAN DO DATE OF SERVICE: 05/01/19 Discharge Plan Patient Name: DA[facility] HUA [facility] [facility] 1940 Planned Disposition: Home with Home Health Anticipated Discharge Date: Discharge Date: Expected LOS: Initial Reviewer: [email or web address] Initial Review Date: 05/01/2019 Generated: 05/01/19 1:11 pm Patient Name: DANAE HUA Page [id number] at 1211 All edits/amendments must be made on the electronic document DICTATION DATE: 05/01/19 1211 TEST DESK OPERATOR: GARCIA 05/01/19 1211 RPT#: [id number] DC DATE: STATUS: ADM IN [facility] [address] [place] [address] END OF REPORT
[2019-05-01 12:18] VITALS: BP 135/79
--- NOTE | 2019-05-01 12:20 | MORECARE ---
CASE MANAGEMENT DISCHARGE SUMMARY PATIENT: DANAE SUAZO UNIT: [id number] ADM DATE: 04/27/19 AGE: 78 : 40 SEX: M ROOM/BED: D.2225 AUTHOR: HEVER CAMPO PHYSICIAN: REFERRING PHYSICIAN: BANDAR HARTMAN DO DATE OF SERVICE: 05/01/19 Discharge Plan Patient Name: DANAE SUAZO Facility: [facility]:[place] : 1940 Planned Disposition: Home with Home Health Anticipated Discharge Date: Discharge Date: Expected LOS: Initial Reviewer: [email or web address] Initial Review Date: 05/01/2019 Generated: 05/01/19 1:20 pm Comments DCP- Discharge Planning Updated by [email or web address]: Michelle Contreras on 05/01/19 11:[address] Patient Name: DANAE SUAZO Admission Status: ER Accout number: [id number] Admission Date: 04-27-2019 : 1940 Admission Diagnosis: Attending: BANDAR HARTMAN Current LOS: 4 Anticipated DC Date: Planned Disposition: Home with Home Health Primary Insurance: [facility] MEDICARE SOLUTIONS Discharge Planning Comments: CM met with patient to discuss discharge planning, he is alone in the room. States he lives with his in a single story home. He has home health and uses a hospice agency, but cannot tell me which ones, he states to call his for the names. He has oxygen, nebulizer and portable oxygen from [facility]. He plans on returning home with home health. I spoke with his and she states he is to return home with resumption of [facility] for PT and he uses [facility] for palliative care. He is not on Hospice at this time. States his son will take him home at discharge. CM will continue to follow and assist with discharge planning/needs. Commissioner Conservation Of Resources: Michelle Contreras DCPIA - Discharge Planning Initial Assessment Updated by [id number]: Michelle Contreras on 05/01/19 12:13 pm * Is the patient Alert and Oriented? Yes * How many steps to enter\exit or inside your home? Ramp/0 * PCP Dr. Tapia * Pharmacy [facility] on [facility] * Preadmission Environment Home with Family * ADLs Partial Dependent * Partial ADLs (Assistance needed) Ambulation Medication Management * Equipment Cane Nebulizer Other Oxygen Walker * Other Equipment Portable Oxygen * List name and contact numbers for known caregivers / representatives who currently or will assist patient after discharge: Olga - - [phone] Roz Mena - DTR - [phone] Jose - son - [phone] * Verbal permission to speak to the caregivers and representatives has been obtained from the patient. Yes * Community resources currently utilized Home Health Other * Please name any agencies selected above. [facility] * Additional services required to return to the preadmission environment? No * Can the patient safely return to the preadmission environment? Yes * Has this patient been hospitalized within the prior 30 days at any hospital? No Coverage Notice Reviewer: [id number] Hawk Contreras Notice Issued Date-Time: 05/01/2019 12:16 Notice Type: Patient Choice Letter Notice Delivered To: Family Member Relationship to Patient: Spouse Public Works Supervisor Name: Olga Suazo Delivery Method: PHONE - Phone Pooja Days: Prior Verbal Notification: Recipient Understood Notice: Yes Recipient Signature: Med Rec Note Co-signed by Attending: Coverage Notice Comment: BECCA for [facility] and [facility] Last DP export: 05/01/19 11:11 a Patient Name: DANAE SUAZO Page [id number] at 1220 All edits/amendments must be made on the electronic document DICTATION DATE: 05/01/19 1220 AIRCRAFT INSPECTOR: GARCIA 05/01/19 1220 RPT#: [id number] DC DATE: STATUS: ADM IN [facility] [address] [place] [address] END OF REPORT
[2019-05-01 17:14] VITALS: BP 147/76
--- NOTE | 2019-05-01 19:31 | NUR ---
REMAINS WITHOUT NEEDS,WITHOUT CHANGE.CONT PLAN OF CARE
[2019-05-01 20:24] VITALS: BP 129/69
--- NOTE | 2019-05-01 20:50 | NUR ---
LYING IN BED. ALERT AND ORIENTED. RESP IRREG. SOB WITH MIN EXERTION. O2 @ 2L/NC. REPORTS PROD COUGH WITH CLEAR SPUTUM. BRUISES NOTED TO BUE. AMB WITH ASSIST X1. SARAH ALARM ON FOR PT SAFETY. TELEMETRY SHOWS PACED AT 74. NS @ 10 MLHR INFUSING IN LT WRIST WITHOUT DIFF. DENIES PAIN. NO DISTRESS. HOB ELEVATED. SR ELEVATED X2. CL IN REACH.
[2019-05-02 01:07] VITALS: BP 133/73
--- NOTE | 2019-05-02 01:46 | NUR ---
LYING IN BED WATCHING TV. NO DISTRESS. SR ELEVATED X2. CL IN REACH.
[2019-05-02 05:09] VITALS: BP 160/88
[2019-05-02 06:14] LABS: BASOPHILS 0.1 % (0-2); EOSINOPHILS 0 % (0-7); HEMOGLOBIN 10.1 g/dL (13.5-17.5); IMMATURE GRANULOCYTES 8.8 % (0-5); LYMPHOCYTES 7.5 % (15-50); MCH 29.4 pg (26.0-34.0); MCHC 31.6 g/dL (31.0-37.0); MEAN PLATELET VOLUME 9.6 fL (7.4-10.4); MONOCYTES 6.7 % (2-11); NEUTROPHILS 76.9 % (40-80); PLATELET COUNT 373 10x3/uL (130-400); RBC 3.44 10x6/uL (4.20-6.10); RDW 15.8 % (11.5-14.5); WBC 13.5 10x3/uL (4.8-10.8)
[2019-05-02 06:47] LABS: ANION GAP 15.2 mmol/L (8-16); CALCIUM 8.6 mg/dL (8.5-10.1); CARBON DIOXIDE 25.7 mmol/L (21.0-32.0); CREATININE - SERUM 1.1 mg/dL (0.6-1.3); MAGNESIUM - SERUM 2.3 mg/dL (1.8-2.4); PHOSPHOROUS 3.7 mg/dL (2.5-4.9); POTASSIUM - SERUM 4.9 mmol/L (3.5-5.1)
[2019-05-02 07:59] VITALS: BP 135/75
--- NOTE | 2019-05-02 08:00 | NUR ---
PATIENT IN BED WITH IV INACT. NO COMPLAINTS OR SIGNS OF DISTRESS. CALL LIGHT WITHIN REACH.
[2019-05-02 11:37] VITALS: BP 150/76
[2019-05-02 17:01] VITALS: BP 136/71
--- NOTE | 2019-05-02 18:45 | NUR ---
PATIENT SITTING UP IN BED WITH IV INTACT. NO COMPLAINTS OR SIGNS OF DISTRESS. CALL LIGHT WITHIN REACH.
[2019-05-02 21:00] VITALS: BP 140/69
--- NOTE | 2019-05-02 21:33 | NUR ---
Patient is alert and orented able to voice needs and wants to staff,O2 at 2l via n/c. IV to left hand wth n/s at 10 L/hr. no redness noted at site denises pain at this time. Telemetry , fall precation in place, incentive spirometery fluter vave.
--- NOTE | 2019-05-03 00:22 | NUR ---
CALL AND ASK FOR A MARKET DIRECTOR CONSULATION.
[2019-05-03 01:18] VITALS: BP 146/76
[2019-05-03 04:22] VITALS: BP 134/73
[2019-05-03 09:22] VITALS: BP 119/75
[2019-05-03 12:28] VITALS: BP 114/71
[2019-05-03 13:06] LABS: HEMATOCRIT 35.1 % (42.0-54.0); HEMOGLOBIN 11.3 g/dL (13.5-17.5); MCH 29.7 pg (26.0-34.0); MCHC 32.2 g/dL (31.0-37.0); MCV 92.1 fL (80.0-100.0); MEAN PLATELET VOLUME 9.4 fL (7.4-10.4); PLATELET COUNT 474 10x3/uL (130-400); RBC 3.81 10x6/uL (4.20-6.10); RDW 15.5 % (11.5-14.5); WBC 19.6 10x3/uL (4.8-10.8)
[2019-05-03 13:28] LABS: LYMPHOCYTES 6 % (15-50); MONOCYTES 1 % (2-11); NEUTROPHILS 93 % (40-80)
[2019-05-03 13:29] LABS: PLATELET ESTIMATE INCREASED
--- NOTE | 2019-05-03 14:13 | NUR ---
Nutrition follow-up Diet: low sodium PO intake ~55% average of last 9 meals Labs reviewed Wt: 200# +BM Will continue to provide food choices and honor food preferences. Will offer nutritional supplements. RDN following.
[2019-05-03 16:29] VITALS: BP 114/68
[2019-05-03 16:50] VITALS: Ht 175.3 cm; Wt 91.0 kg
--- NOTE | 2019-05-03 18:45 | NUR ---
PATIENT SITTING UP IN BED WITH EYES CLOSED RESTING QUIETLY. IV INTACT. NO COMPLAINTS. CALL LIGHT WITHIN REACH.
[2019-05-03 20:00] VITALS: BP 115/70
--- NOTE | 2019-05-03 21:18 | NUR ---
PATIENT IS ALERT AND ORENTED ABLE TO VOICE NEEDS AND WANTSTO STAFF. PLESENT,. FAMILY AT BEDSIDE, FALL PRECAUTION IN PLACE, TELEMETRY IN PLACE, INCENTIVE SPIROMETERY IN REACH AT BESIDE. WATER IN REACH. IV TO LEFT HAND INTACT WITH NO REDNESS NOTED DENIES PAIN AT SITE. CALL LIGHT IN REACH.
[2019-05-04 04:00] VITALS: BP 113/85
[2019-05-04 06:29] LABS: BASOPHILS 0.1 % (0-2); EOSINOPHILS 0.1 % (0-7); HEMATOCRIT 35.4 % (42.0-54.0); HEMOGLOBIN 11.3 g/dL (13.5-17.5); IMMATURE GRANULOCYTES 5.6 % (0-5); LYMPHOCYTES 5.9 % (15-50); MCH 29.6 pg (26.0-34.0); MCHC 31.9 g/dL (31.0-37.0); MCV 92.7 fL (80.0-100.0); MEAN PLATELET VOLUME 9.6 fL (7.4-10.4); NEUTROPHILS 83.3 % (40-80); PLATELET COUNT 526 10x3/uL (130-400); RBC 3.82 10x6/uL (4.20-6.10); RDW 15.9 % (11.5-14.5); WBC 18.5 10x3/uL (4.8-10.8)
[2019-05-04 06:50] LABS: ANION GAP 12.2 mmol/L (8-16); CALCIUM 8.7 mg/dL (8.5-10.1); CARBON DIOXIDE 29.1 mmol/L (21.0-32.0); CREATININE - SERUM 1.2 mg/dL (0.6-1.3); POTASSIUM - SERUM 5.3 mmol/L (3.5-5.1)
--- NOTE | 2019-05-04 07:23 | NUR ---
AWAKE AND ALERT. ORIENTED X3. NO C/O AT THIS TIME. LUNGS ARE CLEAR BUT DIMINISHED THROUGHOUT, OCCASSIONAL PRODUCTIVE COUGH NOTED. SKIN IS INTACT WITHOUT REDNESS. SL TO LEFT HAND IS PATENT WITHOUT REDNESS AT INSERTION SITE. DENIES NEEDS.
[2019-05-04 08:06] VITALS: BP 121/78
[2019-05-04 08:29] LABS: APPEARANCE CLEAR (CLEAR); BILIRUBIN NEGATIVE (NEGATIVE); COLOR YELLOW (YELLOW); GLUCOSE NEGATIVE (NEGATIVE); KETONE NEGATIVE (NEGATIVE); NITRITE NEGATIVE (NEGATIVE); PROTEIN NEGATIVE (NEGATIVE); UROBILINOGEN NORMAL (NORMAL)
--- NOTE | 2019-05-04 09:15 | NUR ---
BREAKFAST TRAY REHEATED PER STAFF. ATE ALMOST ALL OF TRAY. TOOK AM MEDS WITHOUT DIFFICUTLY. DENIES NEEDS.
[2019-05-04] MEDS ORDERED: LEVOFLOXAC500 MG/100 IV (12:43)
[2019-05-04 12:44] VITALS: BP 129/89
[2019-05-04] MEDS ORDERED: PREDNISONE10 MG PO (13:03)
--- NOTE | 2019-05-04 13:07 | MORECARE ---
CASE MANAGEMENT DISCHARGE SUMMARY PATIENT: DANAE SUAZO UNIT: [id number] ADM DATE: 04/27/19 AGE: 78 : 40 SEX: M ROOM/BED: D.2225 AUTHOR: HEVER CAMPO PHYSICIAN: REFERRING PHYSICIAN: BANDAR HARTMAN DO DATE OF SERVICE: 05/04/19 Discharge Plan Patient Name: DANAE SUAZO Facility: [facility]:[place] : 1940 Planned Disposition: Home with Home Health Anticipated Discharge Date: Discharge Date: Expected LOS: Initial Reviewer: [email or web address] Initial Review Date: 05/01/2019 Generated: 05/04/19 2:06 pm DCP- Discharge Planning Updated by [email or web address]: Michelle Contreras on 05/01/19 11:[address] Patient Name: DANAE SUAZO Admission Status: ER Accout number: [id number] Admission Date: 04-27-2019 : 1940 Admission Diagnosis: Attending: BANDAR HARTMAN Current LOS: 4 Anticipated DC Date: Planned Disposition: Home with Home Health Primary Insurance: [facility] MEDICARE SOLUTIONS Discharge Planning Comments: CM met with patient to discuss discharge planning, he is alone in the room. States he lives with his in a single story home. He has home health and uses a hospice agency, but cannot tell me which ones, he states to call his for the names. He has oxygen, nebulizer and portable oxygen from [facility]. He plans on returning home with home health. I spoke with his and she states he is to return home with resumption of [facility] for PT and he uses [facility] for palliative care. He is not on Hospice at this time. States his son will take him home at discharge. CM will continue to follow and assist with discharge planning/needs. Employment Case Manager: Michelle Contreras DCPIA - Discharge Planning Initial Assessment Updated by [id number]: Michelle Contreras on 05/01/19 12:13 pm * Is the patient Alert and Oriented? Yes * How many steps to enter\exit or inside your home? Ramp/0 * PCP Dr. Tapia * Pharmacy [facility] on [facility] * Preadmission Environment Home with Family * ADLs Partial Dependent * Partial ADLs (Assistance needed) Ambulation Medication Management * Equipment Cane Nebulizer Other Oxygen Walker * Other Equipment Portable Oxygen * List name and contact numbers for known caregivers / representatives who currently or will assist patient after discharge: Olga - miguel angel - [phone] Roz Mena - DTR - [phone] Jose temple - [phone] * Verbal permission to speak to the caregivers and representatives has been obtained from the patient. Yes * Community resources currently utilized Home Health Other * Please name any agencies selected above. [facility] home health for PT * Additional services required to return to the preadmission environment? No * Can the patient safely return to the preadmission environment? Yes * Has this patient been hospitalized within the prior 30 days at any hospital? No External Providers [facility] Next Contact Date: Service Request Date: Service Type: Resolution: Reviewer: Comments: Coverage Notice Reviewer: [id number] Hawk Contreras Notice Issued Date-Time: 05/01/2019 12:16 Notice Type: Patient Choice Letter Notice Delivered To: Family Member Relationship to Patient: Spouse Clinic Assistant Name: Olga Suazo Delivery Method: PHONE - Phone Pooja Days: Prior Verbal Notification: Recipient Understood Notice: Yes Recipient Signature: Med Rec Note Co-signed by Attending: Coverage Notice Comment: BECCA for [facility] and [facility] Reviewer: [id number] Contreras Notice Issued Date-Time: 05/03/2019 12:20 Notice Type: IM Discharge Notice Notice Delivered To: Patient Relationship to Patient: Self Clinic Assistant Name: Delivery Method: HAND - Hand Delivered Pooja Days: Prior Verbal Notification: Recipient Understood Notice: Yes Recipient Signature: Yes Med Rec Note Co-signed by Attending: Coverage Notice Comment: IMM explained, signed, given, copy placed in MR Last DP export: 05/01/19 11:20 a Patient Name: DANAE SUAZO Page [phone] at 1307 All edits/amendments must be made on the electronic document DICTATION DATE: 05/04/19 1306 CRUSHER AND BINDER OPERATOR: GARCIA 05/04/19 1306 RPT#: [id number] DC DATE: STATUS: ADM IN [facility] [address] [place] [address] END OF REPORT
--- NOTE | 2019-05-04 13:40 | MORECARE ---
CASE MANAGEMENT DISCHARGE SUMMARY PATIENT: DANAE SUAZO UNIT: [id number] ADM DATE: 04/27/19 AGE: 78 : 40 SEX: M ROOM/BED: D.2225 AUTHOR: HEVER CAMPO PHYSICIAN: REFERRING PHYSICIAN: BANDAR HARTMAN DO DATE OF SERVICE: 05/04/19 Discharge Plan Patient Name: DANAE SUAZO Facility: [facility]:[place] : 1940 Planned Disposition: Home with Home Health Anticipated Discharge Date: Discharge Date: Expected LOS: Initial Reviewer: [email or web address] Initial Review Date: 05/01/2019 Generated: 05/04/19 2:40 pm Comments DCP- Discharge Planning Updated by [email or web address]: Michelle Contreras on 05/04/19 12:[address] Patient Name: DANAE SUAZO Encounter No: [id number] : 1940 Primary Insurance: [facility] MEDICARE SOLUTIONS Anticipated DC Date: Planned Disposition: Home with Home Health External Planned Provider: : DCP follow-up note: Patient and family in agreement with discharge plan. No changes to plan. I called Nikki Smith with [facility] and he will be back on the schedule for palliative care. I called Darci with [facility] and they will put him back on the schedule, clinical and resumption order faxed. Case management will follow and assist as needed. Michelle Contreras DCP- Discharge Planning Updated by [email or web address]: Michelle Contreras on 05/01/19 11:[address] Patient Name: DANAE SUAZO Admission Status: ER Accout number: [id number] Admission Date: 04-27-2019 : 1940 Admission Diagnosis: Attending: BANDAR HARTMAN Current LOS: 4 Anticipated DC Date: Planned Disposition: Home with Home Health Primary Insurance: [facility] MEDICARE SOLUTIONS Discharge Planning Comments: CM met with patient to discuss discharge planning, he is alone in the room. States he lives with his in a single story home. He has home health and uses a hospice agency, but cannot tell me which ones, he states to call his for the names. He has oxygen, nebulizer and portable oxygen from [facility]. He plans on returning home with home health. I spoke with his and she states he is to return home with resumption of [facility] for PT and he uses [facility] for palliative care. He is not on Hospice at this time. States his son will take him home at discharge. CM will continue to follow and assist with discharge planning/needs. Box Spinner: Michelle Contreras DCPIA - Discharge Planning Initial Assessment Updated by [email or web address]: Michelle Contreras on 05/01/19 12:13 pm * Is the patient Alert and Oriented? Yes * How many steps to enter\exit or inside your home? Ramp/0 * PCP Dr. Tapia * Pharmacy [facility] * Preadmission Environment Home with Family * ADLs Partial Dependent * Partial ADLs (Assistance needed) Ambulation Medication Management * Equipment Cane Nebulizer Other Oxygen Walker * Other Equipment Portable Oxygen * List name and contact numbers for known caregivers / representatives who currently or will assist patient after discharge: Olga - - [phone] Roz Mena - DTR - [phone] Jose - son - [phone] * Verbal permission to speak to the caregivers and representatives has been obtained from the patient. Yes * Community resources currently utilized Home Health Other * Please name any agencies selected above. [facility] * Additional services required to return to the preadmission environment? No * Can the patient safely return to the preadmission environment? Yes * Has this patient been hospitalized within the prior 30 days at any hospital? No External Providers External Provider: [facility] Next Contact Date: Service Request Date: Service Type: Resolution: Reviewer: Comments: Coverage Notice Reviewer: [email or web address] Hawk Contreras Notice Issued Date-Time: 05/01/2019 12:16 Notice Type: Patient Choice Letter Notice Delivered To: Family Member Relationship to Patient: Spouse Electrical And Instrumentation Mechanic Name: Olga Suazo Delivery Method: PHONE - Phone Pooja Days: Prior Verbal Notification: Recipient Understood Notice: Yes Recipient Signature: Med Rec Note Co-signed by Attending: Coverage Notice Comment: BECCA for [facility] Reviewer: [id number] Hawk Contreras Notice Issued Date-Time: 05/03/2019 12:20 Notice Type: IM Discharge Notice Notice Delivered To: Patient Relationship to Patient: Self Electrical And Instrumentation Mechanic Name: Delivery Method: HAND - Hand Delivered Pooja Days: Prior Verbal Notification: Recipient Understood Notice: Yes Recipient Signature: Yes Med Rec Note Co-signed by Attending: Coverage Notice Comment: IMM explained, signed, given, copy placed in MR Last DP export: 05/04/19 12:07 p Patient Name: DANAE SUAZO Page [id number] at 1340 All edits/amendments must be made on the electronic document DICTATION DATE: 05/04/19 1340 BUS TROLLEY AND TAXI INSTRUCTOR: GARCIA 05/04/19 1340 RPT#: [id number] DC DATE: STATUS: ADM IN [facility] [address] [place] [address] END OF REPORT
--- NOTE | 2019-05-04 13:50 | MORECARE ---
CASE MANAGEMENT DISCHARGE SUMMARY PATIENT: DANAE SUAZO UNIT: [id number] ADM DATE: 04/27/19 AGE: 78 : 40 SEX: M ROOM/BED: D.2225 AUTHOR: HEVER CAMPO PHYSICIAN: REFERRING PHYSICIAN: BANDAR HARTMAN DO DATE OF SERVICE: 05/04/19 Discharge Plan Patient Name: DANAE SUAZO Facility: [facility]:[place] : 1940 Planned Disposition: Home with Home Health Anticipated Discharge Date: Discharge Date: Expected LOS: Initial Reviewer: [id number] Initial Review Date: 05/01/2019 Generated: 05/04/19 2:50 pm Comments DCP- Discharge Planning Updated by [id number]: Michelle Contreras on 05/04/19 12:[address] I spoke with Arie concerning new nebulizer medicine and faxed her Dr. Mccall's new med order (on CM consult). States she will check nebulizer medications and get a DWO for new meds. CM will continue to follow and assist with discharge planning/needs. DCP- Discharge Planning Updated by [id number]: Michelle Contreras on 05/04/19 12:[address] Patient Name: DANAE SUAZO Encounter No: [id number] : 1940 Primary Insurance: [employer] Anticipated DC Date: Planned Disposition: Home with Home Health External Planned Provider: : DCP follow-up note: Patient and family in agreement with discharge plan. No changes to plan. I called Nikki Smith with [facility] and he will be back on the schedule for palliative care. I called Darci with [facility] home health and they will put him back on the schedule, clinical and resumption order faxed. Case management will follow and assist as needed. Michelle Contreras DCP- Discharge Planning Updated by [email or web address]: Michelle Contreras on 05/01/19 11:[address] Patient Name: DANAE SUAZO Admission Status: ER Accout number: [id number] Admission Date: 04-27-2019 : 1940 Admission Diagnosis: Attending: BANDAR HARTMAN Current LOS: 4 Anticipated DC Date: Planned Disposition: Home with Home Health Primary Insurance: [facility] MEDICARE SOLUTIONS Discharge Planning Comments: CM met with patient to discuss discharge planning, he is alone in the room. States he lives with his in a single story home. He has home health and uses a hospice agency, but cannot tell me which ones, he states to call his for the names. He has oxygen, nebulizer and portable oxygen from [facility]. He plans on returning home with home health. I spoke with his and she states he is to return home with resumption of [facility] for PT and he uses [facility] for palliative care. He is not on Hospice at this time. States his son will take him home at discharge. CM will continue to follow and assist with discharge planning/needs. Strap Sewer: Michelle Contreras DCPIA - Discharge Planning Initial Assessment Updated by [email or web address]: Michelle Contreras on 05/01/19 12:13 pm * Is the patient Alert and Oriented? Yes * How many steps to enter\exit or inside your home? Ramp/0 * PCP Dr. Tapia * Pharmacy [facility] on [facility] * Preadmission Environment Home with Family * ADLs Partial Dependent * Partial ADLs (Assistance needed) Ambulation Medication Management * Equipment Cane Nebulizer Other Oxygen Walker * Other Equipment Portable Oxygen * List name and contact numbers for known caregivers / representatives who currently or will assist patient after discharge: Olga - - [phone] Roz Mena - DTR - [phone] Jose - son - [phone] * Verbal permission to speak to the caregivers and representatives has been obtained from the patient. Yes * Community resources currently utilized Home Health Other * Please name any agencies selected above. [facility] * Additional services required to return to the preadmission environment? No * Can the patient safely return to the preadmission environment? Yes * Has this patient been hospitalized within the prior 30 days at any hospital? No Coverage Notice Reviewer: [id number] - Michelle Contreras Notice Issued Date-Time: 05/01/2019 12:16 Notice Type: Patient Choice Letter Notice Delivered To: Family Member Relationship to Patient: Spouse Estate Planner Name: Olga Suazo Delivery Method: PHONE - Phone Pooja Days: Prior Verbal Notification: Recipient Understood Notice: Yes Recipient Signature: Med Rec Note Co-signed by Attending: Coverage Notice Comment: [facility] for [facility] Reviewer: [id number] Hawk Contreras Notice Issued Date-Time: 05/03/2019 12:20 Notice Type: IM Discharge Notice Notice Delivered To: Patient Relationship to Patient: Self Estate Planner Name: Delivery Method: HAND - Hand Delivered Pooja Days: Prior Verbal Notification: Recipient Understood Notice: Yes Recipient Signature: Yes Med Rec Note Co-signed by Attending: Coverage Notice Comment: IMM explained, signed, given, copy placed in MR Last DP export: 05/04/19 12:40 p Patient Name: DANAE SUAZO Page [id number] at 1350 All edits/amendments must be made on the electronic document DICTATION DATE: 05/04/19 1350 PLASTIC TOOL MAKER: GARCIA 05/04/19 1350 RPT#: [id number] DC DATE: STATUS: ADM IN [facility] [address] [place] [address] END OF REPORT
[2019-05-04] MEDS ORDERED: LEVAQUIN750 MG PO (13:59)
[2019-05-04] MEDS ORDERED: PULMICORT0.5 MG/21 INH (14:29)
[2019-05-04] MEDS ORDERED: BROVANA15 MCG/2 M INH (14:30)
--- NOTE | 2019-05-04 16:05 | NUR ---
DISCHARGED TO HOME AMBULATORY WITH FAMILY. DISCHARGE INSTRUCTIONS GIVEN BOTH VERBALLY AND WRITTEN. ALL QUESTIONS ANSWERED. PATIENT AND SON VERBALIZED UNDERSTANDING OF SAME. NEEDED PRESCRIPTIONS GIVEN TO PATIENT. SL TO LEFT HAND D/C WITH CATHETER INTACT. ALL BELONGINGS WITH PATIENT.
--- NOTE | 2019-05-04 16:32 | MORECARE ---
CASE MANAGEMENT DISCHARGE SUMMARY PATIENT: DANAE SUAZO UNIT: [id number] ADM DATE: 04/27/19 AGE: 78 : 40 SEX: M ROOM/BED: D.2225 AUTHOR: HEVER CAMPO PHYSICIAN: REFERRING PHYSICIAN: BANDAR HARTMAN DO DATE OF SERVICE: 05/04/19 Discharge Plan Patient Name: DANAE SUAZO Facility: [facility]:[place] : 1940 Planned Disposition: Home with Home Health Anticipated Discharge Date: Discharge Date: Expected LOS: Initial Reviewer: [email or web address] Initial Review Date: 05/01/2019 Generated: 05/04/19 5:31 pm Comments DCP- Discharge Planning Updated by [id number]: Michelle Contreras on 05/04/19 3:[address] TRANSIT SURVEY WORKER FAXED TO [facility]. DCP- Discharge Planning Updated by [id number]: Michelle Contreras on 05/04/19 12:[address] I spoke with Arie concerning new nebulizer medicine and faxed her Dr. Mccall's new med order (on CM consult). States she will check nebulizer medications and get a DWO for new meds. CM will continue to follow and assist with discharge planning/needs. DCP- Discharge Planning Updated by [id number]: Michelle Contreras on 05/04/19 12:[address] Patient Name: DANAE SUAZO Encounter No: [id number] : 1940 Primary Insurance: [employer] Anticipated DC Date: Planned Disposition: Home with Home Health External Planned Provider: : DCP follow-up note: Patient and family in agreement with discharge plan. No changes to plan. I called Nikki Smith with [facility] and he will be back on the schedule for palliative care. I called Darci with [facility] home health and they will put him back on the schedule, clinical and resumption order faxed. Case management will follow and assist as needed. Michelle Contreras DCP- Discharge Planning Updated by [email or web address]: Michelle Contreras on 05/01/19 11:[address] Patient Name: DANAE SUAZO Admission Status: ER Accout number: [id number] Admission Date: 04-27-2019 : 1940 Admission Diagnosis: Attending: BANDAR HARTMAN Current LOS: 4 Anticipated DC Date: Planned Disposition: Home with Home Health Primary Insurance: [employer] Discharge Planning Comments: CM met with patient to discuss discharge planning, he is alone in the room. States he lives with his in a single story home. He has home health and uses a hospice agency, but cannot tell me which ones, he states to call his for the names. He has oxygen, nebulizer and portable oxygen from [facility]. He plans on returning home with home health. I spoke with his and she states he is to return home with resumption of [facility] for PT and he uses [facility] for palliative care. He is not on Hospice at this time. States his son will take him home at discharge. CM will continue to follow and assist with discharge planning/needs. Access Analyst: Michelle Contreras DCPIA - Discharge Planning Initial Assessment Updated by [email or web address]: Michelle Contreras on 05/01/19 12:13 pm * Is the patient Alert and Oriented? Yes * How many steps to enter\exit or inside your home? Ramp/0 * PCP Dr. Tapia * Pharmacy [facility] on [facility] * Preadmission Environment Home with Family * ADLs Partial Dependent * Partial ADLs (Assistance needed) Ambulation Medication Management * Equipment Cane Nebulizer Other Oxygen Walker * Other Equipment Portable Oxygen * List name and contact numbers for known caregivers / representatives who currently or will assist patient after discharge: Olga - - [phone] Roz Mena - DTR - [phone] [facility] son - [phone] * Verbal permission to speak to the caregivers and representatives has been obtained from the patient. Yes * Community resources currently utilized Home Health Other * Please name any agencies selected above. [facility] * Additional services required to return to the preadmission environment? No * Can the patient safely return to the preadmission environment? Yes * Has this patient been hospitalized within the prior 30 days at any hospital? No Coverage Notice Reviewer: [id number] - Michelle Contreras Notice Issued Date-Time: 05/01/2019 12:16 Notice Type: Patient Choice Letter Notice Delivered To: Family Member Relationship to Patient: Spouse Oyster Sorter Name: Olga Suazo Delivery Method: PHONE - Phone Pooja Days: Prior Verbal Notification: Recipient Understood Notice: Yes Recipient Signature: Med Rec Note Co-signed by Attending: Coverage Notice Comment: [facility] for [facility] and [facility] Reviewer: [email or web address] Hawk Contreras Notice Issued Date-Time: 05/03/2019 12:20 Notice Type: IM Discharge Notice Notice Delivered To: Patient Relationship to Patient: Self Oyster Sorter Name: Delivery Method: HAND - Hand Delivered Pooja Days: Prior Verbal Notification: Recipient Understood Notice: Yes Recipient Signature: Yes Med Rec Note Co-signed by Attending: Coverage Notice Comment: IMM explained, signed, given, copy placed in MR Last DP export: 05/04/19 12:50 p Patient Name: DANAE SUAZO Page [id number] at 1632 All edits/amendments must be made on the electronic document DICTATION DATE: 05/04/19 163 INSTRUCTOR BALLROOM DANCING: GARCIA 05/04/19 1631 RPT#: [id number] [place] DATE: STATUS: ADM IN [facility] [address] [place] [address] END OF REPORT
--- NOTE | 2019-05-04 17:33 | MORECARE ---
CASE MANAGEMENT DISCHARGE SUMMARY PATIENT: DANAE SUAZO UNIT: [id number] ADM DATE: 04/27/19 AGE: 78 : 40 SEX: M ROOM/BED: D.2225 AUTHOR: HEVER CAMPO PHYSICIAN: REFERRING PHYSICIAN: BANDAR HARTMAN DO DATE OF SERVICE: 05/04/19 Discharge Plan Patient Name: DANAE SUAZO Facility: [facility]:[place] : 1940 Planned Disposition: Home with Home Health Anticipated Discharge Date: Discharge Date: 05/04/2019 Expected LOS: Initial Reviewer: [id number] Initial Review Date: 05/01/2019 Generated: 05/04/19 6:33 pm Comments DCP- Discharge Planning Updated by [id number]: Michelle Contreras on 05/04/19 3:[address] HEAD TRACK COACH FAXED TO [facility] FOR [facility]. DCP- Discharge Planning Updated by [email or web address]: Michelle Contreras on 05/04/19 12:[address] I spoke with Arie concerning new nebulizer medicine and faxed her Dr. Mccall's new med order (on CM consult). States she will check nebulizer medications and get a DWO for new meds. CM will continue to follow and assist with discharge planning/needs. DCP- Discharge Planning Updated by [id number]: Michelle Contreras on 05/04/19 12:[address] Patient Name: DANAE SUAZO Encounter No: [id number] : 1940 Primary Insurance: [facility] MEDICARE SOLUTIONS Anticipated DC Date: Planned Disposition: Home with Home Health External Planned Provider: : DCP follow-up note: Patient and family in agreement with discharge plan. No changes to plan. I called Nikki Smith with [facility] and he will be back on the schedule for palliative care. I called Darci with [facility] home health and they will put him back on the schedule, clinical and resumption order faxed. Case management will follow and assist as needed. Michelle Contreras DCP- Discharge Planning Updated by [id number]: Michelle Contreras on 05/01/19 11:[address] Patient Name: DANAE SUAZO Admission Status: ER Accout number: [id number] Admission Date: 04-27-2019 : 1940 Admission Diagnosis: Attending: BANDAR HARTMAN Current LOS: 4 Anticipated DC Date: Planned Disposition: Home with Home Health Primary Insurance: [facility] MEDICARE SOLUTIONS Discharge Planning Comments: CM met with patient to discuss discharge planning, he is alone in the room. States he lives with his in a single story home. He has home health and uses a hospice agency, but cannot tell me which ones, he states to call his for the names. He has oxygen, nebulizer and portable oxygen from [facility]. He plans on returning home with home health. I spoke with his and she states he is to return home with resumption of [facility] for PT and he uses [facility] for palliative care. He is not on Hospice at this time. States his son will take him home at discharge. CM will continue to follow and assist with discharge planning/needs. Bag Machine Operator: Michelle Contreras DCPIA - Discharge Planning Initial Assessment Updated by [id number]: Michelle Contreras on 05/01/19 12:13 pm * Is the patient Alert and Oriented? Yes * How many steps to enter\exit or inside your home? Ramp/0 * PCP Dr. Tapia * Pharmacy [facility] on [facility] * Preadmission Environment Home with Family * ADLs Partial Dependent * Partial ADLs (Assistance needed) Ambulation Medication Management * Equipment Cane Nebulizer Other Oxygen Walker * Other Equipment Portable Oxygen * List name and contact numbers for known caregivers / representatives who currently or will assist patient after discharge: Olga - - [phone] Roz Mena - DTR - [phone] [facility] - son - [phone] * Verbal permission to speak to the caregivers and representatives has been obtained from the patient. Yes * Community resources currently utilized Home Health Other * Please name any agencies selected above. [facility] * Additional services required to return to the preadmission environment? No * Can the patient safely return to the preadmission environment? Yes * Has this patient been hospitalized within the prior 30 days at any hospital? No Coverage Notice Reviewer: [id number] - Michelle Contreras Notice Issued Date-Time: 05/01/2019 12:16 Notice Type: Patient Choice Letter Notice Delivered To: Family Member Relationship to Patient: Spouse Cake Mixer Name: Olga Suazo Delivery Method: PHONE - Phone Pooja Days: Prior Verbal Notification: Recipient Understood Notice: Yes Recipient Signature: Med Rec Note Co-signed by Attending: Coverage Notice Comment: [facility] for [facility] and [facility] Reviewer: [id number] Hawk Contreras Notice Issued Date-Time: 05/03/2019 12:20 Notice Type: IM Discharge Notice Notice Delivered To: Patient Relationship to Patient: Self Cake Mixer Name: Delivery Method: HAND - Hand Delivered Pooja Days: Prior Verbal Notification: Recipient Understood Notice: Yes Recipient Signature: Yes Med Rec Note Co-signed by Attending: Coverage Notice Comment: IMM explained, signed, given, copy placed in MR Last DP export: 05/04/19 3:32 p Patient Name: DANAE SUAZO Page [id number] at 1733 All edits/amendments must be made on the electronic document DICTATION DATE: 05/04/191732 APPLICATIONS PROGRAMMER: GARCIA 05/04/191732 RPT#: [id number] DC DATE:05/04/19 STATUS: DIS IN [facility] [address] [place] [address] END OF REPORT
== END 2019-05-04 17:07 | disposition home health service (06) | DRG 871 ==
LOC: D.ER 19:00 → D.MS 20:27
PROVIDERS: Family Medicine; Internal Medicine Hematology & Oncology; Internal Medicine Nephrology; ADMIT Family Medicine; ATTEND Family Medicine
DX: A41.9 Sepsis, unspecified organism (principal); J15.1 Pneumonia due to Pseudomonas; C34.90 Malignant neoplasm of unspecified part of unspecified bronchus or lung; I50.30 Unspecified diastolic (congestive) heart failure; I48.20 Chronic atrial fibrillation, unspecified; J43.9 Emphysema, unspecified; I11.0 Hypertensive heart disease with heart failure; I25.10 Atherosclerotic heart disease of native coronary artery without angina pectoris; Z95.0 Presence of cardiac pacemaker; Z79.01 Long term (current) use of anticoagulants; I73.9 Peripheral vascular disease, unspecified; E78.5 Hyperlipidemia, unspecified; N40.0 Benign prostatic hyperplasia without lower urinary tract symptoms; F17.200 Nicotine dependence, unspecified, uncomplicated; D63.8 Anemia in other chronic diseases classified elsewhere; D50.9 Iron deficiency anemia, unspecified; N20.0 Calculus of kidney; K57.30 Diverticulosis of large intestine without perforation or abscess without bleeding; I35.0 Nonrheumatic aortic (valve) stenosis; Z99.81 Dependence on supplemental oxygen; Z85.841 Personal history of malignant neoplasm of brain

== ENCOUNTER 2019-09-11 10:49 | Outpatient (CLI) | payer MEDICARE, MEDICAID ==
[~2019-09-11] VITALS: Ht 175.3 cm; Wt 91.8 kg
--- NOTE | ~2019-09-11 | HEMODYNAMI ---
PATIENT:DANAE HUA SR MEDICAL RECORD: [id number] : 40 LOCATION:D.CAT ADMISSION DATE: 09/11/19 Generatedon:09/11/201914:56 Patient name: DANAE HUA Patient #: [id number] SSN: [id number] : 1940 Date of study: 09/11/2019 Page: Of Hemodynamic Procedure Report Patient Data Patient Demographics Procedure consent was obtained First Name: DANAE Gender: Male Last Name: MELITA Suffix: [facility] Initial: LULÚ : 1940 Patient #: [id number] Age: 79 year(s) Race: SSN: [id number] Additional ID: [id number] Contact details Address: [address] [place] [address] State: [place] City: [facility] Zip code: [address] Past Medical History History of disease Date Diagnosis Comments Peripheral vascular disease CHF->KNIGHT CAD Hypertension Allergies Allergen Reaction Date Comments Reported Penicillins 10/08/2015 Penicillins 09/22/2016 Penicillins 10/24/2017 Penicillins 06/23/2018 Penicillins 09/01/2018 Other allergy 09/11/2019 N Admission Admission Data Admission Date: 09/11/2019 Admission Time: 10:49 Arrival Date: 09/11/2019 Arrival Time: 0:00 Admit Source: Other Insurance Payor: Medicare [facility] #: [id number] Height (in.): 69 BSA: 2.08 (m2) Height (cm.): 175.26 BMI: 29.89 (kg/m2) Weight (lbs.): 202.41 Weight (kg.): 91.81 Lab Results Lab Result Date: 09/11/2019 Lab Result Time: 0:00 Biochemistry Name Units Result Min Max BUN mg/dl 30 --(----)-* 7 18 Creatinine mg/dl 1.3 --(---*)-- 0.6 1.3 eGFR ml/min 56 *-(----)-- 90 120 NONAFRICAN CBC Name Units Result Min Max Hematocrit % 27.4 *-(----)-- 42 54 Hemoglobin g/dl 8.2 *-(----)-- 13.5 17.5 Procedure Procedure Types Cath Procedure Diagnostic Procedure PPM/ICD Permanent Pacer Generator Exg. Sedation Charges Moderate Sedation up to 15 minutes Procedure Description Procedure Date Procedure Date: 09/11/2019 Procedure Start Time: 14:38 Procedure End Time: 14:55 Procedure Staff Name Function Milad Ramon MD Assisting physician Elvin Randhawa MD Performing Physician Jayne Campos RT Monitor Aleta Gray RT Scrub Fabrice Kinsey RN Nurse Indication Paroxysmal atrial fibrillation Procedure Data Procedure Complications No complications Procedure Medications Medication Administration Route Dosage 0.9% NaCl I.V. 100 ml/hr Oxygen etCO2 Nasal cannula 2 l/min Lidocaine 1% added to field 20 Vancomycin I.V.P.B 1 g Vancomycin 1 g Irrigation Versed I.V. 2 mg Fentanyl I.V. 100 mcg Hemodynamics Rest BSA: 2.08 (m2) HGB: 8.2 (g/dl) O2 Consumption: Estimated: 244.68 (ml/min) O2 Con sumption indexed: Estimated:117.63 (ml/min/m) Heart Rate: 79 (bpm) Snapshots Pre Cath Intra NCS Post Cath Vital Signs Time Heart Resp SPO2 etCO2 NIBP Rhythm Pain Sedation Rate (ipm) (%) (mmHg) (mmHg) Status Level (bpm) 14:17:32 101 20 93 12 118/72(93) Paced 0 (11) 10(A) , No pain 14:21:42 78 16 96 18.8 120/70(95) Paced 0 (11) 10(A) , No pain 14:25:54 63 15 97 16.6 125/69(96) Paced 0 (11) 10(A) , No pain 14:30:08 58 17 98 17.3 113/69(92) Paced 0 (11) 10(A) , No pain 14:34:18 74 16 98 15.1 115/69(92) Paced 0 (11) 10(A) , No pain 14:38:36 86 18 98 15.8 118/51(61) Paced 0 (11) 9(A) , No pain 14:42:42 121 18 95 21.1 128/77(95) Paced 0 (11) 9(A) , No pain 14:46:45 75 14 96 24.9 111/72(90) Paced 0 (11) 9(A) , No pain 14:50:45 76 17 97 21.8 116/70(94) Paced 0 (11) 10(A) , No pain 14:54:49 65 16 97 16.6 118/64(95) Paced 0 (11) 10(A) , No pain Medications Time Medication Route Dose Verified Delivered Reason Notes Effectiv eness by by 14:20:48 0.9% NaCl I.V. 100 Fabrice Fabrice Per ml/hr Tio Kinsey physician RN RN 14:21:08 Oxygen etCO2 2 Fabrice Fabrice for low 02 Nasal l/min Tio Kinsey sats cannula RN RN 14:21:25 Lidocaine added 20ml Fabrice Fabrice for local 1% to vial Tio Kinsey anesthetic field x 2 RN RN 14:21:47 Vancomycin I.V.P.B 1 g Fabrice Fabrice Per Tio Kinsey physician RN RN 14:22:15 Vancomycin Topical 1 g Fabrice Fabrice used for Irrigation ( added Tio Kinsey procedure to the RN field software engineer ) 14:37:36 Versed I.V. 2 mg Fabrice Fabrice for Lorigan Lorigan sedation RN RN 14:37:46 Fentanyl I.V. 100 Fabrice Fabrice for mcg Lorigan Lorigan sedation RN conditioner tumbler Log Time Note 12:00:32 Informed consent obtained and on chart 12:01:06 Lab Result : Creatinine 1.3 mg/dl 12:01:06 Lab Result : BUN 30 mg/dl 12:01:06 Lab Result : eGFR NONAFRICAN 56 ml/min 12:01:06 Lab Result : Hematocrit 27.4 % 12:01:06 Lab Result : Hemoglobin 8.2 g/dl 12:01:10 Arrival Date: 09/11/2019 12:00:00 AM 12:01:11 Admit Source: Other 12:01:16 Insurance Payor : Medicare 12:01:26 Patient Height : 69 inches 12:01:31 Patient Weight : 202.41 lbs 12:01:52 Diagnostic Cath Status : Elective 12:02:25 Indication : Paroxysmal atrial fibrillation 12:02:32 Procedure Status PPM/ Gen Change/ Lead Revision/ Temp. 12:02:35 Time tracking: Regular hours (M-F 7:00 - 5:00) 12:02:39 Plan of Care:Hemodynamics will remain stable., Cardiac rhythm will remain stable., Comfort level will be maintained., Respiratory function will remain adequate., Patient/ family verbilizes understanding of procedure., Procedure tolerated without complication., Recovers from procedure without complications.. 12:41:00 H&P Date Dictated: 08/27/2019 Within 30 days and on chart.. 12:41:09 Lab results completed and on chart. 12:41:15 Stress Test: no; N/A ? 14:04:04 Aleta Gray RT(R) sent for patient. Start room use. 14:14:09 Patient received from Pre/Post Procedure Room to CCL 3 Alert and oriented. Tansferred to table in Supine position. 14:16:28 Warm blankets applied, and umberto hugger turned on for patient comfort. 14:16:28 Correct patient and procedure confirmed by team. 14:16:29 ECG and BP/O2 sat monitors applied to patient. 14:16:33 Vital chart was started 14:16:38 Baseline sample Acquired. 14:17:05 Rhythm: paced, atrial fibrillation 14:17:09 Full Disclosure recording started 14:17:09 - 14:17:11 Pre-procedure instructions explained to patient. 14:17:11 Pre-op teaching completed and patient verbalized understanding. 14:17:16 Family unavailable. 14:17:23 Patient NPO since Midnight. 14:17:39 Patient allergic to Other allergyPCN 14:17:53 ACC The patient was administered the following blood thiners within the last 24 hours: ACCPlavix 14:17:58 Is patient on blood thinner?Yes 14:18:04 ----Pre-sedation anethsthesia assessment.---- 14:18:09 Previous problem with sedation/anesthesia? No ? 14:18:11 Snore? Yes 14:18:15 Sleep apnea? No 14:18:17 Deviated septum? No 14:18:19 Opens mouth fully? Yes 14:18:21 Sticks out tongue? Yes 14:18:44 Airway obstruction? Yes HX OF LUNG CA/ WEARS HOME O2 AT NIGHT 14:18:54 Dentures? Yes BOTTOM IN TIGHT 14:20:36 Is the patient allergic to Iodine/contrast media? No. 14:20:37 Was the patient premedicated? N/A 14:20:44 If diabetic: On Metformin? N/A 14:20:46 Patient diabetic? No. 14:20:48 0.9% NaCl 100 ml/hr I.V. was administered by Fabrice Kinsey RN; Per physician; Verbal order read back and verified. 14:21:03 Patient pain scale 0/10 ?. 14:21:08 Oxygen 2 l/min etCO2 Nasal cannula was administered by Fabrice Kinsey RN; for low 02 sats; Verbal order read back and verified. 14:21:10 IV patent on arrival in left antecubital with 0.9% NaCl at [facility]. 14:21:12 Alarms reviewed by R. N. 14:21:13 Sharps counted by scrub and verified by R.N. 14:21:25 Lidocaine 1% 20ml vial x 2 added to field was administered by Fabrice Kinsey RN; for local anesthetic; Verbal order read back and verified. 14:21:31 Use device set VINICIUS PPM 14:21:35 2-0 Ticron Multipack ([id number]) opened to sterile field. 14:21:35 3-0 Vicryl Single Pack [id number] opened to sterile field. 14:21:36 5-0 Monocryl PS2 [id number] opened to sterile field. 14:21:37 Cautery Tip Platform Power Technician opened to sterile field. 14:21:37 Cautery Pushbutton Pencil opened to sterile field. 14:21:38 Mepilex Dressing ([id number]) opened to sterile field. 14:21:47 Vancomycin 1 g I.V.P.B was administered by Fabrice Kinsey RN; Per physician; Verbal order read back and verified. 14:22:15 Vancomycin Irrigation 1 g Topical ( added to the field ) was administered by Fabrice Kinsey RN; used for procedure; Verbal order read back and verified. 14:35:07 --------ALL STOP TIME OUT------ 14:35:08 Final Timeout: patient, procedure, and site verified with staff and physician. All members of the team are in agreement. 14:35:13 Right chest site verified by team. 14:35:17 Fire Safety Assessment: A--An alcohol-based skin anteseptic being used preoperatively., C--Open oxygen or nitrous oxide is being used., D--An ESU, laser, or fiber-optic light is being used. 14:35:29 Physical assessment completed. ASA score P 2 - A patient with mild systemic disease as per Elvin Randhawa MD. 14:35:34 Sedation plan: IV Moderate Sedation Medication:Versed, Fentanyl 14:37:10 Procedure started. 14:37:36 Versed 2 mg I.V. was administered by Fabrice Kinsey RN; for sedation; Verbal order read back and verified. 14:37:46 Fentanyl 100 mcg I.V. was administered by Fabrice Kinsey RN; for sedation; Verbal order read back and verified. 14:38:19 Pre sharps counted by scrub and verified by RN: Sutures: 7; Sponges: 5; Stick needles: 2; Skin needles: 2; Blade: 1; Cautery: 1 14:38:32 Grounding pad site Left thigh. 14:38:34 Grounding pad site free from injury. 14:38:41 Lidocaine 1% was administered to right subclavicular area by Milad Ramon MD . 14:39:36 Incision made to right subclavicular area. 14:40:47 Generator pocket made/opened. 14:45:47 PPM Dual was removed.. 14:48:26 BoomBoom Printsa MRI PPM Dual Generator [id number] opened to sterile field. 14:48:29 PPM Dual was inserted subcutaneously to right chest. 14:51:00 Generator was sutured in place with 2-0 ticron. 14:51:14 Subcutaneous closure was completed with 3-0 vicryl. 14:51:17 Device pocket was irrigated with Vancomycin. 14:51:22 Skin closure was completed with 5-0 monocryl. 14:52:20 Post sharps counted by scrub and verified by RN: Sutures: 1; Sponges: 5 ; Stick needles: 2; Skin needles: 2; Blade: 1; Cautery: 1 14:52:29 Rt Chest incision was dressed with Mepilex dressing. 14:52:46 Procedure ended.(Physican Out) 14:53:16 Sharps counted by scrub and verified by R.N. 14:53:26 Post procedure rhythm: paced, atrial fibrillation 14:53:29 Post procedure instruction explained to patient.Patient verbalizes understanding. 14:53:30 Patient needs reinforcement of post procedure teaching. 14:54:00 Procedure type changed to Cath procedure, Diagnostic procedure, PPM/ICD , Permanent Pacer Generator Exg., Sedation Charges, Moderate Sedation up to 15 minutes 14:55:06 Procedure and supply charges have been captured, reviewed, submitted an d are correct. 14:55:10 Procedure Complication : No complications 14:55:14 Operative report dictated upon procedure completion. 14:55:14 See physician's report for complete and final results. 14:55:17 Report given to Pre/Post Procedure Room. 14:55:20 Patient transfered to Pre/Post Procedure Room with Stretcher. 14:55:23 Vital chart was stopped 14:55:25 Procedure ended. 14:55:25 Full Disclosure recording stopped 14:55:32 End room use (Document Last) 14:55:43 End room use (Document Last) 14:56:25 End room use (Document Last) Device Usage Item Name Manufacture Quantity Catalog Hospital Part Current Minimal Lot# / Number Charge Number Stock Stock Serial# Code 2-0 Ticron Ethicon 1 [id number] 112976 03388 [id number] 5 Multipack ([id number]) 3-0 Vicryl Ethicon 1 [id number] 143936 290024 5 Single Pack [id number] 5-0 Monocryl Ethicon 1 [id number] [id number] 876603 024400 5 PS2 Y495G Cautery Tip Microtek 1 [id number] 886328 566907 417890 5 Platform Power [employer] Cautery Microtek 1 [id number] 18712 823351 5 Pushbutton [employer] Pencil Mepilex Cardinal 1 847190 746574 292336 510442 5 [facility] ([id number]) Medtronic Medtronic 1 [id number] 332771 813669 259891 5 Advisa MRI [id number] PPM Dual EXP: Generator 11/07/2020 [id number] Signature Audit Matthews Stage Time Signature Unsigned Intra-Procedure 09/11/2019 Aleta Gray 2:55:43 PM RT(R) Intra-Procedure 09/11/2019 Fabrice 2:56:25 PM Tio BRADLEY Intra-Procedure 09/11/2019 Elvin Marlow 2:56:44 PM Jordi RIDDLE [facility] [address] [place] [address]
--- NOTE | ~2019-09-11 | OP ---
PATIENT NAME: DANAE HUA SR MEDICAL RECORD: [id number] :40 LOCATION:D.CAT ADMISSION DATE: SURGEON: MILAD COLVIN MD DATE OF OPERATION: 09/11/2019 PREOPERATIVE DIAGNOSES: 1. End-of-life generator. 2. Atrial fibrillation. POSTOPERATIVE DIAGNOSES: 1. End-of-life generator 2. Atrial fibrillation. PROCEDURE: Right subclavian vein dual lead pacemaker generator exchange. SURGEON: Milad Colvin MD REPORT OF PROCEDURE: The patient's right chest was prepped and draped in sterile fashion. A 20 mL of 1% lidocaine with epinephrine was infused into the surrounding tissues. A transverse incision was made on the right superolateral chest and we encountered the pacemaker using electrocautery. We opened up the surrounding sheath and was able to eventually eviscerate the pacemaker from the wound. The pacemaker was disconnected from the indwelling leads and a new pacemaker generator was affixed to the leads. This pacemaker was functioning appropriately. We then opened up the pocket a little bit wider and was able to place the pacemaker generator into the subcutaneous pouch. We irrigated out the wound with antibiotic solution. The subcutaneous tissues were reapproximated with interrupted 3-0 Vicryl and the skin was closed with running subcutaneous 5-0 Monocryl. COMPLICATIONS: None. CONDITION: Stable. ANESTHESIA: Local MAC. BLOOD LOSS: Minimal. TRANSINT:[id number] Voice Confirmation ID: [id number] DOCUMENT ID: [id number] MILAD COLVIN MD CC: [id number] DICTATION DATE: 09/11/19 1458 BULBS FARMWORKER: 09/11/19 1733 DEP CLI 09/11/19 [address] [place] [place] [address]
[~2019-09-11 10:49] MED LIST changes: +BROVANA15 MCG/2 M INH; +EFFER-K 25 MEQ25 MEQ PO; +IPRAT-ALBUT 0.5-3 ML UPD; +LEVAQUIN750 MG PO; +LEVOFLOXAC500 MG/100 IV; +MUCINEX DM ER1 EAC1 PO; +MULTI-DAY VITAM1 TAB PO; +NITROSTAT0.4 MG SL; +POTASSIUM99 M1 PO; +PULMICORT0.5 MG/21 INH; +SOMA350 MG; +ZANAFLEX4 MG
[2019-09-11 11:30] VITALS: BP 159/63; Ht 175.3 cm; Wt 91.8 kg
[2019-09-11 11:39] LABS: HEMATOCRIT 27.4 % (42.0-54.0); HEMOGLOBIN 8.2 g/dL (13.5-17.5); MCH 27.7 pg (26.0-34.0); MCHC 29.9 g/dL (31.0-37.0); MCV 92.6 fL (80.0-100.0); MEAN PLATELET VOLUME 10.9 fL (7.4-10.4); RBC 2.96 10x6/uL (4.20-6.10); RDW 18.4 % (11.5-14.5); WBC 10.8 10x3/uL (4.8-10.8)
[2019-09-11 11:44] LABS: ANION GAP 12.7 mmol/L (8-16); CALCIUM 8.5 mg/dL (8.5-10.1); CREATININE - SERUM 1.3 mg/dL (0.6-1.3); POTASSIUM - SERUM 4.7 mmol/L (3.5-5.1)
[2019-09-11 11:55] LABS: APTT 30.2 SECONDS (22.8-39.4); INR 1.12 (0.85-1.17); PROTIME 14.3 SECONDS (11.6-15.0)
[2019-09-11] MEDS ORDERED: HYDROCODON-ACE1 EA10 PO (14:54)
--- NOTE | 2019-09-11 15:10 | NUR ---
REC'D TO ROOM 4 VIA STRETCHER FROM [employer]NA[facility] [employer]. MONITORS ESTAB. PT AWAKE AND ORIENTED. SEE PAIN MANAGEMENT NURSE.
--- NOTE | 2019-09-11 15:28 | NUR ---
PT UP IN BED EATING SANDWICH. R CHEST PPM SITE C/D/I. VSS.
--- NOTE | 2019-09-11 15:49 | NUR ---
R CHEST PPM SITE C/D/I. VSS. PIV D/C'D INTACT, DSG APPLIED. PT ALLOWED UP TO GET DRESSED.
--- NOTE | 2019-09-11 16:00 | NUR ---
ALL DISCHARGE INSTRUCTIONS INCLUDING MEDS (RESTARTING XARELTO THURS), RESTRICTIONS AND FOLLOW UP REVIEWED WITH PT. PT D/C'D VIA WC TO PRIVATE VEHICLE WITH SON - I WENT OVER THE DC INSTRUCTIONS WITH HIM WELL. PT HAD ALL PAPER WORK AND BELONINGS.
== END 2019-09-11 16:00 | disposition home or self-care (01) ==
LOC: D.CATH 10:49
PROVIDERS: ATTEND Internal Medicine Interventional Cardiology
DX: I48.0 Paroxysmal atrial fibrillation (principal); E78.5 Hyperlipidemia, unspecified; Z45.018 Encounter for adjustment and management of other part of cardiac pacemaker; I49.5 Sick sinus syndrome; I10 Essential (primary) hypertension; I25.119 Atherosclerotic heart disease of native coronary artery with unspecified angina pectoris; I73.9 Peripheral vascular disease, unspecified; J44.9 Chronic obstructive pulmonary disease, unspecified; R06.00 Dyspnea, unspecified; R94.31 Abnormal electrocardiogram [ECG] [EKG]

== ENCOUNTER 2019-09-15 05:53 | Observation (INO) | payer MEDICARE, MEDICAID ==
[2019-09-15] VITALS (8 sets, daily range): BP systolic 98–133; BP diastolic 58–69; Ht 175.3 cm; Wt 90.9 kg
[~2019-09-15] VITALS: Ht 175.3 cm; Wt 90.9 kg
[2019-09-15 06:12] LABS: BASOPHILS 0.1 % (0-2); HEMATOCRIT 30.5 % (42.0-54.0); IMMATURE GRANULOCYTES 0.5 % (0-5); LYMPHOCYTES 14.3 % (15-50); MCH 27.1 pg (26.0-34.0); MCHC 29.5 g/dL (31.0-37.0); MCV 91.9 fL (80.0-100.0); MEAN PLATELET VOLUME 10.3 fL (7.4-10.4); MONOCYTES 12.2 % (2-11); NEUTROPHILS 69.9 % (40-80); PLATELET COUNT 407 10x3/uL (130-400); RBC 3.32 10x6/uL (4.20-6.10); RDW 18.8 % (11.5-14.5); WBC 13.6 10x3/uL (4.8-10.8)
[2019-09-15 06:17] LABS: CALC OSMOLALITY 277 mosm/kg (275-300); CALCIUM 8.9 mg/dL (8.5-10.1); CARBON DIOXIDE 27.3 mmol/L (21.0-32.0); CHLORIDE - SERUM 98 mmol/L (98-107); CREATININE - SERUM 1.2 mg/dL (0.6-1.3); GLUCOSE 95 mg/dL (74-106); POTASSIUM - SERUM 4.3 mmol/L (3.5-5.1); SODIUM 137 mmol/L (136-145); UREA NITROGEN 25 mg/dL (7-18); eGFR NON AFRICAN AMERICAN 62 mL/min (90-120)
[2019-09-15 06:20] LABS: APTT 30.8 SECONDS (22.8-39.4); INR 1.2 (0.85-1.17); PROTIME 15.1 SECONDS (11.6-15.0)
[2019-09-15 06:22] LABS: D-DIMER-QUANTITATIVE 1.53 ug/mLFEU (0.20-0.54)
[2019-09-15 06:31] LABS: ALBUMIN 2.7 g/dL (3.4-5.0); ALKALINE PHOSPHATASE 460 U/L (30-120); ALT (SGPT) 147 U/L (10-68); BILIRUBIN - TOTAL 1.26 mg/dL (0.2-1.3); CKMB 0.6 U/L (0.0-3.6); CREATINE KINASE 113 UL (21-232); PROTEIN - SERUM 7.4 g/dL (6.4-8.2)
[2019-09-15 06:32] LABS: TROPONIN-I < 0.017 ng/mL (0.000-0.060)
[2019-09-15 06:37] LABS: AMYLASE - SERUM 110 U/L (25-115); LIPASE 641 U/L (73-393)
--- NOTE | 2019-09-15 08:43 | NUR ---
RESTING QUIETLY ON STRETCHER WITH SON AT BEDSIDE, PATIENT STATES HIS PAIN LEVEL IS STILL A 10/10, PROVIDER NOTIFIED.
--- NOTE | 2019-09-15 09:09 | NUR ---
PATIENT SITTING UP EATING BREAKFAST, CALL LIGHT WITHIN REACH.
[2019-09-15 10:27] LABS: CKMB 0.8 U/L (0.0-3.6); CREATINE KINASE 107 UL (21-232)
[2019-09-15 10:35] LABS: TROPONIN-I < 0.017 ng/mL (0.000-0.060)
--- NOTE | 2019-09-15 10:45 | NUR ---
RECEIVED PT TO ROOM 2116 VIA STRETCHER AAOX4 RESP UNLABORED O2 ON 2LPM NC SKIN W/D TELEMETRY PLACED CAF WITH PACED BEATS RATE 80 DENIES ANY PAIN AT THIS TIME
[2019-09-15] MEDS ORDERED: XANAX1 MG PO (15:37)
[2019-09-15] MEDS ORDERED: REMERON15 MG PO (15:38)
[2019-09-15] MEDS ORDERED: NAMENDA5 MG PO (15:39)
[2019-09-15] MEDS ORDERED: ZANAFLEX4 MG PO (15:41)
[2019-09-15] MEDS ORDERED: COLACE100 MG PO (15:47)
[2019-09-15] MEDS ORDERED: ZOFRAN4 MG PO (15:48)
[2019-09-15] MEDS ORDERED: PHENERGAN25 M1 PO (15:49)
[2019-09-15] MEDS ORDERED: PROTONIX40 MG PO (15:50)
[2019-09-15] MEDS ORDERED: SINGULAIR10 MG PO (15:51)
[2019-09-15] MEDS ORDERED: FLOMAX0.4 MG PO (15:52)
[2019-09-15] MEDS ORDERED: PROAIR HFA8.5 G1 INH (15:56)
[2019-09-15] MEDS ORDERED: BROVANA15 MCG/2 M INH (15:57)
[2019-09-15] MEDS ORDERED: PULMICORT0.5 MG/21 INH (15:58)
[2019-09-15] MEDS ORDERED: PROMETHAZINE W473 ML PO (15:59)
[2019-09-15 16:22] LABS: CKMB 0.7 U/L (0.0-3.6); CREATINE KINASE 100 UL (21-232); TROPONIN-I < 0.017 ng/mL (0.000-0.060)
--- NOTE | 2019-09-15 17:00 | NUR ---
REPORT RECEIVED FROM SHRADDHA Fernandez AND PATIENT CARE ASSUMED. PATIENT LAYING IN BED AWAKE AND VISITNG WITH FAMILY. PATIENT DENIES ANY NEEDS OR PAIN . WILL CONTINUE TO MONTIOR. SR UP X 2 BED IN LOW POSITION AND CALL LIGHT IN REACH.
--- NOTE | 2019-09-15 19:45 | NUR ---
REPORT RECIEVED AND INITIAL ROUNDS COMPLETED. SON NOW IN ROOM VISITING. PT ALERT/ORIENTED. O2 @ 2L/NC WITH MILD SOB WITH EXERTION GOING TO THE BATHROOM. SALINE LOCK TO RFA. PM/FIB/FLUTTER ON TELEMETRY. CPOC.
--- NOTE | 2019-09-15 21:00 | NUR ---
BEDTIME MEDS GIVEN. REVIEWED SCHEDULED PAIN MEDS AND PT STATES IF HE IS ASLEEP, TO NOT AWAKEN HIM FOR A PAIN PILL. MONITOR AND CPOC.
[2019-09-15 23:27] LABS: CKMB 0.8 U/L (0.0-3.6); CREATINE KINASE 91 UL (21-232)
[2019-09-15 23:30] LABS: TROPONIN-I < 0.017 ng/mL (0.000-0.060)
[2019-09-16 04:00] VITALS: BP 127/62
[2019-09-16 04:46] LABS: BASOPHILS 0 % (0-2); EOSINOPHILS 0 % (0-7); HEMOGLOBIN 7.7 g/dL (13.5-17.5); IMMATURE GRANULOCYTES 0.8 % (0-5); LYMPHOCYTES 7.8 % (15-50); MCHC 29.6 g/dL (31.0-37.0); MCV 91.2 fL (80.0-100.0); MEAN PLATELET VOLUME 10.5 fL (7.4-10.4); MONOCYTES 9.8 % (2-11); NEUTROPHILS 81.6 % (40-80); PLATELET COUNT 358 10x3/uL (130-400); RBC 2.85 10x6/uL (4.20-6.10); RDW 18.7 % (11.5-14.5)
[2019-09-16 04:54] LABS: WBC 7.2 10x3/uL (4.8-10.8)
[2019-09-16 04:58] LABS: ANION GAP 16.1 mmol/L (8-16); CARBON DIOXIDE 24.4 mmol/L (21.0-32.0); CREATININE - SERUM 1.5 mg/dL (0.6-1.3); MAGNESIUM - SERUM 2.2 mg/dL (1.8-2.4); POTASSIUM - SERUM 4.5 mmol/L (3.5-5.1)
[2019-09-16 05:07] LABS: CALCIUM 8.8 mg/dL (8.5-10.1)
[2019-09-16 08:23] VITALS: BP 93/60
--- NOTE | 2019-09-16 08:46 | NUR ---
AM MED GIVEN AT THIS TIME. PT A/O X4, RESP EVEN AND NONLABORED ON 2L. RT FA IV SL. PT DENIES ANY NEEDS AT THIS TIME. CALL LIGHT IN REACH, NAD NOTED,W ILL CONTINUE TO MONITOR.
[2019-09-16 12:19] VITALS: BP 118/62
[2019-09-16 16:33] VITALS: BP 120/58
--- NOTE | 2019-09-16 16:48 | MORECARE ---
CASE MANAGEMENT DISCHARGE SUMMARY PATIENT: DANAE HUA UNIT: [id number] ADM DATE: 09/15/19 AGE: 79 : 40 SEX: M ROOM/BED: D.[facility] [place] AUTHOR: HEVER CAMPO PHYSICIAN: REFERRING PHYSICIAN: KENYETTA PARIKH MD DATE OF SERVICE: 09/16/19 Discharge Plan Patient Name: DANAE [facility]UA [facility] [facility] 1940 Planned Disposition: Home with Hospice Anticipated Discharge Date: 09/15/19 Discharge Date: Expected LOS: 1 Initial Reviewer: [email or web address] Initial Review Date: 09/15/2019 Generated: 09/16/19 5:47 pm DCP- Discharge Planning Updated by [email or web address]: Celina Escamilla on 09/15/19 5:[address] BASILIO SERVED AND SIGNED 09/15/19 @ 1757 Coverage Notice Reviewer: [email or web address] Hawk Escamilla Notice Issued Date-Time: 09/15/2019 17:57 Notice Type: Medicare Outpatient Observation Notice Notice Delivered To: Family Member Relationship to Patient: Spouse Strip Winder Name: Delivery Method: HAND - Hand Delivered Pooja Days: Prior Verbal Notification: Recipient Understood Notice: Yes Recipient Signature: Yes Med Rec Note Co-signed by Attending: Coverage Notice Comment: Patient Name: DANAE HUA Page 01515 at 1648 All edits/amendments must be made on the electronic document DICTATION DATE: 09/16/191646 PRINT MANAGER: GARCIA 09/16/191646 RPT#: [id number] DC DATE: STATUS: ADM IN [facility] [address] [place] [address] END OF REPORT
--- NOTE | 2019-09-16 17:15 | NUR ---
CALLED LAB AND SPOKE WITH ALIVIA, INFORMED HER THAT PT HAS 1 UNIT OF PRBC ORDER AND THEN HE CAN BE DISCHARGED. ASKED ALIVIA IF SHE WOULD SEND SOMEONE TO DRAW HER BLOOD SO HE CAN GET THE BLOOD.
--- NOTE | 2019-09-16 17:16 | MORECARE ---
CASE MANAGEMENT DISCHARGE SUMMARY PATIENT: DANAE HUA UNIT: [id number] ADM DATE: 09/15/19 AGE: 79 : 40 SEX: M ROOM/BED: D.8133 AUTHOR: JAHAIRADOC PHYSICIAN: REFERRING PHYSICIAN: KENYETTA PARIKH MD DATE OF SERVICE: 09/16/19 Discharge Plan Patient Name: DANAE HUA [facility]:[place] : 1940 Planned Disposition: Home with Hospice Anticipated Discharge Date: 09/15/19 Discharge Date: Expected LOS: 1 Initial Reviewer: [email or web address] Initial Review Date: 09/15/2019 Generated: 09/16/19 6:15 pm Comments DCP- Discharge Planning Updated by [email or web address]: Liliana Schmid on 09/16/19 4:[address] PATIENT ADMITTED THRU THE ER WITH CHEST PAIN AND SHORTNESS OF BREATH OF INCREASING SEVERITY W/ NO RELIEF WITH SL NITRO. PATIENT IS ON HOSPICE FOR CA OF THE LUNG [facility] PER THE PHONE NUMBER TAKEN FROM THE . [facility] TELEPHONED [phone]. SPOKE WITH BHARAT. SHE CONFIRMS THE PATIENT IS ON SERVICE FOR LUNG CANCER. SHE DOES NOT SEE A NOTATION OF HIS ER VISIT AND OBS ADMIT TO [facility]. HE REMAINS ON SERVICE. PATIENT HAS AN EXTENSIVE CARDIAC HISTORY W/ INTERVENTIONS. S/P PACEMAKER GENERATOR PLACEMENT 09/11/2019. CARDIOLOGY CONSULT. CLEARED FOR D/C BY CARDIOLOGY. PLAN TO TRANSFUSE HIM W/ ONE UNIT OF PRBCS THIS PM FOR HGB 7.7 HCT 26 PER FAMILY PRACTICE. STATES PATIENT WILL RETURN TO HOME W/ HOSPICE. [facility] FAXED CLINICAL AND DISCHARGE ORDERS W/ DISCHARGE MED LIST TO [phone] DIRECTED BY BHARAT W/ [facility]..CONTACT PHONE NUMBER [phone]. DCP- Discharge Planning Updated by [email or web address]: Celina Escamilla on 09/15/19 5:[address] BASILIO SERVED AND SIGNED 09/15/19 @ 1757 Coverage Notice Reviewer: [email or web address] Hawk Escamilla Notice Issued Date-Time: 09/15/2019 17:57 Notice Type: Medicare Outpatient Observation Notice Notice Delivered To: Family Member Relationship to Patient: Spouse Estate Attorney Name: Delivery Method: HAND - Hand Delivered Pooja Days: Prior Verbal Notification: Recipient Understood Notice: Yes Recipient Signature: Yes Med Rec Note Co-signed by Attending: Coverage Notice Comment: Last DP export: 09/16/19 3:48 p Patient Name: DANAE HUA Page 75112 at 1716 All edits/amendments must be made on the electronic document DICTATION DATE: 09/16/191714 PLANT OPERATOR: GARCIA 09/16/191714 RPT#: [id number] DC DATE: STATUS: ADM IN [facility] [address] [place] [address] END OF REPORT
--- NOTE | 2019-09-16 19:45 | NUR ---
REPORT RECIEVED ADN INITIAL ROUNDS COMPLETED. PT CURRENTLY WITH 1 UNIT OF PRBCS INFUSING. UPON COMPLETION HE MAY BE DISCHARGED. PACEMAKER/FIB PER TELEMETRY. O2 @ 2L/NC. WILL NOTIFY WHEN BLOOD IS COMPLETED TO COME AND PICK HIM UP.
[2019-09-16 20:00] VITALS: BP 118/64
--- NOTE | 2019-09-17 00:35 | NUR ---
FAMILY NOW ARRIVED TO COD CLERK PT. ASSISTED PT TO DRESS. COLLECTED ALL HIS BELONGINGS AND TRANSPORTED HIM VIA WHEELCHAIR TO PRIVATE VEHICLE AND CARE OF HIS SON.
--- NOTE | 2019-09-17 08:59 | MORECARE ---
CASE MANAGEMENT DISCHARGE SUMMARY PATIENT: DANAE HUA UNIT: [id number] ADM DATE: 09/15/19 AGE: 79 : 40 SEX: M ROOM/BED: D.3310 AUTHOR: HEVER CAMPO PHYSICIAN: REFERRING PHYSICIAN: KENYETTA PARIKH MD DATE OF SERVICE: 09/17/19 Discharge Plan Patient Name: DANAE HUA Facility[facility]:[place] : 1940 Planned Disposition: Home with Hospice Anticipated Discharge Date: 09/15/19 Discharge Date: 09/17/2019 Expected LOS: 1 Initial Reviewer: [email or web address] Initial Review Date: 09/15/2019 Generated: 09/17/19 9:59 am Comments DCP- Discharge Planning Updated by [email or web address]: Liliana Schmid on 09/16/19 4:[address] PATIENT ADMITTED THRU THE ER WITH CHEST PAIN AND SHORTNESS OF BREATH OF INCREASING SEVERITY W/ NO RELIEF WITH SL NITRO. PATIENT IS ON HOSPICE FOR CA OF THE LUNG WITH [facility] PER THE PHONE NUMBER TAKEN FROM THE . CM TELEPHONED [phone]. SPOKE WITH BHARAT. SHE CONFIRMS THE PATIENT IS ON SERVICE FOR LUNG CANCER. SHE DOES NOT SEE A NOTATION OF HIS ER VISIT AND OBS ADMIT TO [facility]. HE REMAINS ON SERVICE. PATIENT HAS AN EXTENSIVE CARDIAC HISTORY W/ INTERVENTIONS. S/P PACEMAKER GENERATOR PLACEMENT 09/11/2019. CARDIOLOGY CONSULT. CLEARED FOR D/C BY CARDIOLOGY. PLAN TO TRANSFUSE HIM W/ ONE UNIT OF PRBCS THIS PM FOR HGB 7.7 HCT 26 PER FAMILY PRACTICE. STATES PATIENT WILL RETURN TO HOME W/ HOSPICE. CM FAXED CLINICAL AND DISCHARGE ORDERS W/ DISCHARGE MED LIST TO [phone] DIRECTED BY BHARAT W/ [facility]..CONTACT PHONE NUMBER [phone]. DCP- Discharge Planning Updated by [email or web address]: Celina Escamilla on 09/15/19 5:[address] BASILIO SERVED AND SIGNED 09/15/19 @ 1757 Coverage Notice Reviewer: [id number] Hawk Escamilla Notice Issued Date-Time: 09/15/2019 17:57 Notice Type: Medicare Outpatient Observation Notice Notice Delivered To: Family Member Relationship to Patient: Spouse Blast Furnace Helper Name: Delivery Method: HAND - Hand Delivered Pooja Days: Prior Verbal Notification: Recipient Understood Notice: Yes Recipient Signature: Yes Med Rec Note Co-signed by Attending: Coverage Notice Comment: Last DP export: 09/16/19 4:16 p Patient Name: DANAE HUA Page 55523 at 0859 All edits/amendments must be made on the electronic document DICTATION DATE: 09/17/19858 FILER AND SANDER: GARCIA 09/17/19 0859 RPT#: [id number] DC DATE:09/17/19 STATUS: DIS IN [facility] [address] [place] [address] END OF REPORT
--- NOTE | 2019-09-17 12:16 | EC ---
PATIENT:ADNAE HUA SR DATE OF SERVICE: 09/15/19 SEX: M MEDICAL RECORD: [id number] DATE OF : 40 LOCATION:D.M2 D.211 AGE OF PATIENT: 79 ADMISSION DATE: 09/15/19 REFERRING PHYSICIAN: INTERPRETING PHYSICIAN: BERTRAND MORGAN MD ECHOCARDIOGRAM REPORT ECHO CHARGES 4 ECHO COMPLETE Date: 09/15/19 CLINICAL DIAGNOSIS: ACS HX CAD/STENT/CHEMO ECHOCARDIOGRAPHIC MEASUREMENTS (adult normal given) AC root (d.<3.7cm) 4.1 cm LV Septum d (<1.2 cm> 1.4 cm Valve Excursion 1.2 cm LV Septum (systole) 1.6 cm Left Atria (s.<4.0cm> 3.8 cm LVPW d(<1.2cm) 1.4 cm RV (d.<2.3cm) 2.6 cm LVPW (sytole) 1.6 cm LV diastole(<5.6CM) 5.1 cm MV E-F(>70mm/sec) cm LV systole 3.1 cm LVOT Diameter 2.0 cm MV exc.(>10mm) 2.2 cm Est.ejection fraction (50-75%) % DOPPLER: LVIT cm/sec A 46.0 cm/sec E 85.0 cm/sec LA cm/sec RVSP 19 mmHg LVOT 115 cm/sec AOP1/2T m/s Asc. Ao 168 cm/sec RVOT 72 cm/sec RA cm/sec PA 164 cm/sec AV Gradient Peak 11.30mmHg AV Mean 5.67 mmHg AV Area 2.9 cm MV Gradient Peak 7.36 mmHg MV Mean 1.86 mmHg MV Area cm COMMENTS: Soda Tester: 2 MILDRED ZULUAGA Artist Color Separation: 3 Dr. Sexton TAPE# PACS Pericardial Effusion N DATE OF SERVICE: Adequate 2D, color flow imaging, spectral Doppler, and M-Mode. Mild LVH. LV internal dimensions are normal. Wall motion is normal. EF is greater than or equal to 55%. Aortic valve sclerosis without stenosis by Doppler interrogation. The left atrium is normal. Mitral valve shows no prolapse. Trace MR. Right-sided chambers appear grossly normal. Mild TR. TRANSINT:[id number] Voice Confirmation ID: [id number] DOCUMENT ID: [id number] ECHOCARDIOGRAM REPORT [id number] DANAE HUA SR, GREGORY A MD at 1216 CC: [id number] DICTATION DATE: 09/16/19 1026 MANAGER LEASING: 09/16/19 1221 DIS IN 09/17/19 [facility] [address] [facility] [place] [address]
--- NOTE | 2019-09-17 12:16 | CN ---
PATIENT NAME:DANAE HUA MEDICAL RECORD: [id number] : 40 LOCATION:D. D.2117 ADMIT DATE: 09/15/19 ACCOUNT: [id number] CONSULTING PHYSICIAN: BERTRAND MORGAN MD REFERRING PHYSICIAN: KENYETTA PARIKH MD DATE OF CONSULTATION: 09/15/2019 HISTORY OF PRESENT ILLNESS: A 79-year-old gentleman with known history of coronary artery disease, sick sinus syndrome, status post pacemaker placement, most recently with diagnosis of lung carcinoma status post chemo, onset of chest pain. This morning, somewhat atypical from his previous angina, it is worse with inspiration. We also noticed since that point in time some inspiratory wheezing that is unusual for him. Denies fever or chills. We are asked to see him concerning his cardiovascular status. PAST MEDICAL HISTORY: Includes; 1. History of lung carcinoma, status post chemo. 2. Hypertension. 3. Hyperlipidemia. 4. Obstructive pulmonary disease. 5. Sick sinus syndrome with AFib. ALLERGIES: PENICILLIN. MEDICATIONS: Include Flexeril 5 mg p.o. t.i.d., DuoNeb 3 mL q.i.d., Spiriva 1 puff daily, Xarelto 20 every day, atorvastatin 40 every day, digoxin 0.25 every day, Multaq 400 b.i.d., aspirin 81 every day, [place] 10/325 one every 4 hours p.r.n., Namenda 5 mg at bedtime, Lasix 20 every day. REVIEW OF SYSTEMS: The patient reports easy bruising but reports no swollen glands. The patient reports no fever, no night sweats, no significant weight gain, no significant weight loss. No significant exercise tolerance. The patient reports no dry eyes, no irritation, no vision change. Patient reports no difficulty hearing and no ear pain. Patient reports no frequent nose bleeds or nose and sinus problems. Patient reports on arm pain on exertion. No shortness of breath while lying down. No history of heart murmur. Patient reports no cough, no wheezing or coughing up blood. Patient reports no abdominal pain, no vomiting. Normal appetite. No diarrhea and not vomiting blood. No nausea and no constipation. Patient reports no incontinence. No difficulty urinating. No hematuria. No increased frequency. Patient reports no muscle aches. No weakness, no arthralgias, no back pain. No swelling of the extremities. Patient reports no abnormal mole, no jaundice, no rashes. Reports no loss of consciousness. No weakness and no numbness. No seizures, dizziness, or headaches. The patient reports no depression, no sleep disturbance, feeling safe in a relationship and no alcohol abuse. Patient reports on fatigue. Reports no runny nose or sinus pressure. No itching, no hives, and no frequent sneezing. PHYSICAL EXAMINATION: GENERAL: Elderly gentleman in no acute distress, appears stated age. VITAL SIGNS: Blood pressure 120/68, pulse 81. HEENT: Normocephalic, atraumatic. NECK: No JVD or bruit. HEART: Regular. A II/ systolic ejection murmur. LUNGS: Prolonged expiratory phase with inspiratory and expiratory wheezing. CONSULT REPORT [id number] DANAE HUA SR ABDOMEN: Soft, nontender. EXTREMITIES: Pulses decreased, 1+, with no edema. IMPRESSION AND PLAN: Given his exam and history, we will give one dose of Solu-Medrol, seems to help with his pleuritic type pain as well as breathing issues. Check echocardiographic study for focal wall motion, may be somewhat intravascular volume deplete with elevated BUN. Further recommendations based on clinical course. Thank you for the consultation. TRANSINT:[id number] Voice Confirmation ID: [id number] DOCUMENT ID: [id number] BERTRAND MORGAN MD at 1216 CC: [id number] DICTATION DATE: 09/15/19 1249 JEEPER OPERATOR: 09/15/19 1644 DIS IN 09/17/19 [facility] [address] [id number]
== END 2019-09-17 00:30 | disposition home health service (06) ==
LOC: D.ER 05:53 → D.M2 09:45 → OBSVTIME 10:12 → D.M2 09-17 00:30
PROVIDERS: Emergency Medicine; Family Medicine; ADMIT Emergency Medicine; ATTEND Emergency Medicine
DX: R07.81 Pleurodynia (principal); I11.0 Hypertensive heart disease with heart failure; I48.91 Unspecified atrial fibrillation; I25.10 Atherosclerotic heart disease of native coronary artery without angina pectoris; J43.9 Emphysema, unspecified; C34.90 Malignant neoplasm of unspecified part of unspecified bronchus or lung; N40.0 Benign prostatic hyperplasia without lower urinary tract symptoms; Z79.01 Long term (current) use of anticoagulants; I50.30 Unspecified diastolic (congestive) heart failure; Z95.0 Presence of cardiac pacemaker; D64.9 Anemia, unspecified; G89.29 Other chronic pain; M54.9 Dorsalgia, unspecified; C79.31 Secondary malignant neoplasm of brain; Z66 Do not resuscitate